=== PATIENT | male | born 1950 | race Caucasian/White ===

== ENCOUNTER 2020-07-16 15:13 | Outpatient (CLI) | payer OTHER, SELFPAY ==
--- NOTE | 2020-07-16 15:21 | XR_ITS ---
WS: [id number] SCREENING DEXA SCAN [facility] CLINICAL INFORMATION: HISTORY OF OSTEOPOROSIS F/U COMPARISON: None. FINDINGS: The L1-L4 bone mineral density measures 0.991 g/cm2. This corresponds to a T score score of -1.9 and Z score of -0.7. Left femoral neck bone mineral density measures 0.743 g/cm2. This corresponds to a T score of -2.5 an d Z score of -1.4. Right femoral neck bone mineral density measures 0.722 g/cm2. This corresponds to a T score -2.6of an d Z score of -1.5. Mean femoral neck bone mineral density measures 0.733 g/cm2. This corresponds to a T score of -2.6 an d Z score of -1.4. XR/XR DEXA axial skeleton* [id number] IMPRESSION: Osteoporosis Patient's FRAX calculated 10 year probability for major osteoporotic fracture i s 19.4 % and osteoporotic hip fracture is 10.2%.
== END 2020-07-16 15:14 | disposition home or self-care (01) ==
LOC: RADWPI 15:17
PROVIDERS: PCP Family Medicine; Visit Provider Family Medicine
DX: Z87.898 Personal history of other specified conditions (principal); M81.0 Age-related osteoporosis without current pathological fracture
CPT/HCPCS: 77080

== ENCOUNTER → 2020-08-19 16:22 | Outpatient (BNVA) | payer OTHER, SELFPAY | PROVIDERS: PCP Family Medicine; Visit Provider Surgery | DX: Z11.59 Encounter for screening for other viral diseases (principal); K63.5 Polyp of colon | CPT/HCPCS: 87635 ==

== ENCOUNTER 2021-01-04 11:39 | Emergency (ER) | payer OTHER, SELFPAY ==
[2021-01-04 11:49] VITALS: BP 129/80; PULSE 101; RESP 20; TEMP 37.1; O2SAT 92
--- NOTE | 2021-01-04 11:52 | ECG_ITS ---
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 Measurements Intervals [place]akin Rate: 93 P: 72 NC: 160 QRS: 75 QRSD: 90 T: 69 QT: 346 QTc: 431 Interpretive Statements SINUS RHYTHM WITH SINUS ARRHYTHMIA Compared to ECG 06/08/2018 10:07:10 No significant changes Electronically Signed On 01-04-2021 18:23:49 CDT by Gabe Ruff M.D. [email or web address]/[id number]
--- NOTE | 2021-01-04 11:52 | XRR_ITS ---
PROCEDURE INFORMATION: Exam: XR Chest Exam date and time: 01/04/2021 11:53 AM Age: 70 years old Clinical indication: Chest wall pain; Additional info: Dyspnea/cough TECHNIQUE: Imaging protocol: XR of the chest. Views: 1 view. COMPARISON: CR Chest 1 [place] [id number] 06/08/2018 10:50 AM FINDINGS: Lungs: Unremarkable. No consolidation. Pleural spaces: Unremarkable. No pleural effusion. No pneumothorax. Heart/Mediastinum: Unremarkable. No cardiomegaly. Bones/joints: Unremarkable. XR/XR chest 1V portable [id number] IMPRESSION: No acute findings.
--- NOTE | 2021-01-04 12:03 | ED_ITS ---
HPI - SOB/Dyspnea General: Chief Complaint: Shortness of Breath/Dyspnea Stated Complaint: SOB Time Seen by Provider: 01/04/21 11:47 History of Present Illness: HPI Narrative: 70-year-old male with a history of COPD comes in complaining of increasing cough and shortness of breath for the most part began last night he has a mild productive cough. He has had some chest discomfort no radiation of the pain low-grade fever. He uses albuterol at home is not on any oxygen at home he is also on prednisone 10 mg daily. He is continue to use all of his regular maintenance medications. History of chest pain. MD elicited complaint: shortness of breath and cough Pertinent past history: COPD Onset (ago): hour(s) Timing: constant Severity: mild Exacerbating factors: exertion and coughing Relieving factors: rest Known history of: COPD Associated symptoms: Reports cough, myalgias and nausea; Deny abdominal pain, chest congestion, chest pain, diaphoresis, dizziness, extremity pain, fever(s), hemoptysis, lightheadedness, orthopnea, palpitations, paresthesias, polydipsia, polyuria, rash, sense of impending doom, syncope or vomiting Treatment prior to arrival: none Review of Systems Const: Denies: fever(s) or diaphoresis ENMT: Denies: throat pain, ear or mastoid pain, nasal discharge or nasal congestion Card: Denies: chest pain, palpitations, lightheadedness, syncope or orthopnea Resp: Denies: hemoptysis or chest congestion GI: Reports: nausea; Denies: abdominal pain or vomiting : Denies: flank pain, dysuria, urinary frequency or urinary urgency Musc: Denies: extremity pain Skin/Breast: Denies: rash or pruritus Neuro: Denies: dizziness Endo: Denies: polyuria or polydipsia PFSH ED PFSH: Medical History COPD (chronic obstructive pulmonary disease) Dyslipidemia GERD (gastroesophageal reflux disease) HTN (hypertension), benign PAD (peripheral artery disease) Surgical History H/O circumcision H/O colonoscopy 2014 H/O esophagogastroduodenoscopy History of hip surgery S/P AAA (abdominal aortic aneurysm) repair Family History Other CAD (coronary artery disease) Cancer Diabetes Hypertension Stroke Denies family history of Anesthesia complication Bleeding disorder Social History Smoking and tobacco status: never smoked Alcohol intake: never Household members: significant other Marital status: Single Current occupational status: retired History of recent travel: No Physical Exam Const: COMMON NORMALS: no acute distress GENERAL APPEARANCE: cooperative and comfortable ORIENTATION/CONSCIOUSNESS: Yes awake, Yes oriented to person, Yes oriented to place and Yes oriented to time HENMT: COMMON NORMALS: normocephalic, atraumatic, hearing grossly normal bilaterally and external ears normal HEAD & SCALP: normocephalic and atraumatic EXTERNAL EAR: Yes external ears normal Eye: COMMON NORMALS: Equal, round and reactive pupils present, EOMs intact bilaterally, conjunctivae normal and no scleral icterus CONJUNCTIVA: Yes conjunctivae normal PUPIL: Yes Equal, round and reactive pupils present Neck/C-Spine: COMMON NORMALS: full ROM, no lymphadenopathy, supple and no JVD Lymph: LYMPHATIC: no lymphadenopathy noted and no lymphedema noted Resp: AUSCULTATION: rhonchi and wheezes Cardio: COMMON NORMALS: no JVD, regular rhythm and No murmurs present (Cardio) RATE: tachycardic RHYTHM: regular rhythm GI: COMMON NORMALS: Soft to palpation and No hepatosplenomegaly present AUSCULTATION: Yes normoactive bowel sounds PALPATION: Yes Soft to palpation, No Tenderness to palpation present (GI), No Guarding due to palpation present (GI) and Yes No hepatosplenomegaly present Extremity: COMMON NORMALS: normal to inspection, capillary refill normal, no clubbing, cyanosis or edema, no calf tenderness and no pedal edema Neuro: SENSORIUM/ORIENTATION: Yes oriented to person, Yes oriented to place and Yes oriented to time Skin: COMMON NORMALS: no rashes or lesions noted GENERAL SKIN EXAM: no rashes or lesions noted Course Vital Signs: Vital signs: Vital Signs Temperature 98.7 F 01/04/21 11:49 Pulse Rate 93 01/04/21 18:15 Respiratory Rate 18 01/04/21 18:15 Blood Pressure 99/76 01/04/21 18:15 Pulse Oximetry 93 01/04/21 18:15 MDM - SOB/Dyspnea MDM Narrative: Medical decision making narrative: Improved after nebulizers. Chest x-ray shows no acute pneumonia. He is not requiring any oxygen at this point. His Covid negative will start on doxycycline increase steroids recheck with his primary care within the next 2 to 3 days if worsens return to the emergency room. EKG troponin unremarkable Lab Data: Labs: Lab Results 01/04/21 01/04/21 01/04/21 Range/Units 11:59 12:55 12:55 WBC 16.3 H (4.0-10.0) 10^3/ uL RBC 4.62 (4.1-5.3) 10^6/u L Hgb 15.1 (11.7-16.6) g/dL Hct 42.1 (42.0-52.0) % MCV 91.1 (80-94) fL MCH 32.7 (28.0-34.0) pg MCHC 35.9 (30.0-36.0) g/dL RDW 11.7 L (12.1-15.1) % Plt Count 205 (130-400) 10^3/c mm MPV 9.4 (7.4-10.4) fL Neut % (Auto) 89.4 % Lymph % (Auto) 4.7 % Erie % (Auto) 4.5 % Eos % (Auto) 0.5 % Baso % (Auto) 0.5 % Neut # (Auto) 14.57 H (1.8-7.7) 10^3/u L Lymph # (Auto) 0.8 (0.8-4.8) 10^3/u L [place] # (Auto) 0.7 (0.2-0.9) 10^3/u L Eos # (Auto) 0.1 (0.0-0.8) 10^3/u L Baso # (Auto) 0.1 (0.0-0.1) 10^3/u L Nucleated RBC % (a uto) 0 % Nucleated RBCs # 0.0 /100WBC Specimen Type Arterial Sample Site Radial, left ABG pH 7.50 H (7.35-7.45) ABG pCO2 33.2 L (35-45) mmHg ABG pO2 56.9 L (80.0-100.0) mmH g ABG HCO3 25.7 (22-26) mmol/L ABG O2 Saturation 93.3 ABG Base Excess 3.0 H (-2.0-2.0) mmol/ L William Test Pos A-a O2 Gradient 6.8 (5-10) mmHg Hematocrit 47.9 (42-52) % Hgb O2 Saturation 91.3 L (95-100) % Carboxyhemoglobin 1.4 (0.4-20.1) %THgb Methemoglobin 0.7 (0.4-1.5) % Total Hemoglobin 15.6 (14-18) g/dL Sodium 139.0 138 (131-143) mmol/L Potassium 3.5 3.8 (3.5-5.0) mmol/L Glucose 95.0 92 (70-115) mg/dL Ionized Calcium 1.2 (1.1-1.4) mmol/L O2 Delivery Device Room air FiO2 21.0 % Business Services Specialist Sales ID Cak Chloride 103 (98-107) mmol/L Carbon Dioxide 25 (22-29) mmol/L Anion Gap 13.8 (5-19) BUN 10 (8-23) mg/dL Creatinine 0.9 (0.7-1.2) mg/dL GFR Calculation 83.7 L (90-130) mL/min Calculated Osmolal ity 285 (285-295) mOsm/k g Calcium 8.8 (8.5-10.5) mg/dL Total Bilirubin 0.7 (0.15-1.2) mg/dL AST 19 (0-40) U/L ALT 20 (0-41) U/L Alkaline Phosphata se 61 (40-130) IU/L Troponin T Baselin e (0-15) ng/L Troponin T 120 Min [place] (0-15) ng/L Delta Troponin T (0-10) ABS# Total Protein 5.8 L (6.6-8.7) g/dL Albumin 4.2 (3.5-5.2) g/dL Globulin 1.6 (1.3-4.6) g/dL SARS-CoV-2 Ag (Rap id) (Negative) 01/04/21 01/04/21 01/04/21 Range/Units 12:55 13:30 15:00 WBC (4.0-10.0) 10^3/ uL RBC (4.1-5.3) 10^6/u L Hgb (11.7-16.6) g/dL Hct (42.0-52.0) % MCV (80-94) fL MCH (28.0-34.0) pg MCHC (30.0-36.0) g/dL RDW (12.1-15.1) % Plt Count (130-400) 10^3/c mm MPV (7.4-10.4) fL Neut % (Auto) % Lymph % (Auto) % [place] % (Auto) % Eos % (Auto) % Baso % (Auto) % Neut # (Auto) (1.8-7.7) 10^3/u L Lymph # (Auto) (0.8-4.8) 10^3/u L [place] # (Auto) (0.2-0.9) 10^3/u L Eos # (Auto) (0.0-0.8) 10^3/u L Baso # (Auto) (0.0-0.1) 10^3/u L Nucleated RBC % (a uto) % Nucleated RBCs # /100WBC Specimen Type Sample Site ABG pH (7.35-7.45) ABG pCO2 (35-45) mmHg ABG pO2 (80.0-100.0) mmH g ABG HCO3 (22-26) mmol/L ABG O2 Saturation ABG Base Excess (-2.0-2.0) mmol/ L William Test A-a O2 Gradient (5-10) mmHg Hematocrit (42-52) % Hgb O2 Saturation (95-100) % Carboxyhemoglobin (0.4-20.1) %THgb Methemoglobin (0.4-1.5) % Total Hemoglobin (14-18) g/dL Sodium (131-143) mmol/L Potassium (3.5-5.0) mmol/L Glucose (70-115) mg/dL Ionized Calcium (1.1-1.4) mmol/L O2 Delivery Device FiO2 % Business Services Specialist Sales ID Chloride (98-107) mmol/L Carbon Dioxide (22-29) mmol/L Anion Gap (5-19) BUN (8-23) mg/dL Creatinine (0.7-1.2) mg/dL GFR Calculation (90-130) mL/min Calculated Osmolal ity (285-295) mOsm/k g Calcium (8.5-10.5) mg/dL Total Bilirubin (0.15-1.2) mg/dL AST (0-40) U/L ALT (0-41) U/L Alkaline Phosphata se (40-130) IU/L Troponin T Baselin e 11 (0-15) ng/L Troponin T 120 [address] [place] 9.25 (0-15) ng/L Delta Troponin T -1.75 L (0-10) ABS# Total Protein (6.6-8.7) g/dL Albumin (3.5-5.2) g/dL Globulin (1.3-4.6) g/dL SARS-CoV-2 Ag (Rap id) Negative (Negative) Discharge Plan Discharge Patient Disposition: Home Clinical Impression: Acute exacerbation of chronic obstructive airways disease Condition: Stable Prescriptions: New doxycycline hyclate 100 mg capsule 100 mg PO BID 10 Days Qty: 20 RF: 0 prednisone 50 mg tablet 50 mg PO DAILY 7 Days Qty: 7 RF: 0 Discontinued prednisone 10 mg tablet 10 mg PO DAILY RF: 0 No Action albuterol sulfate 2.5 mg /3 mL (0.083 %) solution for nebulization 2.5 mg inhalation Q6H PRN (Reason: Dyspnea) RF: 0 amlodipine 5 mg tablet 5 mg PO DAILY RF: 0 azithromycin 500 mg tablet 500 mg PO .COMPLEX RF: 0 budesonide-formoterol 160-4.5 mcg/actuation HFA aerosol inhaler 2 puff inhalation Q12H RF: 0 cholecalciferol (vitamin D3) 50 mcg (2,000 unit) capsule 50 mcg PO DAILY RF: 0 multivitamin Tablet 1 tab PO DAILY RF: 0 rosuvastatin 20 mg tablet 10 mg PO DAILY RF: 0 tiotropium bromide 2.5 mcg/actuation mist 2 inh inhalation QAM RF: 0 omeprazole 20 mg Tablet,Delayed Release (Dr/Ec) 20 mg PO DAILY RF: 0 bee pollen 1,000 mg Tablet,Chewable 1,000 mg PO BID RF: 0 Discharge Orders: Discharge ED (Routine); Ordered 01/04/21 Ordered By: Jose Costa Referrals: Rutyh Piña MD [Primary Care Provider] - Discharge Diet: Usual diet Discharge Activity: Increase activity as tolerated Patient Instructions: Opioid Safety Activity Restrictions/Additional Instructions: You were tested for COVID-19 today. Recommend that you remain in self quarantine until the results are available. Return to the emergency room if you have worsening problems. Follow-up with your doctor within the next week. Coding Level of Care Code ED Body And Fender Mechanic for Brandy Fwd Exam Comprehensive
[2021-01-04 12:10] LABS: ABG PCO2 33.2 mmHg (35-45); Alveolar-Arterial Oxygen Gradi 6.8 mmHg (5-10); Arterial Blood Gas Hematocrit 47.9 % (42-52); Blood Gas Allen Test Pos; Blood Gas Operator Identificat CAK; Blood Gas Sample Site Radial, left; Blood Gas Sample Type Arterial; Carboxyhemoglobin 1.4 %THgb (0.4-20.1); HCO3 ABG 25.7 mmol/L (22-26); HGB O2 Sat 91.3 % (95-100); Ionized Calcium Level - ABG 1.2 mmol/L (1.1-1.4); Methemoglobin 0.7 % (0.4-1.5); Oxygen Device ROOM AIR; Oxygen Saturation ABG 93.3; PO2 ABG 56.9 mmHg (80.0-100.0); Potassium Level - ABG 3.5 mmol/L (3.5-5.0); Total Hemoglobin 15.6 g/dL (14-18)
[2021-01-04 13:05] LABS: Basophils # 0.1 10^3/uL (0.0-0.1); Basophils % 0.5 %; Eosinophils # 0.1 10^3/uL (0.0-0.8); Eosinophils % 0.5 %; Hematocrit 42.1 % (42.0-52.0); Hemoglobin 15.1 g/dL (11.7-16.6); Lymphocytes # 0.8 10^3/uL (0.8-4.8); Lymphocytes % 4.7 %; Mean Corpuscular HGB Conc 35.9 g/dL (30.0-36.0); Mean Corpuscular Hemoglobin 32.7 pg (28.0-34.0); Mean Corpuscular Volume 91.1 fL (80-94); Mean Platelet Volume 9.4 fL (7.4-10.4); Monocytes # 0.7 10^3/uL (0.2-0.9); Monocytes % 4.5 %; Neutrophils # 14.57 10^3/uL (1.8-7.7); Neutrophils % 89.4 %; Nucleated Red Blood Cells % 0 %; Platelet Count 205 10^3/cmm (130-400); Red Blood Count 4.62 10^6/uL (4.1-5.3); Red Cell Distribution Width 11.7 % (12.1-15.1); White Blood Count 16.3 10^3/uL (4.0-10.0)
[2021-01-04 13:22] LABS: Alanine Aminotransferase 20 U/L (0-41); Albumin Level 4.2 g/dL (3.5-5.2); Alkaline Phosphatase 61 IU/L (40-130); Anion Gap 13.8 (5-19); Aspartate Amino Transferase 19 U/L (0-40); Blood Urea Nitrogen 10 mg/dL (8-23); Calcium 8.8 mg/dL (8.5-10.5); Carbon Dioxide 25 mmol/L (22-29); Chloride 103 mmol/L (98-107); Globulin 1.6 g/dL (1.3-4.6); Glomerular Filtration Rate 83.7 mL/min (90-130); Glucose 92 mg/dL (65-115); Osmolality Calculated 285 mOsm/kg (285-295); Potassium 3.8 mmol/L (3.5-5.1); Sodium 138 mmol/L (136-145); Total Bilirubin 0.7 mg/dL (0.15-1.2); Total Protein 5.8 g/dL (6.6-8.7)
[2021-01-04 13:26] LABS: Troponin(5th) Baseline 11 ng/L (0-15)
--- NOTE | 2021-01-04 13:52 | ECG_ITS ---
[facility] Test Date: 2021-01-04 Pat Name: Brian Russo Department: Room: Gender: Male Testing Tech: : 1950 Requested By: Jose Nguyen Order Number: [id number] Renita MD: Gabe Ruff M.D. Measurements Intervals [place]ift Rate: 89 P: 74 VA: 161 QRS: 79 QRSD: 97 T: 75 QT: 357 QTc: 435 Interpretive Statements SINUS RHYTHM Compared to ECG 01/04/2021 12:12:13 Sinus arrhythmia no longer present Electronically Signed On 01-04-2021 18:25:09 CDT by Gabe Ruff M.D. [email or web address] [email or web address] anderson hospitalIoxus/store/OM/[id number]
[2021-01-04 14:31] LABS: SARS Covid-2 Antigen Negative (Negative)
[2021-01-04 15:37] LABS: Troponin 5 2HR 9.25 ng/L (0-15)
[2021-01-04 15:45] LABS: Troponin 5 2HR Delta -1.75 ABS# (0-10)
[2021-01-04] MEDS: piperacillin-tazobactam 3.375 GM in sodium chloride 0.9% (plus) 50 ML IV (16:00)
[2021-01-04] MEDS: levofloxacin-dextrose 5 % 750 MG/150 ML PREMIX 100 MG IV (16:13)
[2021-01-04 17:35] VITALS: BP 99/76; PULSE 93; RESP 18; O2SAT 93
[2021-01-04] MEDS: acetaminophen 500 mg Tablet 1000 MG PO (18:00)
[2021-01-04 18:15] VITALS: BP 99/76; PULSE 93; RESP 18; O2SAT 93
[2021-01-05 16:00] LABS: Coronavirus Test Green County Not Detected
== END 2021-01-04 18:16 | disposition home or self-care (01) ==
PROVIDERS: Emergency Provider Family Medicine; PCP Family Medicine
DX: J44.1 Chronic obstructive pulmonary disease with (acute) exacerbation (principal); E78.5 Hyperlipidemia, unspecified; I10 Essential (primary) hypertension
CPT/HCPCS: 36415; 36600; 71045; 80051; 80053; 82330; 82805; 84484; 85025; 87040; 87426; 87635; 93005; 96365; 96367; 96375; 99284; J1956; J2543; J2930

== ENCOUNTER → 2021-12-09 09:18 | Outpatient (BNVA) | payer OTHER, SELFPAY | PROVIDERS: PCP Family Medicine; Referring Provider Family Medicine; Visit Provider Orthopaedic Surgery | DX: S22.009A Unspecified fracture of unspecified thoracic vertebra, initial encounter for closed fracture (principal); W19.XXXA Unspecified fall, initial encounter | CPT/HCPCS: 99204 ==

== ENCOUNTER 2022-01-24 02:30 | Emergency (ER) | payer OTHER, SELFPAY ==
[2022-01-24 02:36] VITALS: BP 175/91; PULSE 85; RESP 20; TEMP 36.7; O2SAT 98; BMI 17.9
[2022-01-24] MEDS: ondansetron 4 MG Tablet PO (03:39)
[2022-01-24] MEDS: HYDROmorphone 1 mg/mL INJ 1 mL IM (03:39)
--- NOTE | 2022-01-24 03:39 | PC.NURSE ---
Pt. states that he does not have a ride home , but he does not want a pill or a prescription that he can take home , because he needs the shot for the pain now.
--- NOTE | 2022-01-24 04:39 | W.ED.BACK ---
HPI - Back Pain/Injury General: Chief Complaint: Back Pain/Injury Stated Complaint: back pain Time Seen by Provider: 01/24/22 02:31 Source: patient History of Present Illness: 71-year-old male with a history of chronic back pain. He was diagnosed with a, passion fracture at T5 he says in October. He has had pain since that time. He has not been taking pain medication, although he experienced an exacerbation of his pain tonight, and took one of his 's tramadol without much relief. He has pain only with movement. He is lying resting comfortably on my exam. Pain is not radicular in nature. He has no increased weakness, and no loss of control of bowel or bladder function. MD elicited complaint: back pain Pertinent past history: prior back pain Onset (ago): week(s) Timing: intermittent Severity: similar to previous episodes Quality: sharp and aching Location: thoracic spine Radiation: none Exacerbating factors: movement and walking Relieving factors: none Associated symptoms: Deny abdominal pain, change in bowel habits, fecal incontinence, fever(s), nausea, tingling/numbness/burning, vomiting or weakness Review of Systems Const: Denies: fever(s) Card: Denies: chest pain Resp: Denies: dyspnea GI: Denies: abdominal pain, nausea, vomiting, fecal incontinence or change in bowel habits Neuro: Denies: headache(s) PFSH ED PFSH: Medical History COPD (chronic obstructive pulmonary disease) Dyslipidemia GERD (gastroesophageal reflux disease) HTN (hypertension), benign PAD (peripheral artery disease) Surgical History H/O circumcision H/O colonoscopy 2014 H/O esophagogastroduodenoscopy History of hip surgery S/P AAA (abdominal aortic aneurysm) repair Family History Other CAD (coronary artery disease) Cancer Diabetes Hypertension Stroke Denies family history of Anesthesia complication Bleeding disorder Social History Smoking and tobacco status: former smoker Alcohol intake: never Household members: significant other Marital status: Single Current occupational status: retired History of recent travel: No Physical Exam Const: COMMON NORMALS: no acute distress GENERAL APPEARANCE: cooperative NUTRITIONAL APPEARANCE: cachectic HENMT: COMMON NORMALS: normocephalic and atraumatic HEAD & SCALP: normocephalic and atraumatic Eye: COMMON NORMALS: Equal, round and reactive pupils present and EOMs intact bilaterally PUPIL: Yes Equal, round and reactive pupils present Chest: COMMONS NORMALS: normal inspection of the chest CHEST: Yes Symmetrical chest wall rise Resp: COMMON NORMALS: normal respiratory effort, No use of accessory muscles and clear to auscultation bilaterally AUSCULTATION: clear to auscultation bilaterally Cardio: COMMON NORMALS: regular rate and regular rhythm RATE: regular rate RHYTHM: regular rhythm GI: COMMON NORMALS: Normal to inspection, nondistended, normoactive bowel sounds present, Soft to palpation and non-tender PALPATION: Yes Soft to palpation Back/Pelvis: OTHER: Exam lumbar spine reveals no step-off deformity. There is no discrete midline tenderness. There are some tenderness to the paraspinal musculature bilaterally in the thoracic region. There is no radicular pain. No weakness to the lower extremities. Extremity: COMMON NORMALS: capillary refill normal Neuro: CHUCK COMA SCALE: document GCS findings [place] coma scale eye opening: Spontaneous [place] coma scale verbal response: Orientated Chuck coma scale motor response: Obey commands Chuck coma scale total score: 15 SENSORY EXAM: Yes extremities (Intact) Course Vital Signs: Vital signs: Vital Signs Temperature 98.1 F 01/24/22 02:36 Pulse Rate 85 01/24/22 02:36 Respiratory Rate 20 H 01/24/22 02:36 Blood Pressure 175/91 01/24/22 02:36 Pulse Oximetry 98 01/24/22 02:36 MDM - Back Pain/Injury Medical Decision Making Patient having exacerbation of chronic back pain this morning. He has no red flag symptoms. Pain is mainly with movement. He rests comfortably when he is lying still. He is given pain medication, and allowed discharge. Close outpatient follow-up with his doctor. He has an appointment on Monday. Discharge Plan Discharge Patient Disposition: Home Clinical Impression: Back pain Condition: Stable Prescriptions: Continued hydrocodone-acetaminophen 5-325 mg tablet 1 tab PO Q4H PRN (Reason: pain) 7 Days Qty: 10 0RF No Action albuterol sulfate 2.5 mg /3 mL (0.083 %) solution for nebulization 2.5 mg inhalation Q6H PRN (Reason: Dyspnea) 0RF amlodipine 5 mg tablet 5 mg PO DAILY 0RF budesonide-formoterol 160-4.5 mcg/actuation HFA aerosol inhaler 2 puff inhalation Q12H 0RF cholecalciferol (vitamin D3) 50 mcg (2,000 unit) capsule 50 mcg PO DAILY 0RF multivitamin Tablet 1 tab PO DAILY 0RF rosuvastatin 20 mg tablet 10 mg PO DAILY 0RF tiotropium bromide 2.5 mcg/actuation mist 2 inh inhalation QAM 0RF omeprazole 20 mg Tablet,Delayed Release (Dr/Ec) 20 mg PO DAILY 0RF bee pollen 1,000 mg Tablet,Chewable 1,000 mg PO BID 0RF Discharge Orders: Discharge ED (Routine); Ordered 01/24/22 Ordered By: Ritesh Bryan Referrals: Ruthy Piña MD [Primary Care Provider] - 1-3 days Discharge Diet: Advance as tolerated Discharge Activity: Increase activity as tolerated Patient Instructions: Back Pain (ED), Opioid Safety Activity Restrictions/Additional Instructions: Return for worsening pain despite treatment, fever, vomiting or diarrhea, shortness of breath, chest discomfort, any other concerning symptoms. Coding Level of Care Code ED Manager Recovery for Brandy Reece
[2022-01-24 05:27] VITALS: BP 168/72; PULSE 103; RESP 18; O2SAT 92
[2022-01-24 08:08] VITALS: BP 168/72; PULSE 103; RESP 18; O2SAT 92
== END 2022-01-24 08:09 | disposition home or self-care (01) ==
PROVIDERS: Emergency Provider Emergency Medicine; PCP Family Medicine
DX: M54.6 Pain in thoracic spine (principal); G89.29 Other chronic pain
CPT/HCPCS: 96372; 99283; J1170; Q0162

== ENCOUNTER 2022-01-25 14:37 | Emergency (ER) | payer OTHER, SELFPAY | END 2022-01-26 00:32 | disposition left against medical advice (07) | PROVIDERS: Emergency Provider Family Medicine; PCP Family Medicine | DX: Z53.21 Procedure and treatment not carried out due to patient leaving prior to being seen by health care provider (principal); S22.050A Wedge compression fracture of T5-T6 vertebra, initial encounter for closed fracture; X58.XXXA Exposure to other specified factors, initial encounter | CPT/HCPCS: 72070; 99214 ==

== ENCOUNTER 2022-02-08 09:27 | Outpatient (CLI) | payer OTHER, SELFPAY ==
--- NOTE | 2022-02-08 09:30 | MR_ITS ---
WS: [id number] MRI THORACIC SPINE noncontrast. HISTORY: Fell several months ago. Severe back pain. Known thoracic fracture. COMPARISON: Thoracic spine radiograph 01/26/2012 TECHNIQUE: Multiplanar sequences are performed in sagittal and axial planes. Increase in the cervical lordosis and thoracic kyphosis. T3: Loss of the normal superior endplate of T3 anteriorly. No retropulsion of the vertebral body. Mix ed low and high signal along the superior endplate. Loss of height approximately 20%. T5: 50% compression fracture with very slight posterior bulging of the mid vertebral body without con tact on the cord. Marrow edema slightly greater to the LEFT of midline. No additional fractures are identified. No additional edema. Signal within the cord is normal. Conus tapers normally and ends at T12. T1-2: Normal. T2-3: Mild facet arthritis. No stenosis. T3-4: Normal. T4-5: Normal. T5-6: Slight retropulsion of the posterior mid T5 vertebral body by 2 mm. No cord contact. T6-7: Normal. T7-8: Normal. T8-9: Mild bilateral facet joint arthritis. No stenosis. T9-10: Mild facet arthritis. T10-11: Mild bilateral facet arthritis. Mild foraminal narrowing. T11-12: Mild bilateral facet arthritis. Paravertebral soft tissues are negative. Mild atherosclerotic plaque throughout the thoracic aorta. MR/MR thoracic spin wo con* [id number] IMPRESSION: 1. Subacute T3 and T5 fractures as described above. 2. 2 mm retropulsion of the mid T5 vertebral body. No cord contact. 3. Multilevel mild facet arthritis as above.
== END 2022-02-08 09:28 | disposition home or self-care (01) ==
PROVIDERS: PCP Family Medicine; Visit Provider Orthopaedic Surgery
DX: M48.54XA Collapsed vertebra, not elsewhere classified, thoracic region, initial encounter for fracture (principal); M47.894 Other spondylosis, thoracic region; M54.6 Pain in thoracic spine
CPT/HCPCS: 72146

== ENCOUNTER → 2022-02-15 14:25 | Outpatient (BNVA) | payer OTHER, SELFPAY | PROVIDERS: PCP Family Medicine; Visit Provider Physician Assistant | DX: S22.030A Wedge compression fracture of third thoracic vertebra, initial encounter for closed fracture (principal); S22.050A Wedge compression fracture of T5-T6 vertebra, initial encounter for closed fracture; X58.XXXA Exposure to other specified factors, initial encounter | CPT/HCPCS: 99213; 99214 ==

== ENCOUNTER 2022-03-04 07:10 | Day surgery (SDC) | payer OTHER, SELFPAY ==
[2022-03-02 10:38] VITALS: BMI 19.6
--- NOTE | 2022-03-02 11:23 | ANES.PREANE2 ---
Pre-Anesthetic Assessment Height/Weight: Height 1.83 m Weight 65.771 kg Preop Diagnosis: compression fracture Operation Date: 03/04/22 08:40 Proposed Procedures p Kyphoplasty T3 T5 73373/S22.000A(Not Applicable) - DO Denice Siddiqui anesthetic complications: none Was Beta Kami taken within 24 hours: N/A Was Clonidine taken within 24 hours: N/A Social No alcohol and No tobacco Exam alert, oriented x 3, clear to auscultation bilaterally and regular rate & rhythm Airway Submandibular: within normal limits Cervical ROM: within normal limits Mallampati: Class II Dentition: false Pulmonary Cough and Exertional Dyspnea Denies home O2 use CV/HEM Peripheral Vascular Disease Unable to ambulate around grocery store due to TRAORE Hx of AAA s/p endovascular stent None reported Hepatic None reported GI Gastroesophageal Reflux Disease (Well controlled ) Metabolic None reported Musc/skel Lower Back Pain and Osteoarthritis/DJD Neuropsych None reported Anesthetic Plan ASA status: 3 (71 year old male with hx of COPD, TRAORE, HTN, AAA s/p stent, GERD ) Anesthesia: Anesthesia Evaluation and General Other: We discussed risk and benefits of general anesthesia including PONV, sore throat (sometimes severe), corneal abrasion, positioning and peripheral nerve injuries, life threatening allergic reaction, post operative ICU admission requiring prolonged intubation, aspiration, stroke, heart attack, , and rare incidences of recall. Patient consents to proceed with general anesthesia. Risk of > 500 ml blood loss (7ml/kg in children): No Other Pertinent Information Labs pending drawn 03/02/22 Medications/Allergies Home Medications Medication Instructions Recorded Confirmed Last Taken Type albuterol sulfate 2.5 mg inhalation Q6H PRN Dyspnea 07/07/20 03/02/22 Unknown History amlodipine 5 mg tablet 5 mg PO DAILY 07/07/20 03/02/22 01/03/21 History budesonide-formoterol HFA 160 2 puff inhalation Q12H 07/07/20 03/02/22 01/03/21 History mcg-4.5 mcg/actuation aerosol inhaler (Symbicort) cholecalciferol (vitamin D3) 50 50 mcg PO DAILY 07/07/20 03/02/22 01/03/21 History mcg (2,000 unit) capsule multivitamin 1 tab PO DAILY 07/07/20 03/02/2201/03/21 History rosuvastatin 20 mg tablet 10 mg PO DAILY 07/07/20 03/02/22 01/03/21 History tiotropium bromide 2.5 2 inh inhalation QAM 07/07/20 03/02/22 01/03/21 History mcg/actuation mist for inhalation (Spiriva Respimat) bee pollen 1,000 mg chewable tablet 1,000 mg PO BID 08/21/20 03/02/22 01/03/21 History omeprazole 20 mg tablet,delayed 20 mg PO DAILY 08/21/20 03/02/22 01/03/21 History release hydrocodone 5 mg-acetaminophen 325 1 tab PO Q4H PRN pain 7 days #10 02/15/22 03/02/22 Unknown Rx mg tablet tabs prednisone 50 mg tablet 50 mg PO DAILY 03/02/22 03/02/22 Unknown History Allergies Allergy/AdvReac Type Severity Reaction Status Date / Time tetracycline AdvReac ADR-Halluci Verified 03/02/22 10:[facility] Medical History COPD (chronic obstructive pulmonary disease) Dyslipidemia GERD (gastroesophageal reflux disease) HTN (hypertension), benign PAD (peripheral artery disease) Surgical History H/O circumcision H/O colonoscopy 2014 H/O esophagogastroduodenoscopy History of hip surgery S/P AAA (abdominal aortic aneurysm) repair Family History Other CAD (coronary artery disease) Cancer Diabetes Hypertension Stroke Denies family history of Anesthesia complication Bleeding disorder Social History Smoking and tobacco status: former smoker Alcohol intake: never Household members: significant other Marital status: Single Current occupational status: retired History of recent travel: No Data Anesthesia Cardiac Studies: No Data to Display
[2022-03-04] VITALS (9 sets, daily range): BP systolic 110–165; BP diastolic 68–99; PULSE 67–97; RESP 16–18; TEMP 36.4–37; O2SAT 96–99
--- NOTE | 2022-03-04 | SCC_ITS ---
Procedure done: T5 kyphoplasty 147.4 seconds of fluoroscopic guidance, for a cumulative dose of 35.6 mGy, was provided to Dr. Villavicencio by the radiology department. C-arm images of the thoracic spine were saved for the patient's permanent record. [facility]
--- NOTE | 2022-03-04 | SC_ITS ---
WS: [id number] Exam: XR thoracic spine 1V [id number] Date/Time of Exam: 03/04/2022 10:16 AM Reason For Exam: OR PICS AP and lateral intraoperative C-arm images of the mid T-spine are submitted for evaluation. The images depict vertebral plasty involving a single thoracic compression fracture presumably T5 as noted on prior imaging studies. No other operative findings are identified.
[2022-03-04 07:39] LABS: Basophils # 0.1 10^3/uL (0.0-0.1); Basophils % 0.8 %; Eosinophils # 0.1 10^3/uL (0.0-0.8); Hematocrit 45.4 % (42.0-52.0); Hemoglobin 15.8 g/dL (11.7-16.6); Mean Corpuscular HGB Conc 34.8 g/dL (30.0-36.0); Mean Corpuscular Volume 92.1 fl (80-94); Mean Platelet Volume 9.1 fL (7.4-10.4); Monocytes # 0.8 10^3/uL (0.2-0.9); Monocytes % 5.8 %; Neutrophils # 9.15 10^3/uL (1.8-7.7); Neutrophils % 69.1 %; Nucleated Red Blood Cells % 0 %; Platelet Count 293 10^3/cmm (130-400); Red Blood Count 4.93 10^6/uL (4.1-5.3); Red Cell Distribution Width 11.9 % (12.1-15.1); White Blood Count 13.2 10^3/uL (4.0-10.0)
--- NOTE | 2022-03-04 07:40 | P.ANESUD_ITS ---
Pre-Anesthetic Update Pre-Anesthetic Assessment: Date of Surgery/Procedure: 03/04/22 Preop Susie gnosis: Compression fracture thoracic 3 and 5 Proposed Procedure: Operation Date: 03/04/22 08:40 Proposed Procedures p Kyphoplasty T3 T5 87209/S22.000A(Not Applicable) - Bob Villavicencio, DO Any changes to Pre-Anesthetic Assessment?: No Last Intake: Intake Last Liquid Date 03/03/22 Last Liquid Time 23:30 Last Solid Date 03/03/22 Last Solid Time 23:30 Labs Last 48hrs: Short CBC 03/04/22 Range/Units 07:30 WBC 13.2 H (4.0-10.0) 10^3/ uL Hgb 15.8 (11.7-16.6) g/dL Hct 45.4 (42.0-52.0) % MCV 92.1 (80-94) fl Plt Count 293 (130-400) 10^3/c mm Neut % (Auto) 69.1 % Neut # (Auto) 9.15 H (1.8-7.7) 10^3/u L Vitals: Temperature 97.8 F 03/04/22 07:22 Temperature Source Temporal Artery S can 03/04/22 07:22 Pulse Rate 95 03/04/22 07:22 Pulse Rhythm 03/04/22 07:22 Pulse Strength 3+ Normal 03/04/22 07:22 Respiratory Rate 18 03/04/22 07:22 Blood Pressure 165/99 03/04/22 07:22 Blood Pressure Holly n 121 03/04/22 07:22 Pulse Oximetry 96 03/04/22 07:22 Oxygen Delivery Me thod 03/04/22 07:22 Exam: Pre-Anes Outpt Exam: alert, oriented x 3, clear to auscultation bilaterally and regular rate & rhythm Cardiac Studies: No Data to Display
[2022-03-04 07:59] LABS: Anion Gap 11.7 (5-19); Blood Urea Nitrogen 11 mg/dL (8-23); Calcium 9.9 mg/dL (8.5-10.5); Carbon Dioxide 28 mmol/L (22-29); Chloride 105 mmol/L (98-107); Glomerular Filtration Rate 95.6 mL/min (90-130); Glucose 83 mg/dL (65-115); Osmolality Calculated 291 mOsm/kg (285-295); Potassium 3.7 mmol/L (3.5-5.1); Sodium 141 mmol/L (136-145)
--- NOTE | 2022-03-04 08:28 | W.PM.OPSUD ---
Surgery/Procedure H&P Update DATE OF PROCEDURE: March 04, 2022 DATE H&P PERFORMED: 02/15/22 H&P UPDATE INFORMATION: I have reviewed H&P completed within last 30 days, I have examined patient prior to procedure and No changes to prior documentation PREOP DIAGNOSIS: Compression fracture thoracic 3 and 5 PLANNED PROCEDURE: Operation Date: 03/04/22 08:40 Proposed Procedures p Kyphoplasty T3 T5 74479/S22.000A(Not Applicable) - Bob Villavicencio DO
[2022-03-04] MEDS: sodium chloride 0.9% 1,000 ML 30 ML IV (08:33)
[2022-03-04] MEDS: ceFAZolin 2,000 MG in sodium chloride 0.9% (plus) 50 ML 100 MG IV (08:58)
--- NOTE | 2022-03-04 10:16 | XR_ITS ---
WS: [id number] Exam: XR thoracic spine 1V [id number] Date/Time of Exam: 03/04/2022 10:16 AM Reason For Exam: OR PICS AP and lateral intraoperative C-arm images of the mid T-spine are submitted for evaluation. The images depict vertebral plasty involving a single thoracic compression fracture presumably T5 as noted on prior imaging studies. No other operative findings are identified.
[2022-03-04] MEDS: meperidine 50 mg/mL INJ 12.5 MG IVP (10:25)
--- NOTE | 2022-03-04 10:52 | PM.OP ---
Operative Report Date of procedure: March 04, 2022 Pre-op diagnosis: Preop Diagnosis wedge traumatic Compression fracture thoracic 3 and 5 Post-op diagnosis: same Procedure done: T5 kyphoplasty Pathology: T5 bone Surgeon: Bob Villavicencio Estimated blood loss (mL): 5 Procedure: T5 kyphoplasty DO procedure after undergoing esthesia placement placed in the prone position all areas impingement well-padded patient's prepped and draped normal sterile fashion. Skin incision made with the lateral aspect of T5 vertebrae on the left side. Awl was used. Then the bite bone biopsy was taken bone biopsy was sent for pathology to see if there is any pathology. Drill was then passed and the balloon balloon was inflated bone cement was then injected as work observed on AP and lateral fluoroscopy some of the cement leaked into the disc base at the T5-6 disc base. But otherwise bone was in good position and cement was in good position. Extension was brought to the T3 level. Schedule was made and the awl was placed followed by the drill followed by balloon. Balloon was inflated and it branched out the lateral wall. Next tension was brought to the other side and bone was drilled and then the balloon without inflating actually bridge through the anterior wall this point I elected to not do any cement into the T3 vertebrae because of the branches of all the rider and did not feel safe placing cement in his vertebrae. Wounds were then irrigated and closed with nylon suture sterile dressings were applied AP lateral fluoroscopy ensure that cement and bone are in good position. Patient was transferred to the PACU in stable condition.
--- NOTE | 2022-03-04 13:20 | ANE.PACU2 ---
Inpatient post-anesthesia follow up: Airway intact: Yes Vital signs: Temperature 97.8 F Pulse Rate 67 Respiratory Rate 16 Blood Pressure 144/77 Pulse Oximetry 96 Oxygen Delivery Me thod Room Air Oxygen Flow Rate Fraction of Inspir ed Oxygen Hydration adequate: Yes Nausea and vomiting: No Pain level: 3 Mental status: Baseline
== END 2022-03-04 11:20 | disposition home or self-care (01) ==
PROVIDERS: Anesthesiology; PCP Family Medicine; Visit Provider Orthopaedic Surgery
PROC: (CPT 22513; principal; 2022-03-04 08:40)
DX: S22.030A Wedge compression fracture of third thoracic vertebra, initial encounter for closed fracture (principal); S22.050A Wedge compression fracture of T5-T6 vertebra, initial encounter for closed fracture; X58.XXXA Exposure to other specified factors, initial encounter; K21.9 Gastro-esophageal reflux disease without esophagitis; Z95.5 Presence of coronary angioplasty implant and graft; J44.9 Chronic obstructive pulmonary disease, unspecified; I10 Essential (primary) hypertension; E78.5 Hyperlipidemia, unspecified; Z87.891 Personal history of nicotine dependence
CPT/HCPCS: 22513; 22515; 72020; 76000; 80048; 85025; 88307; 88311; J1100; J2175; J2370; J2405; J2704; J2710; J3010; J3490; J7030

== ENCOUNTER → 2022-03-17 12:48 | Outpatient (BNVA) | payer OTHER, SELFPAY | PROVIDERS: PCP Family Medicine; Visit Provider Physician Assistant | DX: S22.000D Wedge compression fracture of unspecified thoracic vertebra, subsequent encounter for fracture with routine healing (principal); X58.XXXD Exposure to other specified factors, subsequent encounter | CPT/HCPCS: 99024; 99213 ==

== ENCOUNTER → 2022-04-28 15:08 | Outpatient (BNVA) | payer OTHER, SELFPAY | PROVIDERS: PCP Family Medicine; Visit Provider Physician Assistant | DX: S22.000D Wedge compression fracture of unspecified thoracic vertebra, subsequent encounter for fracture with routine healing (principal); X58.XXXD Exposure to other specified factors, subsequent encounter | CPT/HCPCS: 72070; 99213 ==

== ENCOUNTER 2022-07-19 15:08 | Outpatient (CLI) | payer OTHER, SELFPAY ==
--- NOTE | 2022-07-19 | MR_ITS ---
WS: [id number] MRI THORACIC SPINE noncontrast. HISTORY: KYPHOPLASTY W INCREASED PAIN COMPARISON: Prior MRI thoracic spine 02/08/2022, thoracic spine radiograph 04/28/2022 TECHNIQUE: Multiplanar sequences are performed in sagittal and axial planes. Patient is status post T5 kyphoplasty. Very slight progression in the anterior wedging of the T5 vert ebral body which has undergone a kyphoplasty. Retropulsion of the posterior mid T5 vertebral body by 3 mm which is unchanged. There is no cord contact. Stable minimal anterior compression of T3. No new fractures are identified. There is no signal abnormality within the cord. Facet joint arthritis beginning at T7-8 through T11-12. No high-grade central or foraminal stenosis. MR/MR thoracic spin wo con* [id number] IMPRESSION: 1. Very minimal progression of the T5 compression fracture which has undergone kyphoplasty. Progression is minimal new since 02/08/2022. 2. Stable 2 mm retropulsion is unchanged. 3. No cord contact or stenosis. 4. Minimal anterior wedging of T3 is stable.
== END 2022-07-19 15:09 | disposition home or self-care (01) ==
LOC: RAD 15:08
PROVIDERS: PCP Family Medicine; Visit Provider Physician Assistant
DX: S22.059A Unspecified fracture of T5-T6 vertebra, initial encounter for closed fracture (principal); X58.XXXA Exposure to other specified factors, initial encounter
CPT/HCPCS: 72146

== ENCOUNTER → 2022-08-11 14:52 | Outpatient (BNVA) | payer OTHER, SELFPAY | PROVIDERS: PCP Family Medicine; Visit Provider Physician Assistant | DX: M54.9 Dorsalgia, unspecified (principal); G89.29 Other chronic pain | CPT/HCPCS: 99213 ==

== ENCOUNTER 2022-10-04 02:06 | Emergency (ER) | payer OTHER, SELFPAY ==
[2022-10-04] VITALS (7 sets, daily range): BP systolic 132–203; BP diastolic 74–135; PULSE 98–145; RESP 18–40; TEMP 36.6; O2SAT 93–99; BMI 19.0
--- NOTE | 2022-10-04 02:11 | XRR_ITS ---
PROCEDURE INFORMATION: Exam: XR Chest Exam date and time: 10/04/2022 2:21 AM Age: 72 years old Clinical indication: Shortness of breath and tachypnea; Patient HX: SOB with tachypnea. History of copd. TECHNIQUE: Imaging protocol: Radiologic exam of the chest. Views: 1 view. COMPARISON: CR XR chest 1V portable [id number] 01/04/2021 12:10 PM FINDINGS: Lungs: No consolidation. Possible RUL nodule measures 2.3 cm. Pleural spaces: Unremarkable. No pleural effusion. No pneumothorax. Heart/Mediastinum: Unremarkable. No cardiomegaly. Vasculature: Advanced diffuse vascular calcification noted. Partially assessed abdominal aortic endograft stent. Bones/joints: Unremarkable. XR/XR chest 1V portable [id number] IMPRESSION: 1. Probable new RUL 2.[address] chest pending. 2. Advanced COPD. No focal pneumonia.
--- NOTE | 2022-10-04 02:11 | ECG_ITS ---
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 Measurements Intervals [place] Rate: 123 P: 80 KS: 171 QRS: 84 QRSD: 105 T: 74 QT: 295 QTc: 423 Interpretive Statements SINUS TACHYCARDIA WITH FREQUENT SUPRAVENTRICULAR PREMATURE COMPLEXES ABNORMAL RHYTHM ECG Compared to ECG 01/04/2021 13:58:28 Sinus rhythm no longer present Electronically Signed On 10-05-2022 14:07:17 [employer] by Antoinette Kim M.D. [email or web address]
--- NOTE | 2022-10-04 02:12 | ED_ITS ---
HPI - SOB/Dyspnea General: Chief Complaint: Shortness of Breath/Dyspnea Stated Complaint: SOB Time Seen by Provider: 10/04/22 02:07 Source: patient and EMS Mode of arrival: EMS Limitations: no limitations History of Present Illness: HPI Narrative: 72-year-old male has a history of COPD states on bed tonight he became very short of breath states he felt very anxious pain medicine they arrived he was very tachypneic they did academic coach him and his breathing had improved he is curre ntly 94% on room air he denies any cough denies any fever denies any pain anywhere. He is tachypneic and tachycardic Associated symptoms: Deny abdominal pain, chest pain, fever(s), nausea or vomiting Review of Systems 2 Const: Denies: fever(s), chills, body aches or change in appetite Eyes: Denies: blurry vision or eye discomfort ENMT: Denies: throat pain or dental pain Card: Denies: chest pain Resp: Reports: dyspnea GI: Denies: abdominal pain, nausea, vomiting or diarrhea : Denies: dysuria Musc: Denies: neck pain or back pain Skin/Breast: Denies: rash Neuro: Denies: headache(s) Psych: Denies: depression Raj/Lymph: Denies: easy bruising All/Imm: Denies: urticaria PFSH ED PFSH: Medical History COPD (chronic obstructive pulmonary disease) Dyslipidemia GERD (gastroesophageal reflux disease) HTN (hypertension), benign PAD (peripheral artery disease) Surgical History H/O circumcision H/O colonoscopy 2014 H/O esophagogastroduodenoscopy History of hip surgery S/P AAA (abdominal aortic aneurysm) repair Family History Other CAD (coronary artery disease) Cancer Diabetes Hypertension Stroke Denies family history of Anesthesia complication Bleeding disorder Social History Smoking and tobacco status: former smoker Alcohol intake: never Household members: significant other Marital status: Single Current occupational status: retired Physical Exam Const: COMMON NORMALS: patient oriented x3 GENERAL APPEARANCE: anxious HENMT: COMMON NORMALS: normocephalic and atraumatic HEAD & SCALP: normocephalic and atraumatic Eye: COMMON NORMALS: Equal, round and reactive pupils present and EOMs intact bilaterally PUPIL: Yes Equal, round and reactive pupils present Neck/C-Spine: COMMON NORMALS: full ROM and supple Chest: COMMONS NORMALS: normal inspection of the chest and normal palpation of entire chest wall Resp: COMMON NORMALS: No retractions, No use of accessory muscles and clear to auscultation bilaterally EFFORT & INSPECTION: Yes tachypneic AUSCULTATION: clear to auscultation bilaterally Cardio: COMMON NORMALS: regular rhythm and No murmurs present (Cardio) RATE: tachycardic RHYTHM: regular rhythm GI: COMMON NORMALS: Normal to inspection, nondistended, normoactive bowel sounds present, Soft to palpation, non-tender and no masses PALPATION: Yes Soft to palpation Extremity: COMMON NORMALS: normal to inspection and full ROM Neuro: COMMON NORMALS: patient oriented x3, moves all extremities and no focal motor deficits Psych: COMMON NORMALS: mental status grossly normal, Normal thought process present and cooperative THOUGHT PROCESS: Normal thought process present Skin: COMMON NORMALS: no rashes or lesions noted and no wounds GENERAL SKIN EXAM: no rashes or lesions noted Course Vital Signs: Vital signs: Vital Signs Temperature 97.8 F 10/04/22 02:07 Pulse Rate 98 10/04/22 03:25 Respiratory Rate 26 H 10/04/22 03:25 Blood Pressure 143/82 10/04/22 03:25 Pulse Oximetry 97 10/04/22 03:25 Oxygen Delivery Me thod 10/04/22 03:25 Oxygen Flow Rate 2 10/04/22 02:45 MDM - SOB/Dyspnea Medical Decision Making Patient presents with dyspnea he appears to be having anxiety attack he is much improved here after Ativan and once his pain was under control he had no chest pain he has chronic back pain x-ray appeared to have a mass CT does confirm this patient already has a laboratory chemist he is to follow-up with them in [place] as soon as possible he is currently 97% on room air his heart rate is improved as well he is stable for discharge he is to follow-up with his laboratory chemist and return if worsening. Lab Data 10/04/22 02:20 10/04/22 02:20 Labs/Radiology: Radiology Impressions Chest X-Ray 10/04/22 02:11 IMPRESSION: 1. Probable new RUL 2.[address] chest pending. 2. Advanced COPD. No focal pneumonia. Chest CTA 10/04/22 02:27 IMPRESSION: 1. Concerning RUL 2.4 cm nodule, malignancy likely. Recommend PET-CT or biopsy. 2. Severe underlying emphysema with COPD. 3. Right hilar nonspecific 1.5 cm lymph node should be appropriately followed up in conjunction with the RUL nodule. 4. Other findings above. COMMENTS: In the absence of a history or active diagnosis of lung cancer, it is recommended that this patient with emphysema be evaluated for enrollment in a low dose CT lung cancer screening program. Laboratory Results WBC 19.8 10^3/uL (4.0-10.0) H 10/04/22 02:20 RBC 5.26 10^6/uL (4.1-5.3) 10/04/22 02:20 Hgb 16.8 g/dL (11.7-16.6) H 10/04/22 02:20 Hct 48.6 % (42.0-52.0) 10/04/22 02:20 MCV 92.4 fl (80-94) 10/04/22 02:20 MCH 31.9 pg (28.0-34.0) 10/04/22 02:20 MCHC 34.6 g/dL (30.0-36.0) 10/04/22 02:20 RDW 11.4 % (12.1-15.1) L 10/04/22 02:20 Plt Count 311 10^3/cmm (130-400) 10/04/22 02:20 MPV 9.0 fL (7.4-10.4) 10/04/22 02:20 Neut % (Auto) 75.8 % 10/04/22 02:20 Lymph % (Auto) 17.2 % 10/04/22 02:20 [place] % (Auto) 5.4 % 10/04/22 02:20 Eos % (Auto) 0.6 % 10/04/22 02:20 Baso % (Auto) 0.6 % 10/04/22 02:20 Neut # (Auto) 14.99 10^3/uL (1.8-7.7) H 10/04/22 02:20 Lymph # (Auto) 3.4 10^3/uL (0.8-4.8) 10/04/22 02:20 [place] # (Auto) 1.1 10^3/uL (0.2-0.9) H 10/04/22 02:20 Eos # (Auto) 0.1 10^3/uL (0.0-0.8) 10/04/22 02:20 Baso # (Auto) 0.1 10^3/uL (0.0-0.1) 10/04/22 02:20 Nucleated RBC % (auto) 0 % 10/04/22 02:20 Nucleated RBCs # 0.0 /100WBC 10/04/22 02:20 PT 12.70 SECONDS (12.1-14.9) 10/04/22 02:20 INR 0.93 (0.8-1.2) 10/04/22 02:20 Specimen Type Arterial 10/04/22 02:34 Sample Site Radial, right 10/04/22 02:34 ABG pH 7.41 (7.35-7.45) 10/04/22 02:34 ABG pCO2 50.0 mmHg (35-45) H 10/04/22 02:34 ABG pO2 85.9 mmHg (80.0-100.0) 10/04/22 02:34 ABG HCO3 31.8 mmol/L (22-26) H 10/04/22 02:34 ABG Base Excess 5.6 mmol/L (-2.0-2.0) H 10/04/22 02:34 William Test Pos 10/04/22 02:34 Hematocrit 51.5 % (42-52) 10/04/22 02:34 Hgb O2 Saturation 95.8 % (95-100) 10/04/22 02:34 Carboxyhemoglobin 1.4 %THgb (0.4-20.1) 10/04/22 02:34 Methemoglobin 0.4 % (0.4-1.5) 10/04/22 02:34 Total Hemoglobin 16.8 g/dL (14-18) 10/04/22 02:34 O2 Delivery Device Nc 10/04/22 02:34 O2 Liters/Min 2.0 % 10/04/22 02:34 Control Panel Assembler ID Venancio 10/04/22 02:34 Sodium 144 mmol/L (136-145) 10/04/22 02:20 Potassium 4.1 mmol/L (3.5-5.1) 10/04/22 02:20 Chloride 102 mmol/L (98-107) 10/04/22 02:20 Carbon Dioxide 31 mmol/L (22-29) H 10/04/22 02:20 Anion Gap 15.1 (5-19) 10/04/22 02:20 BUN 9 mg/dL (8-23) 10/04/22 02:20 Creatinine 0.9 mg/dL (0.7-1.2) 10/04/22 02:20 GFR Calculation Not Reportable 10/04/22 02:20 Glucose 92 mg/dL (65-115) 10/04/22 02:20 Calculated Osmolality 296 mOsm/kg (285-295) H 10/04/22 02:20 Calcium 10.0 mg/dL (8.5-10.5) 10/04/22 02:20 Total Bilirubin 0.2 mg/dL (0.15-1.2) 10/04/22 02:20 AST 23 U/L (0-40) 10/04/22 02:20 ALT 25 U/L (0-41) 10/04/22 02:20 Alkaline Phosphatase 66 U/L (40-130) 10/04/22 02:20 NT-Pro-B Natriuret Pep 96 pg/mL (0-125) 10/04/22 02:20 Total Protein 6.8 g/dL (6.6-8.7) 10/04/22 02:20 Albumin 4.3 g/dL (3.5-5.2) 10/04/22 02:20 Globulin 2.5 g/dL (1.3-4.6) 10/04/22 02:20 Influenza Type A Ag negative (Negative) 10/04/22 02:20 Influenza Type B Ag negative (Negative) 10/04/22 02:20 SARS-CoV-2 Ag (Rapid) negative (Negative) 10/04/22 02:20 EKG Data EKG 1: I personally reviewed and interpreted this EKG as follows: EKG Interpretation Date: 10/04/22 EKG interpretation time: 02:16 Interpretation: sinus tach hr [address] or t wave abnormalities qrs 105 qtc 368 Discharge Plan Discharge Patient Disposition: Home Clinical Impression: Dyspnea, Anxiety, Lung mass Condition: Stable Prescriptions: New hydrocodone-acetaminophen 5-325 mg tablet 1 tab PO Q6H PRN (Reason: pain) Qty: 14 0RF No Action albuterol sulfate 2.5 mg /3 mL (0.083 %) solution for nebulization 2.5 mg inhalation Q6H PRN (Reason: Dyspnea) amlodipine 5 mg tablet 5 mg PO DAILY budesonide-formoterol [Symbicort] 160-4.5 mcg/actuation HFA aerosol inhaler 2 puff inhalation Q12H cholecalciferol (vitamin D3) 50 mcg (2,000 unit) capsule 50 mcg PO DAILY multivitamin Tablet 1 tab PO DAILY rosuvastatin 20 mg tablet 10 mg PO DAILY Spiriva Respimat 2.5 mcg/actuation mist 2 inh inhalation QAM hydrocodone-acetaminophen 5-325 mg tablet 1 tab PO Q4H PRN (Reason: pain) 7 Days Qty: 10 0RF tramadol 50 mg tablet 50 mg PO .q4-6hr PRN (Reason: pain) Qty: 40 0RF omeprazole 20 mg Tablet,Delayed Release (Dr/Ec) 20 mg PO DAILY bee pollen 1,000 mg Tablet,Chewable 1,000 mg PO BID prednisone 50 mg Tablet 50 mg PO DAILY hydrocodone-acetaminophen 5-325 mg tablet 1 - 2 tab PO .Q4-6H Qty: 40 0RF Discharge Orders: Discharge ED (Routine); Ordered 10/04/22 Ordered By: Rita Pino Referrals: Ruthy Piña MD [Primary Care Provider] - 1-3 days Discharge Diet: Advance as tolerated Discharge Activity: Resume usual activity Patient Instructions: Dyspnea (ED) Coding Level of Care Code ED Sample Distributor for Brandy Reece
[2022-10-04] MEDS: LORazepam 2 mg/mL INJ 1 mL 1 MG IVP (02:21)
[2022-10-04 02:23] LABS: Basophils # 0.1 10^3/uL (0.0-0.1); Basophils % 0.6 %; Eosinophils # 0.1 10^3/uL (0.0-0.8); Eosinophils % 0.6 %; Hematocrit 48.6 % (42.0-52.0); Hemoglobin 16.8 g/dL (11.7-16.6); Lymphocytes # 3.4 10^3/uL (0.8-4.8); Lymphocytes % 17.2 %; Mean Corpuscular HGB Conc 34.6 g/dL (30.0-36.0); Mean Corpuscular Hemoglobin 31.9 pg (28.0-34.0); Mean Corpuscular Volume 92.4 fl (80-94); Monocytes # 1.1 10^3/uL (0.2-0.9); Monocytes % 5.4 %; Neutrophils # 14.99 10^3/uL (1.8-7.7); Neutrophils % 75.8 %; Nucleated Red Blood Cells % 0 %; Platelet Count 311 10^3/cmm (130-400); Red Blood Count 5.26 10^6/uL (4.1-5.3); Red Cell Distribution Width 11.4 % (12.1-15.1); White Blood Count 19.8 10^3/uL (4.0-10.0)
[2022-10-04] MEDS: hyDRALAzine 20 mg/mL INJ 1 mL 10 MG IVP (02:24)
--- NOTE | 2022-10-04 02:27 | CTR_ITS ---
PROCEDURE INFORMATION: Exam: CTA Chest With Contrast Exam date and time: 10/04/2022 2:59 AM Age: 72 years old Clinical indication: Abnormal findings; Abnormal radiologic exam of lung or chest; Shortness of breath and tachypnea; Prior surgery; Surgery type: Aaa endograft; Patient HX: SOB with tachypnea. RT lung mass on cxr. ; Additional info: Mass/sob TECHNIQUE: Imaging protocol: Computed tomographic angiography of the chest with contrast. 3D rendering (Not supervised by radiologist): MIP and/or 3D reconstructed images were created by the technologist. Radiation optimization: All CT scans at this facility use at least one of these dose optimization techniques: automated exposure control; mA and/or kV adjustment per patient size (includes targeted exams where dose is matched to clinical indication); or iterative reconstruction. Contrast material: OMNI 350; Contrast volume: 56 ml; Contrast route: INTRAVENOUS (IV); REPORTING DATA: Count of CT and Cardiac NM exams in prior 12 months: This patient has received 0 known CTs and 0 known cardiac nuclear medicine studies in the 12 months prior to the current study. COMPARISON: CR (CHEST, ) 10/04/2022 2:21 AM RADIATION DOSE METRICS: Total DLP (mGy-cm): 206.37 FINDINGS: Pulmonary arteries: No main, lobar, or segmental PE identified. Aorta: Thoracic arch measures up to 2.9 cm. Other arteries: Partially assessed abdominal aortic endograft stent. Advanced diffuse vascular calcification noted. Lungs: Severe underlying emphysema with COPD. The lower RUL contains a concerning nodule measuring about 2.4 cm. No consolidation. Mild areas of bilateral mid to lower lung atelectasis or scarring. Pleural spaces: No pneumothorax or pleural effusion. Heart: The heart is not enlarged. No pericardial effusion is noted. Lymph nodes: No bulky hilar or mediastinal lymphadenopathy noted. A right hilar 1.5 cm node is present. Bones/joints: Diffuse osteopenia. Upper thoracic kyphoplasty. Upper thoracic old-appearing myqy-so-xskotbse compression. Advise correlation. Soft tissues: Unremarkable. CT/CT angio chest PE protcl [id number] IMPRESSION: 1. Concerning RUL 2.4 cm nodule, malignancy likely. Recommend PET-CT or biopsy. 2. Severe underlying emphysema with COPD. 3. Right hilar nonspecific 1.5 cm lymph node should be appropriately followed up in conjunction with the RUL nodule. 4. Other findings above. COMMENTS: In the absence of a history or active diagnosis of lung cancer, it is recommended that this patient with emphysema be evaluated for enrollment in a low dose CT lung cancer screening program.
[2022-10-04] MEDS: albuterol 2.5 mg/3 mL Neb INHALATION (02:32)
[2022-10-04 02:38] LABS: INR 0.93 (0.8-1.2)
[2022-10-04] MEDS: ondansetron 2 mg/ML SDV 2 mL 4 MG IVP (02:40)
[2022-10-04] MEDS: morphine 4 mg/mL SDV 1 mL IVP (02:41)
[2022-10-04 02:42] LABS: Influenza A by IFA negative (Negative); Influenza B by IFA negative (Negative)
[2022-10-04 02:47] LABS: ABG PH Result 7.41 (7.35-7.45); Arterial Blood Gas Hematocrit 51.5 % (42-52); Base Excess ABG 5.6 mmol/L (-2.0-2.0); Blood Gas Allen Test Pos; Blood Gas Sample Site Radial, right; Blood Gas Sample Type Arterial; Carboxyhemoglobin 1.4 %THgb (0.4-20.1); HCO3 ABG 31.8 mmol/L (22-26); HGB O2 Sat 95.8 % (95-100); Methemoglobin 0.4 % (0.4-1.5); Oxygen Device NC; PO2 ABG 85.9 mmHg (80.0-100.0); Total Hemoglobin 16.8 g/dL (14-18)
[2022-10-04 02:48] LABS: Alanine Aminotransferase 25 U/L (0-41); Albumin Level 4.3 g/dL (3.5-5.2); Alkaline Phosphatase 66 U/L (40-130); Anion Gap 15.1 (5-19); Aspartate Amino Transferase 23 U/L (0-40); Blood Urea Nitrogen 9 mg/dL (8-23); Carbon Dioxide 31 mmol/L (22-29); Chloride 102 mmol/L (98-107); Globulin 2.5 g/dL (1.3-4.6); Glucose 92 mg/dL (65-115); NT Pro B Type Natriuretic Pept 96 pg/mL (0-125); Osmolality Calculated 296 mOsm/kg (285-295); Potassium 4.1 mmol/L (3.5-5.1); Sodium 144 mmol/L (136-145); Total Bilirubin 0.2 mg/dL (0.15-1.2); Total Protein 6.8 g/dL (6.6-8.7)
[2022-10-04] MEDS: labetalol 5 mg/mL SDV 20mL 10 MG IVP (02:49)
[2022-10-04] MEDS: iohexol 350 mg/mL 500 mL Btl (per mL) IV (03:10)
[2022-10-04 03:21] LABS: SARS Covid-2 Antigen negative (Negative)
== END 2022-10-04 04:16 | disposition home or self-care (01) ==
PROVIDERS: Emergency Provider Emergency Medicine; PCP Family Medicine
DX: R06.00 Dyspnea, unspecified (principal); F41.9 Anxiety disorder, unspecified; R91.8 Other nonspecific abnormal finding of lung field; Z20.822 Contact with and (suspected) exposure to COVID-19; Z87.891 Personal history of nicotine dependence; J44.9 Chronic obstructive pulmonary disease, unspecified; E78.5 Hyperlipidemia, unspecified; I10 Essential (primary) hypertension
CPT/HCPCS: 36600; 71045; 71275; 80053; 82805; 83880; 85025; 85610; 87426; 87804; 93005; 94640; 96374; 96375; 99285; J0360; J2060; J2270; J2405; J2930; J3490; J7613; Q9967

== ENCOUNTER 2022-10-22 05:37 | Outpatient (CLI) | payer OTHER, SELFPAY ==
--- NOTE | 2022-10-22 | PETR_ITS ---
PROCEDURE INFORMATION: Exam: PET/CT Skull Base to Mid-thigh Exam date and time: 10/22/2022 9:03 AM Age: 72 years old Clinical indication: Abnormal findings; Right hilar nonspecific 1.5 cm lymph node should be appropriately. Followed up in conjunction with the rul nodule. Prior surgery; Surgery type: --aortic endograft. ; Additional info: Abnormal findings of lung field LABS AND CLINICAL REPORTS: Glucose: 90 mg/dl Treatment strategy for malignancy (PET staging): Initial Staging (PI) TECHNIQUE: Imaging protocol: Following at least four-hour fasting and following the injection of F-18-FDG, low dose CT images were obtained. Then, PET images were obtained. Attenuation corrected images were constructed using the CT scan. Fused images of PET and CT were reviewed. The standardized uptake values (SUV) reported below are maximum values within a region of interest, expressed in gm/ml. Exam includes orbital meatal line to mid-thigh. Radiopharmaceutical: 14.8 mCi F-18 FDG (Fluorodeoxyglucose), IV. Time of imaging post radiopharmaceutical administration: 1 hour Injection site: Right antecubital COMPARISON: CT angio chest PE protcl [id number] 10/04/2022 2:59 AM FINDINGS: Brain: Visualized brain has normal physiologic uptake. Pharynx: No abnormal uptake. Larynx: No abnormal uptake. Lungs, pleura and trachea: A right upper lobe solid soft tissue density noncalcified nodule with spiculated margins measuring approximately 2.8 x 2.0 cm on series 3, image 60 is noted, SUV max 16.2. Bilateral centrilobular emphysematous changes are moderate. Heart: Normal physiologic uptake. Mediastinal space: No abnormal uptake. Liver: No abnormal uptake. Gallbladder and bile ducts: No abnormal uptake. Pancreas: No abnormal uptake. Spleen: No abnormal uptake. Adrenal glands: No abnormal uptake. Kidneys and ureters: Normal physiologic uptake. Stomach and bowel: No abnormal uptake. Urinary bladder: There is focal uptake in the urethra slightly inferior to the prostate gland, SUV max 5.2 likely representing excreted radiotracer. Vasculature: No abnormal uptake. Diffuse atherosclerotic changes are noted including within the coronary arteries. 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 A proximal abdominal aortic stent graft is noted with additional stent limbs involving the common iliac arteries. Lymph nodes: A right hilar lymph node measuring 1 cm on series 3, image 63 is noted, SUV max 5.0. Bones/joints: No abnormal uptake in the visualized axial and appendicular skeleton. Benign-appearing lobulation of the anterior right iliac bone is noted likely related to prior trauma. Vertebroplasty cement in the T5 vertebral body is noted. Soft tissues: No abnormal uptake in the visualized head, neck, chest, abdomen, pelvis, and extremities. METRICS: Mediastinal blood pool: SUV max 2.1 PET[facility] [id number] IMPRESSION: 1. A right upper lobe nodule demonstrates elevated uptake (SUV max 16.2) concerning for malignancy. 2. A 1 cm right hilar lymph node demonstrates elevated uptake (SUV max 5.0) concerning for metastasis. 3. Additional nonurgent findings as detailed above.
== END 2022-10-22 05:38 | disposition home or self-care (01) ==
LOC: RAD 10-24 05:37
PROVIDERS: PCP Family Medicine; Visit Provider Family Medicine
DX: R91.8 Other nonspecific abnormal finding of lung field (principal)
CPT/HCPCS: 78815; A9552

== ENCOUNTER 2022-11-11 13:34 | Outpatient (CLI) | payer OTHER, SELFPAY ==
--- NOTE | 2022-11-11 16:00 | CT_ITS ---
WS: [id number] CT chest ION (PULM ONLY) [id number] HISTORY: PULMONARY Nodule TECHNIQUE: Axial imaging performed through the thorax. All CT scans at [facility] use at least one of these dose optimization techniques: automated exposure control; mA and/or kV adjustment per p atient size (includes targeted exams where dose is matched to clinical indication); or iterative jaycee nstruction. CONTRAST: None. DLP: 183.07 mGy-cm. COMPARISON: 10/04/2022 Lungs and central airway: Marked pulmonary hyperexpansion with emphysema. Recently described RIGHT up per lobe neoplasm has increased in size since 10/04/2022. Mass now measures 3.5 x 2.2 cm. Spiculated m ass with tethering extending towards the pleura. No pneumothorax or pleural effusion. Atherosclerosis aorta. No adenopathy. Endovascular graft seen within the abdominal aorta. CT/CT chest ION (PULM ONLY) [id number] IMPRESSION: 1. RIGHT upper lobe mass measures 3.5 x 2.2 cm. Pulmonary mass has increased i n size since 10/04/2022. 2. Marked chronic emphysema.
== END 2022-11-11 13:35 | disposition home or self-care (01) ==
LOC: RAD 13:35
PROVIDERS: PCP Family Medicine; Visit Provider Internal Medicine Pulmonary Disease
DX: R91.8 Other nonspecific abnormal finding of lung field (principal); J43.9 Emphysema, unspecified; Z87.891 Personal history of nicotine dependence; M54.9 Dorsalgia, unspecified
CPT/HCPCS: 71250; 99204

== ENCOUNTER 2022-11-15 05:33 | Day surgery (SDC) | payer OTHER, SELFPAY ==
[2022-11-15] VITALS (14 sets, daily range): BP systolic 127–168; BP diastolic 74–92; PULSE 71–95; RESP 16–20; TEMP 36.1–36.6; O2SAT 91–100
[2022-11-15] MEDS: sodium chloride 0.9% 1,000 ML 30 ML IV (06:01)
--- NOTE | 2022-11-15 06:53 | ANES.PREANE2 ---
Pre-Anesthetic Assessment Height/Weight: Height 1.83 m Weight 54.431 kg Temp Pulse Resp BP Pulse Ox O2 Del Method 97.9 F 75 20 H 157/92 97 11/15/22 05:55 11/15/22 05:55 11/15/22 05:55 11/15/22 05:55 11/15/22 05:55 11/15/22 05:55 Preop Diagnosis: Compression fracture thoracic 3 and 5 Operation Date: 11/15/22 07:00 Proposed Procedures p ION Bronch with EBUS, 27747, 12408, 28726, 55960, 27790, 76914, 80290, 03490, 36837, 96214, 41780, 29515, 07702,R91.8(Not Applicable) - Celso Justin MD s Ebus(Not Applicable) - Celso Justin MD Familial anesthetic complications: None Was Beta Kami taken within 24 hours: N/A Was Clonidine taken within 24 hours: N/A Last intake: Intake Last Liquid Date 11/14/22 Last Liquid Time 22:00 Last Solid Date 11/14/22 Last Solid Time 19:30 Social No alcohol and No tobacco Exam alert, oriented x 3, clear to auscultation bilaterally and regular rate & rhythm Airway Mallampati: Class II Dentition: other (none) CV/HEM Hypertension GI Gastroesophageal Reflux Disease Metabolic Hyperlipidemia Anesthetic Plan ASA status: 3 Anesthesia: General Risk of > 500 ml blood loss (7ml/kg in children): No Medications/Allergies Home Medications Medication Instructions Recorded Confirmed Last Taken Type albuterol sulfate 2.5 mg/3 mL 2.5 mg inhalation Q6H PRN Dyspnea 07/07/20 11/11/22 11/14/22 History (0.083 %) solution for nebulization amlodipine 5 mg tablet 5 mg PO DAILY 07/07/20 11/11/22 11/15/22 04:30 History cholecalciferol (vitamin D3) 50 50 mcg PO DAILY 07/07/20 11/11/22 11/14/22 History mcg (2,000 unit) capsule multivitamin 1 tab PO DAILY 07/07/20 11/11/22 11/14/22 History rosuvastatin 20 mg tablet 10 mg PO DAILY 07/07/20 11/11/22 11/14/22 History bee pollen 1,000 mg chewable tablet 1,000 mg PO BID 08/21/20 11/11/22 11/14/22 History omeprazole 20 mg tablet,delayed 20 mg PO DAILY 08/21/20 11/11/22 11/11/22 History release tramadol 50 mg tablet 50 mg PO .q4-6hr PRN pain #40 tabs 07/03/22 11/11/22 11/13/22 Rx azithromycin 250 mg tablet 250 mg PO .3 times weekly 11/11/22 11/11/22 11/14/22 History budesonide 160 mcg-glycopyr 9 2 inh inhalation BID #10.7 grams 11/11/22 11/11/22 11/14/22 Rx mcg-formot 4.8 mcg/actuation HFA inhaler (Breztri Aerosphere) lidocaine 5 % topical patch 1 patch topical DAILY PRN Pain 11/11/22 11/11/22 11/13/22 History prednisone 10 mg tablet 10 mg PO DAILY 11/11/22 11/11/22 11/14/22 History Allergies Allergy/AdvReac Type Severity Reaction Status Date / Time adhesive Allergy ALGY-Rash Verified 11/15/22 05:49 tetracycline AdvReac ADR-Halluci Verified 11/11/22 13:46 nating Current Medications Generic Name Dose Route Start Last Admin Trade Name Freq PRN Reason Stop Dose Admin Sodium Chloride 1,000 mls @ 30 mls/hr 11/15/22 05:45 11/15/22 06:01 Sodium Chloride 0.9% IV 11/16/22 05:44 30 mls/hr .Q24H DAVIS Administration PFSH Anesthesia Medical History COPD (chronic obstructive pulmonary disease) Dyslipidemia GERD (gastroesophageal reflux disease) HTN (hypertension), benign PAD (peripheral artery disease) Surgical History H/O circumcision H/O colonoscopy 2014 H/O esophagogastroduodenoscopy History of hip surgery S/P AAA (abdominal aortic aneurysm) repair Family History Other CAD (coronary artery disease) Cancer Diabetes Hypertension Stroke Denies family history of Anesthesia complication Bleeding disorder Social History Smoking and tobacco status: former smoker Quit status (tobacco): has quit using tobacco Year quit tobacco: 2020 Former quit date comment: 1.5 ppd X 54 years, Alcohol intake: never Household members: significant other Marital status: Single Current occupational status: retired Data Anesthesia Cardiac Studies: No Data to Display
--- NOTE | 2022-11-15 07:10 | W.PM.OPSUD ---
Surgery/Procedure H&P Update DATE OF PROCEDURE: November 15, 2022 DATE H&P PERFORMED: 11/11/22 CHANGES TO PREVIOUS DOCUMENTATION: None PREOP DIAGNOSIS: Right upper lobe nodule suspicious for malignancy PRIMARY INDICATION FOR PROCEDURE: PET positive right upper lobe nodule and right hilar lymph node PLANNED PROCEDURE: Operation Date: 11/15/22 07:00 Proposed Procedures p ION Bronch with EBUS, 15203, 63599, 14861, 88149, 14904, 43953, 08511, 60634, 49894, 99127, 45640, 38657, 95415,R91.8(Not Applicable) - Celso Justin MD s Ebus(Not Applicable) - Celso Justin MD
--- NOTE | 2022-11-15 07:25 | SC_ITS ---
WS: [id number] EXAMINATION: C-arm FL for Bronchoscopy REASON FOR EXAM: ion COMPARISON: None available. ORDER DATE: 11/15/2022 7:25 AM FINDINGS: Single AP projection demonstrates the pulmonary nodule in the lower aspect of the field of view in th e right upper lobe. Endotracheal tube in place. SC/C-arm FL for Bronchoscopy IMPRESSION: Study obtained during bronchoscopy. Total fluoroscopy time 284.7 seconds
[2022-11-15] MEDS: lidocaine 1% INJ 10 mL (per mL) XX (07:30)
[2022-11-15 08:22] LABS: Apprearance, Bronch Wash Bloody (CLEAR); Bronch Source Right Upper Lobe; Color, Bronc Wash Red; Cyto Order Verification Order Verified
--- NOTE | 2022-11-15 08:45 | P.OP_ITS ---
Operative Report Date of procedure: November 15, 2022 Pre-op diagnosis: Preop Diagnosis Right upper lobe nodule suspicious for malignancy Post-op diagnosis: Possible malignancy Procedure done: 12382? ? Dx Bronchoscope w/Washings or airway inspection 73613? ? Dx Bronchoscope w/BAL 94955? ? Bronch with computer image guided Navigational Bronchoscopy 81678? ? Bronchoscopy w/Transbronchial lung biopsy(s), single lobe 54740? ? Bronchoscopy w/Transbronchial needle aspiration biopsy(s), tracheal, main stem, and/or lobar bronchus 10127? ? Bronchoscopy w/ therapeutic aspiration of the tracheobronchial tree (clearance of airway secretions, removal of mucus plugs) 95311? ? EBUS Sampling 1/2 nodes 30999? ? EBUS Diag or Interven Peripheral lesion (radial EBUS) Surgeon: Celso Justin MD, [facility] Brief History: Mr. Karan Torres is a 72-year-old male with past medical history of COPD, dyslipidemia, GERD, hypertension, peripheral arterial disease, former smoker with hx of 1.5 ppd X 52 years, quit in 2019.? Was seen in ER for difficulty breathing.? Which resolved after coming to the ER.? Apparently has anxiety attack which improved after Ativan. He has chronic back pain for which an x-ray was performed which showed lung mass.? Subsequent CTA 10/04/2022 showed concerning RUL 2.4 cm nodule likely malignant.? Also there is right nonspecific 1.5 cm lymph node. Subsequent PET CT scan performed on 10/22/2022 showed RUL nodule with elevated up take SUV 16.2 concerning for malignancy.? 1 cm right hilar node demonstrates elevated uptake SUV max 5 concerning for metastasis. Today scheduled for Ion navigational bronchoscopy guided biopsies of right upper lobe lesion as well as endobronchial ultrasound-guided biopsies of hilar/mediastinal lymph nodes Procedure: 75977? ? Dx Bronchoscope w/Washings or airway inspection 76649? ? Dx Bronchoscope w/BAL 51598? ? Bronch with computer image guided Navigational Bronchoscopy 01172? ? Bronchoscopy w/Transbronchial lung biopsy(s), single lobe 12563? ? Bronchoscopy w/Transbronchial needle aspiration biopsy(s), tracheal, main stem, and/or lobar bronchus 63225? ? Bronchoscopy w/ therapeutic aspiration of the tracheobronchial tree (clearance of airway secretions, removal of mucus plugs) 58232? ? EBUS Sampling 1/ nodes 03381? ? EBUS Diag or Interven Peripheral lesion (radial EBUS) Description of the procedure: The procedure was explained to the patient and the consent was obtained.? The patient was brought to the OR.? Anesthesia: The patient underwent endotracheal intubation for general anesthesia. Local anesthesia: The distal trachea-Migue, right and left mainstem bronchi were anesthetized with 1% lidocaine, 3 mL. Following induction of general anesthesia, the flexible bronchoscope was advanced through the? ET tube.? The? lower trachea mucosa appeared normal, no endotracheal lesion was seen.? The migue was sharp. There were some mucus globs in the trachea which were suctioned right away.The migue, the right and l eft mainstem bronchi are anesthetized with 1% lidocaine.? There were some in a systematic manner bilateral bronchial tree was then examined. ? The bronchoscope was advanced into the left mainstem bronchus.? The mucosa appeared normal with no endobronchial lesions.? The left upper lobe, lingula and left lower lobe bronchi were examined up to the third subsegmental level and no abnormalities were identified.? Mucosa appeared normal with no endobronchial lesion, active bleeding or mucous plug.? There were some mucus secretions in lower lobe-which were suctioned right away.(15968) The bronchoscope was then introduced into the right mainstem bronchus.? The right upper lobe, right middle lobe and right lower lobe bronchi were examined up to the third subsegmental level and no abnormalities were identified.There were some mucus secretions in lower lobe-which were suctioned right away.(34947) After initial inspection as well as?airway clearance with flexible bronchoscope(05923),?ION robotic assisted navigational bronchoscope (25658)?was introduced-and right upper lobe lesion was accessed.? After?confirming the location with radial EBUS (72098),?under the fluoroscopy guidance? -we were able to obtain biopsies using fine-needle, forceps.? 1 pass with forceps and fine- needle were used for touch prep and sent for rapid onsite evaluation-pathology reported seeing highly suspicious cells for malignancy on forceps slides.? Targeting the same area, 3 additional passes were made with fine-needle and 3 passes were made with forceps and all the samples were placed in formalin for histopathology examination. Bronchoscope was wedged at the entrance of the anterior segment of anterior right upper lobe, 10 mL of saline was instilled and returned 6 mL of bronchoalveolar lavage (57438).? The fluid was mixed with blood and specks of tissue. There was some evidence of grade 2 bleeding-cold saline was instilled and after making sure there is no active bleeding, ION robotic assisted navigational bronchoscope was retracted and?introduced Endobronchial ultrasound EBUS(82134). ? With the help of EBUS, identified a lymph node at station 7.??Fine-needle aspiration biopsies? were performed from station 7, station 11 R (47269). Rapid onsite evaluation by pathology did not see any malignant cells. 3 passes at each station was placed in formalin for histopathology review. There was some evidence of bleeding-cold saline was instilled. ?After making sure there is no active bleeding EBUS was retracted and procedure terminated. ? Samples: Right upper lobe lesion 1.? Total of 4 passes were made?using needle aspiration(49044);?first pass used for touch prep - reported negative for malignancy; remaining 3 passes were placed in formalin for histopathology 2.? Targeting the same area 4 passes were?made using forceps (76336); first pass used for touch prep -pathology reported seeing suspicious cells for malignancy; remaining 3 passes were placed in formalin for histopathology 3. Bronchoscope was wedged at the entrance of the anterior segment of right upper lobe, 10 mL of saline was instilled and returned 6 mL of bronchoalveolar lavage (34691).? The fluid was mixed with blood and specks of tissue..samples for cell count, cytology. EBUS guided biopsies of 2 lymph nodes-station 7, station 11R (68838) 1.? Total of 3 passes were made?using needle aspiration(75081) from station 7; ?first pass used for touch prep -pathology reported seeing negative for malignancy;?remaining specimen were placed in formalin for histopathology 2.? Total of 3 passes were made?using needle aspiration(82155) from station 4R:? first pass used for touch prep -pathology reported seeing negative for malignancy;?remaining specimen were placed in formalin for histopathology Complications: None.The patient was extubated and brought to the PACU in stable condition. Postprocedure chest x-ray: No pneumothorax Disposition: Patient can be discharged home in stable condition. ? Pt, and his are aware that I am going to call them? to update final biopsy results once available.
--- NOTE | 2022-11-15 08:58 | XR_ITS ---
WS: [id number] EXAMINATION: XR chest 1V portable 00256 REASON FOR EXAM: Post right upper lobe biopsies COMPARISON: Previous studies ORDER DATE: 11/15/2022 9:00 AM TECHNIQUE: A single, portable frontal chest x-ray was obtained. X-RAY FINDINGS: There is an irregular 2 cm nodular opacity in the mid right upper lobe with some central lucency sugg estive of cavitation Pleural spaces are clear. No pleural effusions or pneumothorax. Cardiomediastinal silhouette is normal. No evidence for pulmonary edema. Soft tissue and osseous structures are unremarkable. No tubes or lines are present. XR/XR chest 1V portable 51643 IMPRESSION: Slightly irregular 2 cm opacity with possible central cavitation in the right u pper lobe No evidence of pneumothorax
[2022-11-15 10:36] LABS: PATH Referral Yes; Total Cells Counted Bronch 200
--- NOTE | 2022-11-15 12:47 | ANE.PACU2 ---
Inpatient post-anesthesia follow up: Airway intact: Yes Vital signs: Temperature 97.7 F Pulse Rate 71 Respiratory Rate 18 Blood Pressure 138/74 Pulse Oximetry 96 Oxygen Delivery Me thod Room Air Oxygen Flow Rate 2 Fraction of Inspir ed Oxygen Hydration adequate: Yes Nausea and vomiting: No Pain level: 1 Mental status: Baseline
[2022-11-21 11:38] LABS: PD-L1 (Clone 22C3) by IHC BBPL See Report
== END 2022-11-15 10:38 | disposition home or self-care (01) ==
PROVIDERS: PCP Family Medicine; Visit Provider Internal Medicine Pulmonary Disease
PROC: 0BJ08ZZ Inspection of Tracheobronchial Tree, Via Natural or Artificial Opening Endoscopic (ICD-10-PCS; CPT 31622; principal; 2022-11-15 07:00)
PROC: BB4BZZZ Ultrasonography of Pleura (ICD-10-PCS; 2022-11-15 07:00)
DX: C34.11 Malignant neoplasm of upper lobe, right bronchus or lung (principal); I10 Essential (primary) hypertension; K21.9 Gastro-esophageal reflux disease without esophagitis; E78.5 Hyperlipidemia, unspecified; Z79.52 Long term (current) use of systemic steroids; Z79.891 Long term (current) use of opiate analgesic; J44.9 Chronic obstructive pulmonary disease, unspecified; I73.9 Peripheral vascular disease, unspecified; Z87.891 Personal history of nicotine dependence; C77.1 Secondary and unspecified malignant neoplasm of intrathoracic lymph nodes
CPT/HCPCS: 31624; 31627; 31628; 31629; 31645; 31652; 31654; 71045; 76000; 80503; 88112; 88305; 88309; 88341; 88342; 89050; J0330; J1100; J2370; J2405; J2704; J2930; J3010; J3490; J7030

== ENCOUNTER 2022-11-25 09:55 | Oncology outpatient (recurring) (ONCR) | payer OTHER, SELFPAY | END 2022-12-04 23:59 | disposition home or self-care (01) | LOC: ONCMED 09:55 | PROVIDERS: PCP Family Medicine; Visit Provider Internal Medicine Medical Oncology | DX: C34.11 Malignant neoplasm of upper lobe, right bronchus or lung (principal); G89.3 Neoplasm related pain (acute) (chronic); Z79.891 Long term (current) use of opiate analgesic; Z87.891 Personal history of nicotine dependence | CPT/HCPCS: 99205 ==

== ENCOUNTER → 2022-11-30 12:49 | Outpatient (BNVA) | payer OTHER, SELFPAY | PROVIDERS: PCP Family Medicine; Visit Provider Surgery | DX: C34.11 Malignant neoplasm of upper lobe, right bronchus or lung (principal) | CPT/HCPCS: 99203 ==

== ENCOUNTER 2022-12-01 09:48 | Outpatient (CLI) | payer OTHER, SELFPAY ==
--- NOTE | 2022-12-01 10:15 | MR_ITS ---
WS: [id number] MRI BRAIN WITH AND WITHOUT CONTRAST HISTORY: Staging, history of lung cancer. Several falls. COMPARISON: None available. TECHNIQUE: Multiplanar imaging performed through the brain with MultiHance third ml's IV. Diffusion-weighted imaging is normal. There is extensive patchy and confluent white matter disease be ginning at the vertex and extending inferiorly surrounding the ventricles and through the white matte r. None of these areas enhance. Moderate bilateral small vessel disease in the eliza. No susceptibility artifacts or prior lacunar infarcts. Ventricles and extra-axial spaces are normal. Clivus and pituitary gland are normal. Motion artifact may interfere with detecting very small metastatic lesions. There are no lesions iden tified concerning for metastatic disease. There is a small venous angioma RIGHT frontal lobe. Dural venous sinuses are normal. Paranasal sinuses: Well aerated with no significant disease. Mastoid air cells: Normal. Calvarium and scalp: Normal. MR/MR head wo/w con 93036 IMPRESSION: 1. No evidence for metastatic disease to the brain. 2. Advanced, diffuse confluent and patchy small vessel ischemic disease. 3. Small vessel ischemic disease bilaterally in the eliza. 4. No significant atrophy. 5. Small RIGHT frontal lobe venous angioma.
[2022-12-01] MEDS: gadobenate dimeglumine 20 mL vial IV (11:28)
== END 2022-12-01 09:49 | disposition home or self-care (01) ==
LOC: RAD 09:53
PROVIDERS: PCP Family Medicine; Visit Provider Internal Medicine Medical Oncology
DX: C34.11 Malignant neoplasm of upper lobe, right bronchus or lung (principal)
CPT/HCPCS: 70553; A9577

== ENCOUNTER 2022-12-05 09:54 | Day surgery (SDC) | payer OTHER, SELFPAY ==
[2022-12-02 10:52] VITALS: BMI 19.2
[2022-12-05] VITALS (8 sets, daily range): BP systolic 109–136; BP diastolic 53–74; PULSE 69–80; RESP 18; TEMP 36.1–37.2; O2SAT 94–100
--- NOTE | 2022-12-05 10:00 | SC_ITS ---
WS: [id number] C-arm FL for CVA 44013 REASON FOR EXAM: Mediport placement FINDINGS: Chemotherapy infusion port over the left chest. Transvenous left internal jugular vein port catheter which extends into the SVC to just above the atrium. No pneumothorax identified. SC/C-arm FL for CVA 28547 IMPRESSION: Chemotherapy infusion port and catheter placement as above.
--- NOTE | 2022-12-05 10:00 | XRR_ITS ---
PROCEDURE INFORMATION: Exam: XR Chest Exam date and time: 12/05/2022 12:02 PM Age: 72 years old Clinical indication: Device placement; Other: Postop mediport placement; Prior surgery; Surgery date: Post-operative (0-2 days) TECHNIQUE: Imaging protocol: Radiologic exam of the chest. Views: 1 view. COMPARISON: CT chest ION (PULM ONLY) 07313 11/11/2022 2:21 PM FINDINGS: Tubes, catheters and devices: Patient has undergone placement of a MediPort via left subclavian approach whose tip projects over the cavoatrial junction in satisfactory position. Lungs: 3 cm right upper lobe mass better demonstrated on earlier CT likely malignant in nature. Diffuse emphysematous changes remaining lung cuevas. Pleural spaces: Unremarkable. No pleural effusion. No pneumothorax. Heart/Mediastinum: Unremarkable. No cardiomegaly. Bones/joints: Unremarkable for age. XR/XR chest 1V portable 50026 IMPRESSION: Interval placement of left-sided MediPort in satisfactory position.
[2022-12-05] MEDS: sodium chloride 0.9% 1,000 ML 30 ML IV (10:20)
--- NOTE | 2022-12-05 10:38 | W.PM.OPSUD ---
Surgery/Procedure H&P Update DATE OF PROCEDURE: December 05, 2022 DATE H&P PERFORMED: 11/30/22 H&P UPDATE INFORMATION: I have reviewed H&P completed within last 30 days, I have examined patient prior to procedure and No changes to prior documentation PREOP DIAGNOSIS: Lung cancer PLANNED PROCEDURE: Operation Date: 12/05/22 11:45 Proposed Procedures p 94843 Port Placement C34.11,(Not Applicable) - Lincoln Finley DO
--- NOTE | 2022-12-05 11:39 | ANES.PREANE2 ---
Pre-Anesthetic Assessment Height/Weight: Height 1.83 m Weight 64.41 kg Temp Pulse Resp BP Pulse Ox O2 Del Method 99 F 69 18 129/74 94 Room Air 12/05/22 10:10 12/05/22 10:10 12/05/22 10:10 12/05/22 10:10 12/05/22 10:10 12/05/22 10:10 Preop Diagnosis: Lung cancer Operation Date: 12/05/22 11:45 Proposed Procedures p 09795 Port Placement C34.11,(Not Applicable) - Lincoln Finley DO Familial anesthetic complications: None Was Beta Kami taken within 24 hours: N/A Was Clonidine taken within 24 hours: N/A Last intake: Intake Last Liquid Date 12/04/22 Last Liquid Time 23:00 Last Solid Date 12/04/22 Last Solid Time 20:00 Social No alcohol and No tobacco Exam alert, oriented x 3, clear to auscultation bilaterally and regular rate & rhythm Airway Mallampati: Class III Dentition: other (none) Pulmonary Chronic Obstructive Pulmonary Disease NSCC RUL CV/HEM Hypertension AAA endovascular stent GI Gastroesophageal Reflux Disease Metabolic Hyperlipidemia Anesthetic Plan ASA status: 4 Anesthesia: MAC Risk of > 500 ml blood loss (7ml/kg in children): No Medications/Allergies Home Medications Medication Instructions Recorded Confirmed Last Taken Type albuterol sulfate 2.5 mg/3 mL 2.5 mg inhalation Q6H PRN Dyspnea 07/07/20 12/05/22 12/05/22 History (0.083 %) solution for nebulization amlodipine 5 mg tablet 5 mg PO DAILY 07/07/20 12/05/22 12/05/22 History cholecalciferol (vitamin D3) 50 50 mcg PO DAILY 07/07/20 12/05/22 12/04/22 History mcg (2,000 unit) capsule multivitamin 1 tab PO DAILY 07/07/20 12/05/22 12/04/22 History rosuvastatin 20 mg tablet 10 mg PO DAILY 07/07/20 12/05/22 12/04/22 History bee pollen 1,000 mg chewable tablet 1,000 mg PO BID 08/21/20 12/05/22 12/04/22 History omeprazole 20 mg tablet,delayed 20 mg PO DAILY 08/21/20 12/05/22 12/04/22 History release tramadol 50 mg tablet 50 mg PO .q4-6hr PRN pain #40 tabs 07/03/22 12/05/22 12/04/22 Rx budesonide 160 mcg-glycopyr 9 2 inh inhalation BID #10.7 grams 11/11/22 12/05/22 12/04/22 Rx mcg-formot 4.8 mcg/actuation HFA inhaler (Breztri Aerosphere) lidocaine 5 % topical patch 1 patch topical DAILY PRN Pain 11/11/22 12/02/22 12/02/22 History prednisone 10 mg tablet 10 mg PO DAILY 11/11/22 12/05/22 12/04/22 History azithromycin 250 mg tablet 250 mg PO .3 times weekly #30 tabs 11/15/22 12/05/22 12/02/22 Rx benzonatate 100 mg capsule 100 mg PO BID PRN cough #20 caps 11/21/22 12/05/22 12/04/22 Rx hydrocodone 10 mg-acetaminophen 1 tab PO QID PRN pain 30 days #120 11/25/22 12/05/22 12/04/22 Rx 325 mg tablet tabs Allergies Allergy/AdvReac Type Severity Reaction Status Date / Time adhesive Allergy ALGY-Rash Verified 12/02/22 10:46 tetracycline AdvReac ADR-Halluci Verified 12/02/22 10:46 nating Current Medications Generic Name Dose Route Start Last Admin Trade Name Freq PRN Reason Stop Dose Admin Sodium Chloride 1,000 mls @ 30 mls/hr 12/05/22 10:00 12/05/22 10:20 Sodium Chloride 0.9% IV 12/06/22 09:59 30 mls/hr .Q24H DAVIS Administration PFSH Anesthesia Medical History Compression fracture of thoracic vertebra COPD (chronic obstructive pulmonary disease) Dyslipidemia GERD (gastroesophageal reflux disease) HTN (hypertension), benign Non-small cell lung cancer Osteoporosis PAD (peripheral artery disease) Surgical History H/O circumcision H/O colonoscopy 2014 H/O esophagogastroduodenoscopy History of bronchoscopy (11/15/22) Navigational bronchoscopy/EBUS History of cataract extraction History of hip surgery History of kyphoplasty (03/04/22) T5 kyphoplasty S/P AAA (abdominal aortic aneurysm) repair Family History Other CAD (coronary artery disease) Cancer Diabetes Hypertension Stroke Denies family history of Anesthesia complication Bleeding disorder Social History Smoking and tobacco status: former smoker Quit status (tobacco): has quit using tobacco Year quit tobacco: 2019 Former quit date comment: 1.5 ppd X 54 years, Alcohol intake: former Substance/Drug Use: never Household members: significant other Marital status: Single Current occupational status: retired Data Anesthesia Cardiac Studies: No Data to Display
[2022-12-05] MEDS: ceFAZolin 2,000 MG in sodium chloride 0.9% (plus) 50 ML 100 MG IV (11:49)
[2022-12-05] MEDS: lidocaine-epi 2% 20 mL INJ INJECTION (12:24)
[2022-12-05] MEDS: heparin, porcine 1,000 unit/mL INJ 10 mL 10000 UNIT XX (12:25)
--- NOTE | 2022-12-05 12:31 | P.OP_ITS ---
Operative Report Date of procedure: December 05, 2022 Pre-op diagnosis: Preop Diagnosis Lung cancer Post-op diagnosis: same Procedure done: Left internal jugular Mediport placement Implants: PowerPort Specimens removed/disposition: None Surgeon: Dr. Lincoln Finley, DO Anesthesia: MAC Estimated blood loss (mL): 5 Complications: None apparent Brief History: This is a very pleasant 72-year-old gentleman with lung cancer. Oncology requested Mediport placement for chemotherapy infusions. The risk and benefits were explained and documented. Procedure: They put another order I will do right now things the patient was taken to the operating room and placed supine on the operating room table. All bony prominences were padded. She was given IV sedation and monitored throughout the case by the anesthesia personnel. SCDs were placed and turned on. The arms were tucked to the side. Patient received Ancef 2 g preoperatively IV. The bilateral chest wall was prepped and draped in usual sterile fashion using chlorhexidine base prep. Sterile drapes were applied. We did procedure pause prior to beginning. An 18 gauge needle was used to attempt access of the left subclavian vein. The subclavian artery was accessed, and the needle was removed and pressure was held. I then decided to move to the left internal jugular vein. Under u ltrasound guidance the left internal jugular vein was accessed. Dark, nonpulsatile blood was aspirated. A guidewire was placed through the needle centrally toward the atrial/vena caval junction. Fluoroscopy visualized good placement. The needle was removed and the guidewire was clipped to the drape with a hemostat. Further local anesthetic was infiltrated in the soft tissues of the left chest w all and a #15 blade was used to make a horizontal skin incision. A subcutaneous Mediport pocket was created using Bovie cautery, dissecting down through the skin and subcutaneous tissues. Meticulous hemostasis was achieved. The Mediport was sutured in position using 3-0 vicryl suture x2 stitches. A #15 blade was used to make a small skin huang around the guidewire insertion area. The Mediport tubing was tunneled through the subcutaneous tissues up to the needle insertion location. A dilator with a peel-away sheath was placed over the guidewire and placed centrally. After measuring the Mediport tubing was cut to length so that the tip would end at the atrial/vena caval junction. The inner cannula and the guidewire were removed, leaving the dilator sheath in place. The Mediport was flushed. The tip of the catheter was inserted through the peel-away sheath and the peel-away sheath removed in the standard fashion. The Mediport was accessed with a straight Fields needle and dark, nonpulsatile blood was aspirated and flushed using heparinized saline to hep-lock the Mediport. Final fluoroscopy visualization showed no kink in the catheter and the tip of the Mediport tubing near the atrial/vena caval junction. Both skin incisions were thoroughly irrigated and suctioned dry. Meticulous hemostasis noted. The dermis was approximated with 3-0 Vicryl in an interrupted fashion. Skin was closed with Dermabond. Patient was awakened from anesthesia and transferred via her cart to the recovery room in stable condition. All needle, sponge, and instrument counts were correct per the operating personnel x2 counts.
--- NOTE | 2022-12-05 13:08 | ANE.PACU2 ---
Inpatient post-anesthesia follow up: Airway intact: Yes Vital signs: Temperature 97 F Pulse Rate 78 Respiratory Rate 18 Blood Pressure 132/71 Pulse Oximetry 98 Oxygen Delivery Me thod Room Air Oxygen Flow Rate Fraction of Inspir ed Oxygen Hydration adequate: Yes Nausea and vomiting: No Pain level: 1 Mental status: Baseline
== END 2022-12-05 13:35 | disposition home or self-care (01) ==
PROVIDERS: PCP Family Medicine; Visit Provider Surgery
PROC: (CPT 36561; principal; 2022-12-05 11:35)
DX: C34.90 Malignant neoplasm of unspecified part of unspecified bronchus or lung (principal); I10 Essential (primary) hypertension; E78.5 Hyperlipidemia, unspecified; J44.9 Chronic obstructive pulmonary disease, unspecified; Z79.899 Other long term (current) drug therapy; Z87.891 Personal history of nicotine dependence
CPT/HCPCS: 36561; 71045; 76000; 77001; C1788; J0690; J1100; J1644; J2250; J2405; J2704; J3010; J7030

== ENCOUNTER 2022-12-09 07:41 | Outpatient (CLI) | payer OTHER, SELFPAY ==
--- NOTE | 2022-12-09 07:54 | USCV_ITS ---
Brian Russo Age: 72 Gender: M : 1950 Exam Date: 12/09/2022 08:08 Ordering Phys: Ruthy Piña MD Technologist: Exam Location: [facility] [place]: ao stent HISTORY: Diameter (cm) AP x Transverse x Length Velocity (cm/s) Waveform Prox Aorta: x x Mid Aorta: x x 101.20 Distal Aorta: x x Right Iliac Prox: x x Left Iliac Prox: x x Stent Prox Landing 0.97 x 1.11 x 138.60 Aneurysmal Sac Max 2.11 x 2.20 x 117.80 Lt Lat Sac Dim 0.54 Rt Lat Sac Dim 0.71 Stent Dist Landing 1.38 x 1.58 x 106.40 Right Iliac Stent 0.85 x 0.74 x 117.70 Left Iliac Stent 0.76 x 0.98 x 95.20 Right Renal Art 89.90 Left Renal Art 113.90 FINDINGS: The aortoiliac stent graft appears to be patent. Normal/near normal Doppler flow velocities. The aneurysm sac measures 2.1 x 2.3 cm. The right iliac stent grafts were found to be patent. The distal landing on the right side was 1.38 x 1.58 centimeter in diameter on the right side. That on the left side, it was 0.85 x 0.74. Normal renal artery Doppler velocities CONCLUSIONS Patent aortoiliac stent graft. No evidence of endoleak Normal flow velocities in the stent grafts and in the renal arteries with no evidence of stenosis Dr Antoinette Kim MD [facility] (Electronically Signed) Final Date: 13 Dec 2022 00:18 S
== END 2022-12-09 07:42 | disposition home or self-care (01) ==
LOC: RAD 07:43
PROVIDERS: PCP Family Medicine; Visit Provider Family Medicine
DX: I71.21 Aneurysm of the ascending aorta, without rupture (principal); J43.9 Emphysema, unspecified; C34.11 Malignant neoplasm of upper lobe, right bronchus or lung; Z95.2 Presence of prosthetic heart valve; Z99.81 Dependence on supplemental oxygen; Z87.891 Personal history of nicotine dependence
CPT/HCPCS: 93978; 99214

== ENCOUNTER → 2022-12-15 08:11 | Outpatient (BNVA) | payer OTHER, SELFPAY | PROVIDERS: PCP Family Medicine; Visit Provider Nurse Practitioner Family | DX: C34.11 Malignant neoplasm of upper lobe, right bronchus or lung (principal) | CPT/HCPCS: 99215 ==

== ENCOUNTER 2022-12-23 10:44 | Oncology outpatient (recurring) (ONCR) | payer OTHER, SELFPAY ==
--- NOTE | 2022-12-08 13:29 | N.ONRAD NP_ITS ---
Radiation Oncology Consultation Patient Name: Brian Russo Date of : 1950 Date of Service: 12/08/2022 Attending Physician: Petros Hylton M.D. Brian Russo was seen in consultation this afternoon at the request of Matias Mccord M.D. for consideration of thoracic radiotherapy in the management of a recently diagnosed non-small cell lung cancer. He was evaluated at the [facility]'s Emergency Department for dyspnea in September. A chest radiograph demonstrated a 2.3 cm right upper-lobe nodule. A CT angiogram identified a right-upper lobe nodule measuring 2.4 cm, a right hilar lymph node measuring 1.5 cm, and severe emphysema. A PET scan (independently reviewed in [facility]) ordered on October 22, 2022 confirmed hypermetabolic activity within the right upper-lobe lesion (SUV 16.2) and right hilar lymph node (SUV 5). A navigational bronchoscopy with endobronchial ultrasound-guided biopsy was performed on November 15, 2022 by Celso Justin M.D. 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 PD-L1 expression demonstrated a TPS of less than 1%. An MRI of the brain did not identify metastatic disease. The patient was referred for definitive thoracic radiotherapy. I discussed with Ms. Russo the [place] [employer] Staging for lung cancer and specifically, the clinical stage IIB (T1cN1) lung cancer corresponding to his disease. I also reviewed The National Comprehensive Cancer Network Guidelines recommending surgical exploration and mediastinal lymph node dissection or concurrent chemoradiotherapy in medically inoperable patients. Combined modality treatment was established by the classic study, RTOG 9410, comparing sequential versus concurrent chemoradiotherapy that demonstrated an overall survival advantage for the concurrent chemoradiotherapy regimen. I would endorse a six week course of thoracic radiotherapy. Preceding radiotherapy, a computed tomographic radiotherapy planning scan with contrast in the treatment position will be acquired and co-registered to the patient's staging PET scan to identify the gross tumor volumes. The potential toxicities of thoracic radiotherapy were reviewed. The patient has verbalized understanding would like to proceed as recommended. The patient???s treatment plan was discussed with Matias Mccord M.D. Signed by: Petros Hylton 12/08/2022 1:28:59 PM
[2022-12-08 14:19] LABS: Basophils % 0.3 %; Eosinophils % 0.2 %; Hematocrit 43.4 % (42.0-52.0); Lymphocytes # 1.1 10^3/uL (0.8-4.8); Lymphocytes % 8.9 %; Mean Corpuscular HGB Conc 34.6 g/dL (30.0-36.0); Mean Corpuscular Hemoglobin 32.4 pg (28.0-34.0); Mean Corpuscular Volume 93.7 fl (80-94); Monocytes # 0.7 10^3/uL (0.2-0.9); Monocytes % 5.7 %; Neutrophils # 10.04 10^3/uL (1.8-7.7); Neutrophils % 84.5 %; Nucleated Red Blood Cells % 0 %; Platelet Count 271 10^3/cmm (130-400); Red Blood Count 4.63 10^6/uL (4.1-5.3); Red Cell Distribution Width 11.9 % (12.1-15.1); White Blood Count 11.9 10^3/uL (4.0-10.0)
[2022-12-08 14:33] LABS: Alanine Aminotransferase 39 U/L (0-41); Albumin Level 4.2 g/dL (3.5-5.2); Alkaline Phosphatase 68 U/L (40-130); Anion Gap 14.2 (5-19); Aspartate Amino Transferase 38 U/L (0-40); Blood Urea Nitrogen 10 mg/dL (8-23); Calcium 9.6 mg/dL (8.5-10.5); Carbon Dioxide 27 mmol/L (22-29); Chloride 100 mmol/L (98-107); Globulin 2.5 g/dL (1.3-4.6); Glucose 87 mg/dL (65-115); Osmolality Calculated 282 mOsm/kg (285-295); Potassium 4.2 mmol/L (3.5-5.1); Sodium 137 mmol/L (136-145); Total Bilirubin 0.4 mg/dL (0.15-1.2); Total Protein 6.7 g/dL (6.6-8.7)
--- NOTE | 2022-12-13 | CT_ITS ---
Radiation Therapy Planning CT images; total exam DLP: 298.18 mGy-cm MTDD
[2022-12-13] MEDS: iohexol 350 mg/mL 100 mL Btl IV (13:52)
[2022-12-15 08:59] VITALS: BP 121/66; PULSE 77; TEMP 37.6; O2SAT 77
[2022-12-15 09:03] LABS: Basophils # 0.1 10^3/uL (0.0-0.1); Basophils % 0.7 %; Eosinophils # 0.1 10^3/uL (0.0-0.8); Eosinophils % 0.6 %; Hematocrit 41.1 % (42.0-52.0); Hemoglobin 14.2 g/dL (11.7-16.6); Lymphocytes # 1.7 10^3/uL (0.8-4.8); Lymphocytes % 15.2 %; Mean Corpuscular HGB Conc 34.5 g/dL (30.0-36.0); Mean Corpuscular Hemoglobin 32.3 pg (28.0-34.0); Mean Corpuscular Volume 93.4 fl (80-94); Mean Platelet Volume 8.8 fL (7.4-10.4); Monocytes # 0.8 10^3/uL (0.2-0.9); Monocytes % 7.2 %; Neutrophils # 8.24 10^3/uL (1.8-7.7); Neutrophils % 75.7 %; Nucleated Red Blood Cells % 0 %; Platelet Count 257 10^3/cmm (130-400); Red Cell Distribution Width 11.6 % (12.1-15.1); White Blood Count 10.9 10^3/uL (4.0-10.0)
[2022-12-15 09:29] LABS: Alanine Aminotransferase 23 U/L (0-41); Alkaline Phosphatase 62 U/L (40-130); Anion Gap 12.7 (5-19); Aspartate Amino Transferase 22 U/L (0-40); Blood Urea Nitrogen 7 mg/dL (8-23); Carbon Dioxide 29 mmol/L (22-29); Chloride 100 mmol/L (98-107); Creatinine Clr Calc Pharmacy 65.2038; Globulin 2.2 g/dL (1.3-4.6); Glucose 136 mg/dL (65-115); Osmolality Calculated 286 mOsm/kg (285-295); Potassium 3.7 mmol/L (3.5-5.1); Sodium 138 mmol/L (136-145); Total Bilirubin 0.3 mg/dL (0.15-1.2); Total Protein 6.2 g/dL (6.6-8.7)
[2022-12-15] MEDS: sodium chloride 0.9% (100 ml) 100 ML 25 ML (11:15)
[2022-12-15] MEDS: famotidine 20 mg/2 mL INJ IVP (11:16)
[2022-12-15] MEDS: acetaminophen 325 mg Tablet 650 MG PO (11:16)
[2022-12-15] MEDS: diphenhydrAMINE 50 mg/mL SDV 1mL 25 MG IVP (11:16)
[2022-12-15] MEDS: palonosetron 0.25 mg/5 mL SDV IVP (11:16)
[2022-12-15] MEDS: dexamethasone 20 MG in sodium chloride 0.9% 50 ML 188 MG IV (11:17)
[2022-12-15] MEDS: PACLitaxeL 90 MG in sodium chloride 0.9%(non-DEHP) 250 ML 265 MG IV (12:25)
[2022-12-15] MEDS: CARBOplatin 180 MG in sodium chloride 0.9% 500 ML 518 MG IV (13:44)
[2022-12-15 15:54] VITALS: BP 109/62; PULSE 74; TEMP 36.6; O2SAT 95
--- NOTE | 2022-12-20 13:42 | ONCRAD TMN_ITS ---
Radiation Oncology Treatment Management Note Patient Name: Brian Russo Date of : 1950 Date of Service: 12/20/2022 Attending Physician: Petros Hylton M.D. Brian Russo is a 72 year-old white male recently diagnosed with a clinical stage IIB (T1cN1) non-small cell lung cancer. He was evaluated at the [facility]'s Emergency Department for dyspnea in September. A chest radiograph demonstrated a 2.3 cm right upper-lobe nodule. A CT angiogram identified a right-upper lobe nodule measuring 2.4 cm, a right hilar lymph node measuring 1.5 cm, and severe emphysema. A PET scan ordered on October 22, 2022 confirmed hypermetabolic activity within the right upper-lobe lesion (SUV 16.2) and right hilar lymph node (SUV 5). A navigational bronchoscopy with endobronchial ultrasound-guided biopsy was performed on November 15, 2022 by Celso Justin M.D. 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 PD-L1 expression demonstrated a TPS of less than 1%. An MRI of the brain did not identify metastatic disease. He has been prescribed carboplatin (AUC 2) and paclitaxel (50 mg/m???) weekly during therapy. The patient has received 8 Gy of a prescribed 60 Jones with an intensity modulated radiotherapy plan utilizing a step and shoot treatment technique. Upon review of systems, he reported fatigue. On physical examination, the patient weighed 120 lbs. His temperature was 98.1 ???F and the blood pressure was 123/64 mmHg. The pulse was 96 bpm and his respiratory rate was 18. Oxygen saturation while breathing room air was 96%. Decreased bilateral lung sounds were present. Continue thoracic radiotherapy as prescribed. Signed by: Petros Hylton 12/20/2022 1:45:23 PM
[2022-12-21 11:30] VITALS: BP 122/66; PULSE 68; RESP 18; TEMP 36.2; O2SAT 97
[2022-12-21 11:34] LABS: Basophils % 0.5 %; Eosinophils # 0.1 10^3/uL (0.0-0.8); Eosinophils % 1.6 %; Hematocrit 39.3 % (42.0-52.0); Hemoglobin 13.7 g/dL (11.7-16.6); Lymphocytes # 2.4 10^3/uL (0.8-4.8); Lymphocytes % 30.1 %; Mean Corpuscular HGB Conc 34.9 g/dL (30.0-36.0); Mean Corpuscular Hemoglobin 32.5 pg (28.0-34.0); Mean Corpuscular Volume 93.3 fl (80-94); Monocytes # 0.3 10^3/uL (0.2-0.9); Monocytes % 3.3 %; Neutrophils # 5.11 10^3/uL (1.8-7.7); Neutrophils % 64.1 %; Nucleated Red Blood Cells % 0 %; Platelet Count 249 10^3/cmm (130-400); Red Blood Count 4.21 10^6/uL (4.1-5.3); Red Cell Distribution Width 11.6 % (12.1-15.1)
[2022-12-21 11:58] LABS: Alanine Aminotransferase 19 U/L (0-41); Albumin Level 3.7 g/dL (3.5-5.2); Alkaline Phosphatase 57 U/L (40-130); Anion Gap 16.2 (5-19); Aspartate Amino Transferase 20 U/L (0-40); Blood Urea Nitrogen 10 mg/dL (8-23); Carbon Dioxide 26 mmol/L (22-29); Chloride 98 mmol/L (98-107); Creatinine Clr Calc Pharmacy 65.2038; Globulin 1.9 g/dL (1.3-4.6); Glucose 160 mg/dL (65-115); Osmolality Calculated 286 mOsm/kg (285-295); Potassium 3.2 mmol/L (3.5-5.1); Sodium 137 mmol/L (136-145); Total Bilirubin 0.5 mg/dL (0.15-1.2); Total Protein 5.6 g/dL (6.6-8.7)
[2022-12-22 09:00] VITALS: BP 110/55; PULSE 76; TEMP 37.2; O2SAT 97
[2022-12-22] MEDS: acetaminophen 325 mg Tablet 650 MG PO (09:54)
[2022-12-22] MEDS: sodium chloride 0.9% 250 ML 100 ML IV (09:54)
[2022-12-22] MEDS: famotidine 20 mg/2 mL INJ IVP (09:55)
[2022-12-22] MEDS: diphenhydrAMINE 50 mg/mL SDV 1mL 25 MG IVP (09:55)
[2022-12-22] MEDS: palonosetron 0.25 mg/5 mL SDV IVP (09:59)
[2022-12-22] MEDS: dexamethasone 20 MG in sodium chloride 0.9% 50 ML 188 MG IV (10:00)
[2022-12-22] MEDS: PACLitaxeL 90 MG in sodium chloride 0.9%(non-DEHP) 250 ML 265 MG IV (10:32)
[2022-12-22] MEDS: CARBOplatin 180 MG in sodium chloride 0.9% 500 ML 518 MG IV (11:56)
[2022-12-22 13:00] VITALS: BP 131/72; PULSE 80; TEMP 36.6; O2SAT 97
== END 2022-12-23 23:59 | disposition home or self-care (01) ==
PROVIDERS: Internal Medicine Medical Oncology; Nurse Practitioner Family; PCP Family Medicine; Visit Provider Radiology Radiation Oncology
DX: Z51.0 Encounter for antineoplastic radiation therapy (principal); C34.11 Malignant neoplasm of upper lobe, right bronchus or lung; C77.1 Secondary and unspecified malignant neoplasm of intrathoracic lymph nodes; J43.9 Emphysema, unspecified; Z87.891 Personal history of nicotine dependence
CPT/HCPCS: 36591; 77300; 77301; 77334; 77336; 77338; 77386; 77470; 80053; 85025; 96375; 96411; 96413; 96417; 99024; 99205; 99213; 99214; J1100; J1200; J1642; J2469; J3490; J7040; J7050; J9045; J9267; Q9967

== ENCOUNTER → 2022-12-29 08:20 | Outpatient (BNVA) | payer OTHER, SELFPAY | PROVIDERS: PCP Family Medicine; Visit Provider Internal Medicine Medical Oncology | DX: Z51.0 Encounter for antineoplastic radiation therapy (principal); C34.11 Malignant neoplasm of upper lobe, right bronchus or lung; Z87.891 Personal history of nicotine dependence | CPT/HCPCS: 77014; 77386; 99214 ==

== ENCOUNTER 2023-01-04 13:04 | Oncology outpatient (recurring) (ONCR) | payer OTHER, SELFPAY ==
[2022-12-26] MEDS: sodium chloride 0.9% 500 ML 75 ML IV (13:47)
[2022-12-26] MEDS: ondansetron 2 mg/ML SDV 2 mL 8 MG IVP (13:48)
[2022-12-26 13:52] VITALS: BP 104/65; PULSE 97; RESP 18; TEMP 37; O2SAT 96
--- NOTE | 2022-12-27 14:15 | ONCRAD TMN_ITS ---
Radiation Oncology Weekly Treatment Management Patient: Karan Torres> MR#: [id number] : 1950> Attending Physician: Nishant Sheikh Date of Service: 12/27/2022 Referring Physician(s) : Diagnosis: C34.10 - Malignant neoplasm of upper lobe, unspecified bronchus or lung, Diagnosed 11/15/2022 (Active) Stage IIB, T1c, N1, M0 Radiotherapy to date: Course: Lung 2022, Treatment Site: [facility] - Rt Lung, Ref. ID: [id number], Energy: 6X, Dose/Fx (cGy): 200, #Fx: , Dose Correction (cGy): 0, Total Dose (cGy): 1,800, Start Date: 12/15/2022, Elapsed Days: 12 Reason for visit: The patient is being seen today as part of their regularly scheduled weekly on treatment visits to assess for acute toxicities from radiotherapy. Review of Systems: He is up all night and just cant get to sleep due to night time anxiety. Not able to nap during the day. Not on any anxiolytic or insomnia meds now. Breathing ok with aid of nebulizer. Not smoking. Swallowing with minimal tenderness. [facility] for insomnia sent to [facility] in [place], [place]. Vital Signs: Performed on 12/27/2022 1:38 PM BMI - 16.329 kg/m2 (low), Height - 72 in, Weight - 120.4 lbs, Temperature - 97.7 f, Pulse - 100 /min, Respiration - 18 /min, O2 Sat - 93 % (low), Pain - 4, Fatigue - 4 and BP - 135/ 70 mm(hg). Physical Exam: Omitted. Imaging: Radiation therapy imaging related to accurate target localization (i.e. KV, MV and CBCT) was reviewed. Appropriate changes, if any, were made to ensure treatment accuracy. Plan: Fair to good tolerance of treatment. We will rx Ambien 10 mg #15 [facility]. We will continue treatment as planned. Signed by: Nishant Sheikh 12/27/2022 2:15:18 PM
[2022-12-29 08:45] VITALS: BP 105/55; PULSE 85; RESP 18; TEMP 37.7; O2SAT 98
[2022-12-29 09:14] LABS: Basophils % 0.2 %; Eosinophils % 0.7 %; Hematocrit 34.8 % (42.0-52.0); Hemoglobin 11.8 g/dL (11.7-16.6); Lymphocytes # 0.4 10^3/uL (0.8-4.8); Lymphocytes % 8.4 %; Mean Corpuscular HGB Conc 33.9 g/dL (30.0-36.0); Mean Corpuscular Hemoglobin 32.2 pg (28.0-34.0); Mean Corpuscular Volume 94.8 fl (80-94); Mean Platelet Volume 9.1 fL (7.4-10.4); Monocytes # 0.3 10^3/uL (0.2-0.9); Monocytes % 6.6 %; Neutrophils # 3.69 10^3/uL (1.8-7.7); Neutrophils % 83.4 %; Nucleated Red Blood Cells % 0 %; Platelet Count 183 10^3/cmm (130-400); Red Blood Count 3.67 10^6/uL (4.1-5.3); Red Cell Distribution Width 11.9 % (12.1-15.1); White Blood Count 4.4 10^3/uL (4.0-10.0)
[2022-12-29 09:35] LABS: Alanine Aminotransferase 36 U/L (0-41); Albumin Level 3.6 g/dL (3.5-5.2); Alkaline Phosphatase 60 U/L (40-130); Anion Gap 11.7 (5-19); Aspartate Amino Transferase 26 U/L (0-40); Blood Urea Nitrogen 10 mg/dL (8-23); Calcium 8.9 mg/dL (8.5-10.5); Carbon Dioxide 27 mmol/L (22-29); Chloride 103 mmol/L (98-107); Glucose 99 mg/dL (65-115); Osmolality Calculated 285 mOsm/kg (285-295); Potassium 3.7 mmol/L (3.5-5.1); Sodium 138 mmol/L (136-145); Total Bilirubin 0.2 mg/dL (0.15-1.2); Total Protein 5.6 g/dL (6.6-8.7)
[2022-12-29] MEDS: sodium chloride 0.9% 250 ML 75 ML IV (11:01)
[2022-12-29] MEDS: acetaminophen 325 mg Tablet 650 MG PO (11:02)
[2022-12-29] MEDS: diphenhydrAMINE 50 mg/mL SDV 1mL 25 MG IVP (11:09)
[2022-12-29] MEDS: famotidine 20 mg/2 mL INJ IVP (11:12)
[2022-12-29] MEDS: dexamethasone 20 MG in sodium chloride 0.9% 50 ML 188 MG IV (11:16)
[2022-12-29] MEDS: palonosetron 0.25 mg/5 mL SDV IVP (11:17)
[2022-12-29] MEDS: PACLitaxeL 90 MG in sodium chloride 0.9%(non-DEHP) 250 ML 265 MG IV (11:51)
[2022-12-29] MEDS: CARBOplatin 180 MG in sodium chloride 0.9% 500 ML 518 MG IV (13:12)
[2022-12-29 15:10] VITALS: BP 114/78; PULSE 74; RESP 18; TEMP 36.6; O2SAT 98
--- NOTE | 2023-01-03 13:43 | ONCRAD TMN_ITS ---
Radiation Oncology Treatment Management Note Patient Name: Brian Russo Date of : 1950 Date of Service: 01/03/2023 Attending Physician: Petros Hylton M.D. Brian Russo is a 72 year-old white male recently diagnosed with a clinical stage IIB (T1cN1) non-small cell lung cancer. He was evaluated at the [facility]'s Emergency Department for dyspnea in September. A chest radiograph demonstrated a 2.3 cm right upper-lobe nodule. A CT angiogram identified a right-upper lobe nodule measuring 2.4 cm, a right hilar lymph node measuring 1.5 cm, and severe emphysema. A PET scan ordered on October 22, 2022 confirmed hypermetabolic activity within the right upper-lobe lesion (SUV 16.2) and right hilar lymph node (SUV 5). A navigational bronchoscopy with endobronchial ultrasound-guided biopsy was performed on November 15, 2022 by Celso Justin M.D. 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 PD-L1 expression demonstrated a TPS of less than 1%. An MRI of the brain did not identify metastatic disease. He has been prescribed carboplatin (AUC 2) and paclitaxel (50 mg/m???) weekly during therapy. The patient has received 26 Gy of a prescribed 60 Jones with an intensity modulated radiotherapy plan utilizing a step and shoot treatment technique. Upon review of systems, he reported nausea. On physical examination, the patient weighed 125 lbs. His temperature was 97.1 ???F and the blood pressure was 128/68 mmHg. The pulse was 109 bpm and his respiratory rate was 18. Oxygen saturation while breathing room air was 96%. Decreased lung sounds were present. Continue thoracic radiotherapy as planned. Signed by: Dr. Petros Hylton 01/03/2023 1:42:27 PM
== END 2023-01-04 23:59 | disposition home or self-care (01) ==
PROVIDERS: Internal Medicine Medical Oncology; PCP Family Medicine; Visit Provider Radiology Radiation Oncology
DX: Z51.0 Encounter for antineoplastic radiation therapy (principal); C34.11 Malignant neoplasm of upper lobe, right bronchus or lung; C77.1 Secondary and unspecified malignant neoplasm of intrathoracic lymph nodes; J43.9 Emphysema, unspecified; R11.0 Nausea; Z79.899 Other long term (current) drug therapy; Z87.891 Personal history of nicotine dependence; Z95.828 Presence of other vascular implants and grafts
CPT/HCPCS: 77336; 77386; 80053; 85025; 96365; 96375; 96413; 96417; 99024; J1100; J1200; J1642; J2405; J2469; J3490; J7040; J7050; J9045; J9267

== ENCOUNTER → 2023-01-19 13:00 | Outpatient (BNVA) | payer OTHER, SELFPAY | PROVIDERS: PCP Family Medicine; Visit Provider Nurse Practitioner Family | DX: Z51.0 Encounter for antineoplastic radiation therapy (principal); C34.11 Malignant neoplasm of upper lobe, right bronchus or lung; C77.1 Secondary and unspecified malignant neoplasm of intrathoracic lymph nodes; J43.9 Emphysema, unspecified; Z79.899 Other long term (current) drug therapy; Z87.891 Personal history of nicotine dependence; Z95.828 Presence of other vascular implants and grafts | CPT/HCPCS: 77014; 77336; 77386; 99214 ==

== ENCOUNTER 2023-01-26 13:06 | Oncology outpatient (recurring) (ONCR) | payer OTHER, SELFPAY ==
[2023-01-05 07:21] VITALS: BP 121/65; PULSE 94; TEMP 37; O2SAT 97
[2023-01-05 07:42] LABS: Basophils % 0.6 %; Eosinophils % 0.9 %; Hematocrit 35.7 % (42.0-52.0); Hemoglobin 12.5 g/dL (11.7-16.6); Lymphocytes # 0.7 10^3/uL (0.8-4.8); Lymphocytes % 20.4 %; Mean Corpuscular Hemoglobin 32.9 pg (28.0-34.0); Mean Corpuscular Volume 93.9 fl (80-94); Mean Platelet Volume 8.9 fL (7.4-10.4); Monocytes # 0.3 10^3/uL (0.2-0.9); Monocytes % 9.5 %; Neutrophils # 2.37 10^3/uL (1.8-7.7); Nucleated Red Blood Cells % 0 %; Platelet Count 151 10^3/cmm (130-400); Red Cell Distribution Width 11.8 % (12.1-15.1); White Blood Count 3.5 10^3/uL (4.0-10.0)
[2023-01-05 08:07] LABS: Alanine Aminotransferase 51 U/L (0-41); Albumin Level 3.7 g/dL (3.5-5.2); Alkaline Phosphatase 70 U/L (40-130); Anion Gap 13.3 (5-19); Aspartate Amino Transferase 43 U/L (0-40); Blood Urea Nitrogen 8 mg/dL (8-23); Calcium 8.8 mg/dL (8.5-10.5); Carbon Dioxide 26 mmol/L (22-29); Chloride 101 mmol/L (98-107); Creatinine Clr Calc Pharmacy 63.8454; Globulin 2.4 g/dL (1.3-4.6); Glucose 115 mg/dL (65-115); Osmolality Calculated 281 mOsm/kg (285-295); Potassium 4.3 mmol/L (3.5-5.1); Sodium 136 mmol/L (136-145); Total Bilirubin 0.2 mg/dL (0.15-1.2); Total Protein 6.1 g/dL (6.6-8.7)
[2023-01-05] MEDS: sodium chloride 0.9% 250 ML 100 ML IV (09:21)
[2023-01-05] MEDS: palonosetron 0.25 mg/5 mL SDV IVP (09:22)
[2023-01-05] MEDS: famotidine 20 mg/2 mL INJ IVP (09:22)
[2023-01-05] MEDS: diphenhydrAMINE 50 mg/mL SDV 1mL 25 MG IVP (09:22)
[2023-01-05] MEDS: acetaminophen 325 mg Tablet 650 MG PO (09:22)
[2023-01-05] MEDS: dexamethasone 20 MG in sodium chloride 0.9% 50 ML 188 MG IV (09:27)
[2023-01-05] MEDS: PACLitaxeL 90 MG in sodium chloride 0.9%(non-DEHP) 250 ML 265 MG IV (10:07)
[2023-01-05] MEDS: CARBOplatin 200 MG in sodium chloride 0.9% 500 ML 520 MG IV (11:12)
[2023-01-05] MEDS: sodium chloride 0.9% 250 ML IV (13:08)
[2023-01-05 13:15] VITALS: BP 120/71; PULSE 90; TEMP 36.9; O2SAT 98
[2023-01-09 12:20] LABS: Basophils % 0.3 %; Eosinophils % 0.1 %; Hematocrit 36.4 % (42.0-52.0); Lymphocytes # 0.9 10^3/uL (0.8-4.8); Mean Corpuscular HGB Conc 35.7 g/dL (30.0-36.0); Mean Corpuscular Hemoglobin 32.9 pg (28.0-34.0); Mean Corpuscular Volume 92.2 fl (80-94); Monocytes # 0.2 10^3/uL (0.2-0.9); Monocytes % 3.1 %; Neutrophils % 83.2 %; Nucleated Red Blood Cells % 0 %; Platelet Count 170 10^3/cmm (130-400); Red Blood Count 3.95 10^6/uL (4.1-5.3); White Blood Count 6.9 10^3/uL (4.0-10.0)
[2023-01-09 12:41] LABS: Alanine Aminotransferase 40 U/L (0-41); Albumin Level 3.7 g/dL (3.5-5.2); Alkaline Phosphatase 78 U/L (40-130); Anion Gap 15.7 (5-19); Aspartate Amino Transferase 22 U/L (0-40); Blood Urea Nitrogen 13 mg/dL (8-23); Calcium 9.1 mg/dL (8.5-10.5); Carbon Dioxide 25 mmol/L (22-29); Chloride 98 mmol/L (98-107); Globulin 2.5 g/dL (1.3-4.6); Glucose 87 mg/dL (65-115); Osmolality Calculated 279 mOsm/kg (285-295); Potassium 3.7 mmol/L (3.5-5.1); Sodium 135 mmol/L (136-145); Total Bilirubin 0.3 mg/dL (0.15-1.2); Total Protein 6.2 g/dL (6.6-8.7)
[2023-01-09] MEDS: sodium chloride 0.9% 1,000 ML 999 ML IV ×2 (13:00→13:20)
[2023-01-09 15:46] VITALS: BP 129/75; PULSE 98; RESP 16; TEMP 36.6; O2SAT 97
--- NOTE | 2023-01-10 13:36 | ONCRAD TMN_ITS ---
Radiation Oncology Treatment Management Note Patient Name: Brian Russo Date of : 1950 Date of Service: 01/10/2023 Attending Physician: Petros Hylton M.D. Brian Russo is a 72 year-old white male recently diagnosed with a clinical stage IIB (T1cN1) non-small cell lung cancer. He was evaluated at the [facility]'s Emergency Department for dyspnea in September. A chest radiograph demonstrated a 2.3 cm right upper-lobe nodule. A CT angiogram identified a right-upper lobe nodule measuring 2.4 cm, a right hilar lymph node measuring 1.5 cm, and severe emphysema. A PET scan ordered on October 22, 2022 confirmed hypermetabolic activity within the right upper-lobe lesion (SUV 16.2) and right hilar lymph node (SUV 5). A navigational bronchoscopy with endobronchial ultrasound-guided biopsy was performed on November 15, 2022 by Celso Justin M.D. 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 PD-L1 expression demonstrated a TPS of less than 1%. An MRI of the brain did not identify metastatic disease. He has been prescribed carboplatin (AUC 2) and paclitaxel (50 mg/m???) weekly during therapy. The patient has received 34 Gy of a prescribed 60 Jones with an intensity modulated radiotherapy plan utilizing a step and shoot treatment technique. Upon review of systems, he did not have any complaints. On physical examination, the patient weighed 116 lbs. His temperature was 97.3 ???F and the blood pressure was 118/63 mmHg. The pulse was 60 bpm and his respiratory rate was 18. Oxygen saturation while breathing room air was 94%. Continue thoracic radiotherapy as prescribed. Signed by: Dr. Petros Hylton 01/10/2023 1:35:40 PM
--- NOTE | 2023-01-17 13:30 | ONCRAD TMN_ITS ---
Radiation Oncology Treatment Management Note Patient Name: Brian Russo Date of : 1950 Date of Service: 01/17/2023 Attending Physician: Petros Hylton M.D. Brian Russo is a 72 year-old white male recently diagnosed with a clinical stage IIB (T1cN1) non-small cell lung cancer. He was evaluated at the [facility]'s Emergency Department for dyspnea in September. A chest radiograph demonstrated a 2.3 cm right upper-lobe nodule. A CT angiogram identified a right-upper lobe nodule measuring 2.4 cm, a right hilar lymph node measuring 1.5 cm, and severe emphysema. A PET scan ordered on October 22, 2022 confirmed hypermetabolic activity within the right upper-lobe lesion (SUV 16.2) and right hilar lymph node (SUV 5). A navigational bronchoscopy with endobronchial ultrasound-guided biopsy was performed on November 15, 2022 by Celso Justin M.D. 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 PD-L1 expression demonstrated a TPS of less than 1%. An MRI of the brain did not identify metastatic disease. He has been prescribed carboplatin (AUC 2) and paclitaxel (50 mg/m???) weekly during therapy. The patient has received 44 Gy of a prescribed 60 Jones with an intensity modulated radiotherapy plan utilizing a step and shoot treatment technique. Upon review of systems, he denied any complaints. On physical examination, the patient weighed 120 lbs. His temperature was 97.5 ???F and the blood pressure was 118/66 mmHg. The pulse was 106 bpm and his respiratory rate was 18. Oxygen saturation while breathing room air was 97%. Distant breath sounds were auscultated. Continue thoracic radiotherapy as planned. Signed by: Dr. Petros Hylton 01/17/2023 1:52:37 PM
[2023-01-19 11:35] VITALS: BP 112/67; PULSE 71; RESP 18; TEMP 36.9; O2SAT 96
[2023-01-19 11:46] LABS: Basophils % 0.4 %; Eosinophils % 0.2 %; Hematocrit 35.8 % (42.0-52.0); Hemoglobin 12.1 g/dL (11.7-16.6); Lymphocytes # 0.4 10^3/uL (0.8-4.8); Lymphocytes % 7.5 %; Mean Corpuscular HGB Conc 33.8 g/dL (30.0-36.0); Mean Corpuscular Hemoglobin 32.5 pg (28.0-34.0); Mean Corpuscular Volume 96.2 fl (80-94); Mean Platelet Volume 8.2 fL (7.4-10.4); Monocytes # 0.5 10^3/uL (0.2-0.9); Monocytes % 8.4 %; Neutrophils # 4.63 10^3/uL (1.8-7.7); Neutrophils % 83.1 %; Nucleated Red Blood Cells % 0 %; Platelet Count 219 10^3/cmm (130-400); Red Blood Count 3.72 10^6/uL (4.1-5.3); Red Cell Distribution Width 13.4 % (12.1-15.1); White Blood Count 5.6 10^3/uL (4.0-10.0)
[2023-01-19 12:32] LABS: Alanine Aminotransferase 28 U/L (0-41); Albumin Level 3.7 g/dL (3.5-5.2); Alkaline Phosphatase 79 U/L (40-130); Anion Gap 13.4 (5-19); Aspartate Amino Transferase 17 U/L (0-40); Blood Urea Nitrogen 6 mg/dL (8-23); Calcium 8.9 mg/dL (8.5-10.5); Carbon Dioxide 27 mmol/L (22-29); Chloride 103 mmol/L (98-107); Globulin 2.5 g/dL (1.3-4.6); Glucose 81 mg/dL (65-115); Osmolality Calculated 285 mOsm/kg (285-295); Potassium 4.4 mmol/L (3.5-5.1); Sodium 139 mmol/L (136-145); Total Bilirubin 0.2 mg/dL (0.15-1.2); Total Protein 6.2 g/dL (6.6-8.7)
[2023-01-19] MEDS: sodium chloride 0.9% 250 ML 100 ML IV (15:14)
[2023-01-19] MEDS: palonosetron 0.25 mg/5 mL SDV IVP (15:14)
[2023-01-19] MEDS: famotidine 20 mg/2 mL INJ IVP (15:15)
[2023-01-19] MEDS: diphenhydrAMINE 50 mg/mL SDV 1mL 25 MG IVP (15:16)
[2023-01-19] MEDS: acetaminophen 325 mg Tablet 650 MG PO (15:18)
[2023-01-19] MEDS: dexamethasone 20 MG in sodium chloride 0.9% 50 ML 188 MG IV (15:19)
[2023-01-19] MEDS: PACLitaxeL 90 MG in sodium chloride 0.9%(non-DEHP) 250 ML 265 MG IV (15:37)
[2023-01-19] MEDS: CARBOplatin 260 MG in sodium chloride 0.9% 500 ML 526 MG IV (16:43)
[2023-01-19 18:08] VITALS: BP 145/80; PULSE 94; TEMP 36.6; O2SAT 98
--- NOTE | 2023-01-24 13:57 | ONCRAD TMN_ITS ---
Radiation Oncology Treatment Management Note Patient Name: Brian Russo Date of : 1950 Date of Service: 01/24/2023 Attending Physician: Petros Hylton M.D. Brian Russo is a 72 year-old white male recently diagnosed with a clinical stage IIB (T1cN1) non-small cell lung cancer. He was evaluated at the [facility]'s Emergency Department for dyspnea in September. A chest radiograph demonstrated a 2.3 cm right upper-lobe nodule. A CT angiogram identified a right-upper lobe nodule measuring 2.4 cm, a right hilar lymph node measuring 1.5 cm, and severe emphysema. A PET scan ordered on October 22, 2022 confirmed hypermetabolic activity within the right upper-lobe lesion (SUV 16.2) and right hilar lymph node (SUV 5). A navigational bronchoscopy with endobronchial ultrasound-guided biopsy was performed on November 15, 2022 by Celso Justin M.D. 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 PD-L1 expression demonstrated a TPS of less than 1%. An MRI of the brain did not identify metastatic disease. He has been prescribed carboplatin (AUC 2) and paclitaxel (50 mg/m???) weekly during therapy. The patient has received 54 Gy of a prescribed 60 Jones with an intensity modulated radiotherapy plan utilizing a step and shoot treatment technique. Upon review of systems, he denied any complaints. On physical examination, the patient weighed 120 lbs. His temperature was 97.5 ???F and the blood pressure was 118/66 mmHg. The pulse was 106 bpm and his respiratory rate was 18. Oxygen saturation while breathing room air was 97%. Distant breath sounds were present. Continue thoracic radiotherapy as prescribed. He declined IVFs. Signed by: Dr. Petros Hylton 01/24/2023 1:55:37 PM
== END 2023-01-26 23:59 | disposition home or self-care (01) ==
PROVIDERS: Internal Medicine Medical Oncology; PCP Family Medicine; Visit Provider Radiology Radiation Oncology
DX: Z51.0 Encounter for antineoplastic radiation therapy (principal); C34.11 Malignant neoplasm of upper lobe, right bronchus or lung; C77.1 Secondary and unspecified malignant neoplasm of intrathoracic lymph nodes; J43.9 Emphysema, unspecified; Z79.899 Other long term (current) drug therapy; Z87.891 Personal history of nicotine dependence; Z95.828 Presence of other vascular implants and grafts
CPT/HCPCS: 77014; 77336; 77386; 80053; 85025; 96361; 96374; 96375; 96413; 96417; 99214; J1100; J1200; J1642; J2469; J3490; J7030; J7040; J7050; J9045; J9267

== ENCOUNTER 2023-01-27 06:00 | Oncology outpatient (recurring) (ONCR) | payer OTHER, SELFPAY ==
--- NOTE | 2023-01-27 10:32 | N.ONRD TS_ITS ---
Radiation OncologyTreatment Summary Patient Name: Brian Russo Date of : 1950 Date of Service: 01/27/2023 Attending Physician: Petros Hylton M.D. Brian Russo has completed definitive thoracic radiotherapy for the management of a clinical stage IIB (T1cN1) non-small cell lung cancer. He was evaluated at the [facility]'s Emergency Department for dyspnea in September. A chest radiograph demonstrated a 2.3 cm right upper-lobe nodule. A CT angiogram identified a right-upper lobe nodule measuring 2.4 cm, a right hilar lymph node measuring 1.5 cm, and severe emphysema. A PET scan ordered on October 22, 2022 confirmed hypermetabolic activity within the right upper-lobe lesion (SUV 16.2) and right hilar lymph node (SUV 5). A navigational bronchoscopy with endobronchial ultrasound-guided biopsy was performed on November 15, 2022 by Celso Justin M.D. 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 PD-L1 expression demonstrated a TPS of less than 1%. An MRI of the brain did not identify metastatic disease. Thoracic radiation therapy was delivered between the dates of December 15, 2022 through January 27, 2023. A prescribed dose of 60 Gy was delivered in 30 fractions encompassing 44 elapsed days. The right upper-lobe mass and right hilar lymphadenopathy were treated utilizing an intensity modulated radiotherapy plan with a step and shoot treatment technique. The plan required eight gantry angles (10???, 30???, 180???, 210???, 2400???, 280???, 310???, and 340???) replicating a partial arc. The collimator rotation was 0???. The field sizes spanned between 10.1 cm x 8 cm to 14.1 cm x 8 cm. The SSD measured a minimum of 87.1 cm to a maximum of 93 cm. The ports delivered 151 MU, 152 MU, 109 MU, 106 MU, 131 MU, 104 MU, 108 MU, and 129 MU corresponding to the gantry angles described. All treatments were performed with the yoonew linear accelerator and an isocentric technique. The dose was calculated by Anisotropic Analytic Algorithm. A photon energy of 6 MV was prescribed with the plan normalized to deliver 100% of the prescription dose to 95% of the planning target volume. He was prescribed carboplatin (AUC 2) and paclitaxel (50 mg/m???) weekly during therapy under the supervision of Matias Mccord M.D (December 15, 2022 through January 05, 2023). Signed by: Dr. Petros Hylton 01/27/2023 10:30:51 AM
== END 2023-02-03 23:59 | disposition home or self-care (01) ==
LOC: ONCMED 09:22
PROVIDERS: PCP Family Medicine; Visit Provider Radiology Radiation Oncology
DX: Z51.0 Encounter for antineoplastic radiation therapy (principal); C34.11 Malignant neoplasm of upper lobe, right bronchus or lung; C77.1 Secondary and unspecified malignant neoplasm of intrathoracic lymph nodes; J43.9 Emphysema, unspecified; Z87.891 Personal history of nicotine dependence; Z79.899 Other long term (current) drug therapy; Z95.828 Presence of other vascular implants and grafts
CPT/HCPCS: 77014; 77336; 77386; 77427

== ENCOUNTER 2023-02-13 10:14 | Outpatient (CLI) | payer OTHER, SELFPAY ==
--- NOTE | 2023-02-13 10:30 | CT_ITS ---
WS: [id number] CT chest w con* [id number] HISTORY: assess treatment response TECHNIQUE: Axial imaging performed through the thorax. Coronal and sagittal reformats are submitted. All CT scans at [facility] use at least one of these dose optimization techniques: automated exposure control; mA and/or kV adjustment per patient size (includes targeted exams where dose is mat ched to clinical indication); or iterative reconstruction. CONTRAST: Omnipaque 350; 100 mL IV. DLP: 185.12 mGy.cm COMPARISON: 10/04/2022 and 11/11/2022 Lungs and central airway: Significant improvement in the RIGHT upper lobe pulmonary neoplasm since 11/11/2022. Residual linear increased soft tissue measuring 12 x 8 mm. This compares to a prior measureme nt of 35 x 22 mm. Stable 3 mm nodule in the posterior RIGHT lower lobe, image 34 of series 5. Chronic emphysema with hyperexpansion. Pleura: Normal. No pleural effusion. Heart and pericardium: Normal size heart with no pericardial effusion. Mediastinum and connie: Previously described positive RIGHT hilar lymph node has significantly decrease d in size now measuring 8 mm at its maximum diameter. No new or increasing hilar or mediastinal adeno erma. Vessels: Moderate atherosclerosis aorta. Normal size pulmonary artery. Chest wall and lower neck: LEFT subclavian Mediport. Upper abdomen: Small hiatal hernia. No adrenal mass. Visualized liver is normal. Osseous structures: T5 compression fracture with vertebroplasty. Mild anterior wedging of T3. CT/CT chest w con* [id number] IMPRESSION: 1. Significant improvement in the RIGHT upper lobe pulmonary neoplasm 11/11/2022 . Minimal residual post treatment soft tissue remains measuring 12.8 mm. 2. Decrease in size of the RIGHT hilar lymph node that was positive on PET/CT. No new or increasing size of lymph nodes.
[2023-02-13] MEDS: iohexol 350 mg/mL 500 mL Btl (per mL) IV (10:48)
== END 2023-02-13 10:15 | disposition home or self-care (01) ==
PROVIDERS: PCP Family Medicine; Visit Provider Nurse Practitioner Family
DX: C34.90 Malignant neoplasm of unspecified part of unspecified bronchus or lung (principal)
CPT/HCPCS: 71260; Q9967

== ENCOUNTER 2023-02-27 10:25 | Oncology outpatient (recurring) (ONCR) | payer OTHER, SELFPAY ==
[2023-02-27 10:40] VITALS: BMI 19.2
[2023-02-27 10:41] VITALS: BP 126/63; PULSE 98; RESP 18; TEMP 36.6; O2SAT 95
[2023-02-27 10:52] LABS: Basophils % 0.4 %; Eosinophils # 0.1 10^3/uL (0.0-0.8); Eosinophils % 1.2 %; Hematocrit 36.6 % (42.0-52.0); Hemoglobin 12.5 g/dL (11.7-16.6); Lymphocytes % 12.7 %; Mean Corpuscular HGB Conc 34.2 g/dL (30.0-36.0); Mean Corpuscular Hemoglobin 33.4 pg (28.0-34.0); Mean Corpuscular Volume 97.9 fl (80-94); Mean Platelet Volume 8.4 fL (7.4-10.4); Monocytes # 0.5 10^3/uL (0.2-0.9); Neutrophils % 78.3 %; Nucleated Red Blood Cells % 0 %; Platelet Count 172 10^3/cmm (130-400); Red Blood Count 3.74 10^6/uL (4.1-5.3); Red Cell Distribution Width 13.7 % (12.1-15.1); White Blood Count 7.7 10^3/uL (4.0-10.0)
[2023-02-27 11:34] LABS: Alanine Aminotransferase 17 U/L (0-41); Albumin Level 3.8 g/dL (3.5-5.2); Alkaline Phosphatase 62 U/L (40-130); Anion Gap 11.6 (5-19); Aspartate Amino Transferase 16 U/L (0-40); Blood Urea Nitrogen 9 mg/dL (8-23); Carbon Dioxide 27 mmol/L (22-29); Chloride 100 mmol/L (98-107); Globulin 1.8 g/dL (1.3-4.6); Glucose 140 mg/dL (65-115); Osmolality Calculated 281 mOsm/kg (285-295); Potassium 3.6 mmol/L (3.5-5.1); Sodium 135 mmol/L (136-145); Thyroid Stimulating Hormone 0.41 uIU/mL (0.27-4.20); Total Bilirubin 0.2 mg/dL (0.15-1.2); Total Protein 5.6 g/dL (6.6-8.7)
--- NOTE | 2023-02-27 13:03 | ONCRAD EPV_ITS ---
Radiation Oncology Established Patient Visit Patient: Karan Torres [id number] : 1950 Age: 72 Sex: Male Dictated by: Da Larson Date of Service: 02/27/2023 Referring Physician(s) : Diagnosis: C34.10 - Malignant neoplasm of upper lobe, unspecified bronchus or lung, Diagnosed 11/15/2022 (Active) Stage IIB, T1c, N1, M0 Radiotherapy to Date: Course: Lung 2022, Treatment Site: [facility] - Rt Lung, Ref. ID: [id number], Energy: 6X, Dose/Fx (cGy): 200, #Fx: 30 / 30, Dose Correction (cGy): 0, Total Dose (cGy): 6,000, Date: 12/15/2022 -01/27/23, Elapsed Days: 43 Current History: Mr. Russo returns for follow-up. He completed chemotherapy and radiation for non-small cell lung cancer on 01/27/2023. He had a CT scan of the chest 02/13/2023. It showed an excellent response with the primary tumor measurements going from 35 x 22 mm to 12 x 8 mm. The positive hilar node measurements went from 15 mm to 8 mm. No new disease was detected. Mr. Russo's general condition is about the same. He is debilitated by chronic back pain. He is not on O2 but frequently uses a nebulizer. His cough has worsened since completing radiation but he has not had any purulent sputum production or hemoptysis. Fatigue persists. Appetite is not good. He has no dysphagia or odontophagia. He has chronic spine pain from osteoporosis and compression fractures but he has no new bone pain. Current Medications: Allergies: Latex and Tetracycline. Current Complaints / Review of Systems: . Vital Signs: Performed on 02/27/2023 10:32 AM BMI - 16.139 kg/m2 (low), Height - 72 in, Weight - 119 lbs, Temperature - 98 f, Pulse - 98 /min, Respiration - 18 /min, O2 Sat - 95 % (low), Pain - 4, Fatigue - 0 and BP - 126/ 63 mm(hg)(/low). Physical Exam: Alert, oriented, no acute distress. He appears fatigued and chronically ill. Neck: Supple. No masses. No cervical or supraclavicular lymphadenopathy. Lungs: Clear to percussion. On auscultation no rales, rhonchi, or wheezes. Breath sounds were diminished bilaterally. Heart: Regular rhythm. No murmur or gallop. Abdomen: No distention. No organomegaly, mass, or tenderness. Musculoskeletal kyphosis due to osteoporosis. He has tenderness to percussion along the entire course of the spine. Performance Status: KPS 40 Lab: None pending. Pathology: Primary, c34.10 - malignant neoplasm of upper lobe, unspecified bronchus or lung, Diagnosed 11/15/2022 (active) stage iib, t1c, n1, m0. Imaging: See HPI Excellent response on CT. Measurements noted in history. No new disease. Impression: I discussed the good response on CT with the patient and his ex-. I suggested proceeding on with immunotherapy. The patient, at the insistence of his ex-, is getting a second opinion about immunotherapy at [facility] in [place]. The appointment has not yet made. I told the patient it may be a mistake not to proceed with the immunotherapy, explaining he may lose the benefit of the good response to chemotherapy and radiation. He will see Dr. Drew later today. Signed by: 02/27/2023 1:02:33 PM <<Signature on File>> Time spent with patient: CPT Code: CPT Code:
== END 2023-03-06 23:59 | disposition home or self-care (01) ==
PROVIDERS: Internal Medicine Medical Oncology; PCP Family Medicine; Visit Provider Radiology Radiation Oncology
DX: C34.11 Malignant neoplasm of upper lobe, right bronchus or lung; C77.1 Secondary and unspecified malignant neoplasm of intrathoracic lymph nodes; J43.9 Emphysema, unspecified; Z87.891 Personal history of nicotine dependence; Z79.899 Other long term (current) drug therapy; Z53.9 Procedure and treatment not carried out, unspecified reason
CPT/HCPCS: 36591; 80053; 84443; 85025; 99024; 99214; J1642

== ENCOUNTER → 2023-03-28 14:25 | Outpatient (BNVA) | payer OTHER, SELFPAY | PROVIDERS: PCP Family Medicine; Visit Provider Internal Medicine Pulmonary Disease | DX: C34.11 Malignant neoplasm of upper lobe, right bronchus or lung (principal); J43.9 Emphysema, unspecified; Z87.891 Personal history of nicotine dependence; Z99.81 Dependence on supplemental oxygen | CPT/HCPCS: 99214 ==

== ENCOUNTER 2023-04-13 12:00 | Oncology outpatient (recurring) (ONCR) | payer OTHER, SELFPAY ==
[2023-04-12 14:54] VITALS: BMI 17.6
[2023-04-12 14:55] VITALS: BP 144/74; PULSE 77; RESP 18; TEMP 36.8; O2SAT 96
[2023-04-12 15:09] LABS: Basophils % 0.4 %; Eosinophils % 0.1 %; Hematocrit 42.4 % (37-53); Lymphocytes # 0.7 10^3/uL (0.8-4.8); Lymphocytes % 6.7 %; Mean Corpuscular HGB Conc 34.7 g/dL (30-55); Mean Corpuscular Hemoglobin 32.6 pg (27-33); Mean Platelet Volume 8.3 fL (7.4-10.4); Monocytes # 0.3 10^3/uL (0.2-0.9); Monocytes % 2.5 %; Neutrophils % 89.9 %; Nucleated Red Blood Cells % 0 %; Platelet Count 196 10^3/cmm (157-399); Red Blood Count 4.51 10^6/uL (3.85-5.65); Red Cell Distribution Width 11.2 % (12.1-15.1); White Blood Count 10.01 10^3/uL (3.29-11.43)
[2023-04-12 15:38] LABS: Alanine Aminotransferase 24 U/L (0-41); Albumin Level 4.2 g/dL (3.5-5.2); Alkaline Phosphatase 60 U/L (40-130); Anion Gap 13.4 (5-19); Aspartate Amino Transferase 19 U/L (0-40); Blood Urea Nitrogen 11 mg/dL (8-23); Calcium 9.4 mg/dL (8.5-10.5); Carbon Dioxide 28 mmol/L (22-29); Chloride 104 mmol/L (98-107); Creatinine Clr Calc Pharmacy 58.5472; Glucose 99 mg/dL (65-115); Immunoglobulin IGG 496 mg/dL (700-1600); Osmolality Calculated 291 mOsm/kg (285-295); Potassium 4.4 mmol/L (3.5-5.1); Sodium 141 mmol/L (136-145); Thyroid Stimulating Hormone 0.27 uIU/mL (0.27-4.20); Total Bilirubin 0.2 mg/dL (0.15-1.2); Total Protein 6.2 g/dL (6.6-8.7)
[2023-04-12 15:54] LABS: Hepatitis A Antibody IgM Non-Reactive (Nonreactive); Hepatitis B Core AB, Total Reactive (Nonreactive); Hepatitis B Surface Antigen Non-Reactive (Nonreactive); Hepatitis C Virus Antibody Non-Reactive (Nonreactive)
[2023-04-12 17:02] LABS: Hepatitis B Surface AB > 1000.0 (11.5-1000)
[2023-04-13] MEDS: sodium chloride 0.9% 250 ML 75 ML IV (12:44)
[2023-04-13] MEDS: durvalumab 1,500 MG in sodium chloride 0.9% 250 ML 280 MG IV (12:45)
[2023-04-13 14:12] VITALS: BP 142/67; PULSE 73; RESP 18; TEMP 36.2; O2SAT 96
== END 2023-04-13 23:59 | disposition home or self-care (01) ==
PROVIDERS: Internal Medicine Medical Oncology; PCP Family Medicine; Visit Provider Specialist
DX: Z51.11 Encounter for antineoplastic chemotherapy; C34.11 Malignant neoplasm of upper lobe, right bronchus or lung; Z51.0 Encounter for antineoplastic radiation therapy; Z92.3 Personal history of irradiation; C77.1 Secondary and unspecified malignant neoplasm of intrathoracic lymph nodes
CPT/HCPCS: 36591; 80053; 82784; 84443; 85025; 86705; 86706; 86709; 86803; 87340; 96413; 99214; J1642; J7050; J9173

== ENCOUNTER 2023-05-07 01:05 | Emergency (ER) | payer OTHER, SELFPAY ==
[2023-05-07 01:11] VITALS: BP 157/79; PULSE 80; RESP 22; TEMP 36.7; O2SAT 97; BMI 17.2
--- NOTE | 2023-05-07 01:35 | XRR_ITS ---
PROCEDURE INFORMATION: Exam: XR Chest Exam date and time: 05/07/2023 1:42 AM Age: 73 years old Clinical indication: Shortness of breath; Prior surgery; Surgery date: 6+ months; Surgery type: Port; Patient HX: Lung cancer, copd; Additional info: SOB TECHNIQUE: Imaging protocol: Radiologic exam of the chest. Views: 1 view. COMPARISON: CT chest w con* [id number] 02/13/2023 10:36 AM FINDINGS: Tubes, catheters and devices: Left-sided port. Lungs: Lungs are hyperexpanded. No consolidation. Pleural spaces: Unremarkable. No pleural effusion. No pneumothorax. Heart/Mediastinum: Unremarkable. No cardiomegaly. Advanced diffuse vascular calcification noted. Bones/joints: Upper to midthoracic kyphoplasty. XR/XR chest 1V portable [id number] IMPRESSION: No acute findings.
--- NOTE | 2023-05-07 01:50 | ECG_ITS ---
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 Measurements Intervals [place] Rate: 75 P: 85 OR: 145 QRS: 87 QRSD: 95 T: 85 QT: 393 QTc: 439 Interpretive Statements SINUS RHYTHM WITH OCCASIONAL VENTRICULAR PREMATURE COMPLEXES WITH OCCASIONAL SUPRAVENTRICULAR PREMATURE COMPLEXES INCOMPLETE RIGHT BUNDLE BRANCH BLOCK [90+ ms QRS DURATION, TERMINAL R IN V1/V2, 40+ ms S IN I/aVL/V4/V5/V6] Compared to ECG 10/04/2022 02:16:50 Ventricular premature complex(es) now present Incomplete right bundle-branch block now present Sinus tachycardia no longer present Electronically Signed On 05-07-2023 11:09:11 CDT by Gabe Ruff M.D. [email or web address]/store/[id number]
[2023-05-07 02:06] LABS: ABG PCO2 41.2 mmHg (35-45); ABG PH Result 7.45 (7.35-7.45); Arterial Blood Gas Hematocrit 45.9 % (42-52); Base Excess ABG 4.4 mmol/L (-2.0-2.0); Blood Gas Sample Site Brachial, right; Blood Gas Sample Type Arterial; Carboxyhemoglobin 1.8 %THgb (0.4-20.1); HCO3 ABG 28.8 mmol/L (22-26); HGB O2 Sat 89.9 % (95-100); Methemoglobin 0.5 % (0.4-1.5); PO2 ABG 49.7 mmHg (80.0-100.0)
[2023-05-07 02:06] LABS: Basophils % 0.6 %; Eosinophils % 0.4 %; Lymphocytes % 13.6 %; Mean Corpuscular Hemoglobin 32.6 pg (27-33); Mean Corpuscular Volume 95.7 fl (82-101); Mean Platelet Volume 8.8 fL (7.4-10.4); Monocytes # 0.5 10^3/uL (0.2-0.9); Monocytes % 6.4 %; Neutrophils # 5.67 10^3/uL (1.8-7.7); Neutrophils % 78.9 %; Nucleated Red Blood Cells % 0 %; Platelet Count 203 10^3/cmm (157-399); Red Blood Count 4.39 10^6/uL (3.85-5.65); Red Cell Distribution Width 11.3 % (12.1-15.1); White Blood Count 7.19 10^3/uL (3.29-11.43)
--- NOTE | 2023-05-07 02:15 | ED_ITS ---
HPI - SOB/Dyspnea General: Chief Complaint: Shortness of Breath/Dyspnea Stated Complaint: SOB Time Seen by Provider: 05/07/23 01:11 History of Present Illness: HPI Narrative: 73-year-old male was a history of COPD. He is on multiple medications for this. He presents with shortness of breath worsening over about 3 days. He has been using his albuterol at home with some relief. Cough with white sputum production. He also has a history of lung cancer that has been treated with chemo therapy and radiation therapy. He denies fever. He denies leg swelling. He denies significant chest pain. MD elicited complaint: shortness of breath and cough Pertinent past history: COPD Associated symptoms: Deny abdominal pain, chest pain, fever(s), nausea, palpitations or vomiting Related Data: Home oxygen amount: none Review of Systems Const: Denies: fever(s) or chills ENMT: Denies: throat pain Card: Denies: chest pain or palpitations Resp: Reports: dyspnea and productive cough GI: Denies: abdominal pain, nausea or vomiting Skin/Breast: Denies: rash Psych: Reports: anxiety PFSH ED PFSH: Medical History Compression fracture of thoracic vertebra COPD (chronic obstructive pulmonary disease) Dyslipidemia GERD (gastroesophageal reflux disease) HTN (hypertension), benign Non-small cell lung cancer Osteoporosis PAD (peripheral artery disease) Surgical History H/O circumcision H/O colonoscopy 2014 H/O esophagogastroduodenoscopy History of bronchoscopy (11/15/22) Navigational bronchoscopy/EBUS History of cataract extraction History of hip surgery History of kyphoplasty (03/04/22) T5 kyphoplasty Port-A-Cath in place S/P AAA (abdominal aortic aneurysm) repair Family History Other CAD (coronary artery disease) Cancer Diabetes Hypertension Stroke Denies family history of Anesthesia complication Bleeding disorder Social History Smoking and tobacco status: former smoker Quit status (tobacco): has quit using tobacco Year quit tobacco: 2019 Former quit date comment: 1.5 ppd X 54 years, Alcohol intake: former Substance/Drug Use: never Household members: significant other Marital status: Single Current occupational status: retired Physical Exam Const: COMMON NORMALS: no acute distress GENERAL APPEARANCE: cooperative; not ill appearing and not frail appearing HENMT: COMMON NORMALS: normocephalic, atraumatic and Normal external nose present HEAD & SCALP: normocephalic and atraumatic FACE & SINUS: normal facial exam and face symmetric NOSE: Normal external nose present Eye: COMMON NORMALS: Equal, round and reactive pupils present and EOMs intact bilaterally PUPIL: Yes Equal, round and reactive pupils present Neck/C-Spine: GENERAL: Yes trachea midline Chest: CHEST: Yes Symmetrical chest wall rise Resp: COMMON NORMALS: clear to auscultation bilaterally EFFORT & INSPECTION: Yes tachypneic and Yes labored AUSCULTATION: clear to auscultatio n bilaterally Cardio: COMMON NORMALS: regular rate and regular rhythm RATE: regular rate RHYTHM: regular rhythm GI: COMMON NORMALS: Normal to inspection, nondistended, normoactive bowel sounds present Extremity: COMMON NORMALS: no pedal edema Neuro: BHAVANI COMA SCALE: document GCS findings [place] coma scale eye opening: Spontaneous [place] coma scale verbal response: Orientated [place] coma scale motor response: Obey commands [place] coma scale total score: 15 SENSORY EXAM: Yes extremities (intact) Psych: COMMON NORMALS: speech normal SPEECH: Yes normal speech Skin: COMMON NORMALS: no rashes or lesions noted GENERAL SKIN EXAM: no r ashes or lesions noted Course Vital Signs: Vital signs: Vital Signs Temperature 98.0 F 05/07/23 01:11 Pulse Rate 80 05/07/23 01:11 Respiratory Rate 22 H 05/07/23 01:11 Blood Pressure 157/79 05/07/23 01:11 Pulse Oximetry 97 05/07/23 01:11 Oxygen Delivery Me thod Room Air 05/07/23 01:11 MDM - SOB/Dyspnea Medical Decision Making Patient feeling improved after nebulizer treatment and the ambulance, and Solu- Medrol here. His chest x-ray is nonacute. His laboratory is not remarkable. Appears to be an exacerbation of COPD. Blood gas shows mild hypoxia, although his saturations have been above 94% on room air here. He is much more comfortable. He would like to go home. He will be allowed such, with close outpatient follow-up. Treatment for COPD exacerbation. Lab Data 05/07/23 01:49 05/07/23 01:49 Labs/Radiology: Radiology Impressions Chest X-Ray 05/07/23 01:35 IMPRESSION: No acute findings. Laboratory Results WBC 7.19 10^3/uL (3.29-11.43) 05/07/23 01:49 RBC 4.39 10^6/uL (3.85-5.65) 05/07/23 01:49 Hgb 14.30 g/dL (11.27-16.99) 05/07/23 01:49 Hct 42.0 % (37-53) 05/07/23 01:49 MCV 95.7 fl (82-101) 05/07/23 01:49 MCH 32.6 pg (27-33) 05/07/23 01:49 MCHC 34.0 g/dL (30-55) 05/07/23 01:49 RDW 11.3 % (12.1-15.1) L 05/07/23 01:49 Plt Count 203 10^3/cmm (157-399) 05/07/23 01:49 MPV 8.8 fL (7.4-10.4) 05/07/23 01:49 Neut % (Auto) 78.9 % 05/07/23 01:49 Lymph % (Auto) 13.6 % 05/07/23 01:49 [place] % (Auto) 6.4 % 05/07/23 01:49 Eos % (Auto) 0.4 % 05/07/23 01:49 Baso % (Auto) 0.6 % 05/07/23 01:49 Neut # (Auto) 5.67 10^3/uL (1.8-7.7) 05/07/23 01:49 Lymph # (Auto) 1.0 10^3/uL (0.8-4.8) 05/07/23 01:49 [place] # (Auto) 0.5 10^3/uL (0.2-0.9) 05/07/23 01:49 Eos # (Auto) 0.0 10^3/uL (0.0-0.8) 05/07/23 01:49 Baso # (Auto) 0.0 10^3/uL (0.0-0.1) 05/07/23 01:49 Nucleated RBC % (auto) 0 % 05/07/23 01:49 Nucleated RBCs # 0.0 /100WBC 05/07/23 01:49 Specimen Type Arterial 05/07/23 02:00 Sample Site Brachial, right 05/07/23 02:00 ABG pH 7.45 (7.35-7.45) 05/07/23 02:00 ABG pCO2 41.2 mmHg (35-45) 05/07/23 02:00 ABG pO2 49.7 mmHg (80.0-100.0) L 05/07/23 02:00 ABG HCO3 28.8 mmol/L (22-26) H 05/07/23 02:00 ABG Base Excess 4.4 mmol/L (-2.0-2.0) H 05/07/23 02:00 William Test N/a 05/07/23 02:00 Hematocrit 45.9 % (42-52) 05/07/23 02:00 Hgb O2 Saturation 89.9 % (95-100) L 05/07/23 02:00 Carboxyhemoglobin 1.8 %THgb (0.4-20.1) 05/07/23 02:00 Methemoglobin 0.5 % (0.4-1.5) 05/07/23 02:00 Total Hemoglobin 15.0 g/dL (14-18) 05/07/23 02:00 O2 Delivery Device None 05/07/23 02:00 FiO2 21.0 % 05/07/23 02:00 Potato Chip Processing Supervisor ID Ben 05/07/23 02:00 Sodium 139 mmol/L (136-145) 05/07/23 01:49 Potassium 3.9 mmol/L (3.5-5.1) 05/07/23 01:49 Chloride 101 mmol/L (98-107) 05/07/23 01:49 Carbon Dioxide 26 mmol/L (22-29) 05/07/23 01:49 Anion Gap 15.9 (5-19) 05/07/23 01:49 BUN 9 mg/dL (8-23) 05/07/23 01:49 Creatinine 0.8 mg/dL (0.7-1.2) 05/07/23 01:49 GFR Calculation Not Reportable 05/07/23 01:49 Glucose 118 mg/dL (65-115) H 05/07/23 01:49 Calculated Osmolality 288 mOsm/kg (285-295) 05/07/23 01:49 Lactic Acid 2.4 mmol/L (0.5-2.2) H 05/07/23 01:49 Calcium 9.2 mg/dL (8.5-10.5) 05/07/23 01:49 Total Bilirubin 0.2 mg/dL (0.15-1.2) 05/07/23 01:49 AST 19 U/L (0-40) 05/07/23 01:49 ALT 21 U/L (0-41) 05/07/23 01:49 Alkaline Phosphatase 65 U/L (40-130) 05/07/23 01:49 NT-Pro-B Natriuret Pep 160 pg/mL (0-125) H 05/07/23 01:49 Total Protein 6.4 g/dL (6.6-8.7) L 05/07/23 01:49 Albumin 4.2 g/dL (3.5-5.2) 05/07/23 01:49 Globulin 2.2 g/dL (1.3-4.6) 05/07/23 01:49 All radiology interpretation(s) finalized by discharge Discharge Plan Discharge Patient Disposition: Home Clinical Impression: Acute exacerbation of chronic obstructive airways disease Condition: Stable Prescriptions: New prednisone 50 mg tablet 50 mg PO DAILY 5 Days Qty: 5 0RF levofloxacin 750 mg tablet 750 mg PO DAILY 5 Days Qty: 5 0RF No Action albuterol sulfate 2.5 mg /3 mL (0.083 %) solution for nebulization 2.5 mg inhalation Q6H PRN (Reason: Dyspnea) cholecalciferol (vitamin D3) 50 mcg (2,000 unit) capsule 50 mcg PO DAILY multivitamin Tablet 1 tab PO DAILY rosuvastatin 20 mg tablet 10 mg PO DAILY prednisone 10 mg tablet 10 mg PO DAILY lidocaine 5 % adhesive patch,medicated 1 patch topical DAILY PRN (Reason: Pain) Rx Instructions: leave on most painful area for up to 12 hrs azithromycin 250 mg tablet 250 mg PO .3 times weekly Qty: 30 3RF Rx Instructions: Monday, Monday, and Monday Breztri Aerosphere 160-9-4.8 mcg/actuation HFA aerosol inhaler 2 inh inhalation BID Qty: 10.7 3RF lorazepam 1 mg tablet 0.5 - 1 mg PO Q6H PRN (Reason: Severe Nausea) Qty: 30 3RF prochlorperazine maleate [Compazine] 10 mg tablet 10 mg PO Q4H PRN (Reason: Mild Nausea) Qty: 30 3RF lidocaine HCl 2 % solution 5 ml PO QID PRN (Reason: pain) Qty: 80 3RF Rx Instructions: add [id number], [id number] for magic mouthwash, swish and swallow dronabinol 5 mg capsule 5 mg PO BID Qty: 60 0RF Rx Instructions: administer before lunch and evening meal/dinner benzonatate 100 mg capsule 100 mg PO BID PRN (Reason: cough) Qty: 20 3RF hydrocodone-acetaminophen 10-325 mg tablet 1 tab PO QID PRN (Reason: pain) 30 Days Qty: 120 0RF omeprazole 20 mg Tablet,Delayed Release (Dr/Ec) 20 mg PO DAILY bee pollen 1,000 mg Tablet,Chewable 1,000 mg PO BID prochlorperazine maleate [Compazine] 10 mg tablet 10 mg PO Q4H PRN (Reason: Mild Nausea) Qty: 30 3RF lorazepam 1 mg tablet 0.5 - 1 mg PO Q6H PRN (Reason: Severe Nausea) Qty: 30 3RF Discharge Orders: Discharge ED (Routine); Ordered 05/07/23 Ordered By: Ritesh Bryan Referrals: Ruthy Piña MD [Primary Care Provider] - 1-3 days Patient Instructions: COPD (Chronic Obstructive Pulmonary Disease) (ED) Activity Restrictions/Additional Instructions: Return for worsening symptoms despite treatment. Coding Level of Care Code ED Finishing Manager for Brandy Reece
[2023-05-07 02:24] LABS: Lactic Sepsis W/Reflex 2.4 mmol/L (0.5-2.2)
[2023-05-07 02:31] LABS: Alanine Aminotransferase 21 U/L (0-41); Albumin Level 4.2 g/dL (3.5-5.2); Alkaline Phosphatase 65 U/L (40-130); Anion Gap 15.9 (5-19); Aspartate Amino Transferase 19 U/L (0-40); Blood Urea Nitrogen 9 mg/dL (8-23); Calcium 9.2 mg/dL (8.5-10.5); Carbon Dioxide 26 mmol/L (22-29); Chloride 101 mmol/L (98-107); Globulin 2.2 g/dL (1.3-4.6); Glucose 118 mg/dL (65-115); NT Pro B Type Natriuretic Pept 160 pg/mL (0-125); Osmolality Calculated 288 mOsm/kg (285-295); Potassium 3.9 mmol/L (3.5-5.1); Sodium 139 mmol/L (136-145); Total Bilirubin 0.2 mg/dL (0.15-1.2); Total Protein 6.4 g/dL (6.6-8.7)
[2023-05-07] MEDS: methylPREDNISolone sod succ 125 MG in water for injection-sterile 2 ML 24 MG IVP (02:36)
[2023-05-07 03:43] LABS: Reflex Lactate Order REFLEX LACTIC ORDERD
--- NOTE | 2023-05-07 04:35 | PC.NURSE ---
Data for patient vital signs did not correctly save.
== END 2023-05-07 04:00 | disposition home or self-care (01) ==
PROVIDERS: Emergency Provider Emergency Medicine; PCP Family Medicine
DX: J44.1 Chronic obstructive pulmonary disease with (acute) exacerbation (principal); Z87.891 Personal history of nicotine dependence; J44.9 Chronic obstructive pulmonary disease, unspecified; E78.5 Hyperlipidemia, unspecified; I10 Essential (primary) hypertension; Z85.118 Personal history of other malignant neoplasm of bronchus and lung
CPT/HCPCS: 36415; 36600; 71045; 80053; 82805; 83605; 83880; 85025; 87040; 93005; 96365; 96366; 99285; J2930

== ENCOUNTER 2023-05-09 08:25 | Inpatient (IN) | payer OTHER, SELFPAY ==
[2023-05-09] VITALS (22 sets, daily range): BP systolic 121–153; BP diastolic 66–95; PULSE 67–94; RESP 16–85; TEMP 36.4–37.2; O2SAT 93–98; BMI 17.2
--- NOTE | 2023-05-09 08:30 | ECG_ITS ---
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 Measurements Intervals [place] Rate: 99 P: 70 [place]: 126 QRS: 84 QRSD: 92 T: 83 QT: 331 QTc: 425 Interpretive Statements SINUS RHYTHM WITH OCCASIONAL SUPRAVENTRICULAR PREMATURE COMPLEXES Compared to ECG 05/07/2023 01:50:16 Ventricular premature complex(es) no longer present Incomplete right bundle-branch block no longer present Electronically Signed On 05-09-2023 12:56:24 CDT by Doris Albert M.D. [email or web address]store/OM/[id number]
--- NOTE | 2023-05-09 08:30 | XRR_ITS ---
PROCEDURE INFORMATION: Exam: XR Chest Exam date and time: 05/09/2023 8:36 AM Age: 73 years old Clinical indication: Cough and dyspnea; Prior surgery; Surgery date: 6+ months; Surgery type: Port; Patient HX: HX of lung cancer; Additional info: Dyspnea/cough.No history of trauma or recent surgery is provided. TECHNIQUE: Imaging protocol: Radiologic exam of the chest. 1image(s) are provided. Views: 1 view. COMPARISON: 1. CR (CHEST, ) 05/07/2023 1:[address] chest w con* [id number] 02/13/2023 10:36 AM FINDINGS: Tubes, catheters and devices: The left port catheter appears similar overall. Lungs: No lobar consolidation is appreciated. There is chronic air trapping appearance similar. Pleural spaces: No pneumothorax or pleural effusion is appreciated. Heart/Mediastinum: The cardiomediastinal silhouette is within normal. No cardiac decompensation is appreciated. Vasculature: There is some aortic stent graft type material demonstrated at the upper abdomen level. Diaphragm: The hemidiaphragms are symmetric. Bones/joints: Osseous alignment is maintained.No interval displaced fracture or dislocation is appreciated. There is some sclerosis although could also be seen with previous intervention about the upper thoracic spine level along with adjacent atherosclerotic calcific averaging. There are some chronic appearing rib deformities present. Soft tissues: No radiopaque foreign body or subcutaneous emphysema is appreciated. Other findings: No other significant interval changes are appreciated. XR/XR chest 1V portable [id number] IMPRESSION: There is chronic air trapping appearance similar overall with no lobar consolidation or appreciated.No interval acute cardiopulmonary changes are appreciated.
--- NOTE | 2023-05-09 08:31 | ED_ITS ---
HPI - SOB/Dyspnea General: Chief Complaint: Shortness of Breath/Dyspnea Stated Complaint: SOB Time Seen by Provider: 05/09/23 08:26 Source: patient Mode of arrival: ambulatory History of Present Illness: HPI Narrative: 73-year-old male presents to the emergency room complaining of shortness of breath. He has a known history of severe COPD he has a recently diagnosed lung cancer he is not on any chronic oxygen he did use a nebulizer this morning and received a DuoNeb in route he has had increasing shortness of breath slight increased production cough but no change in character of sputum. He is on immunotherapy which was recently stopped for his cancer. MD elicited complaint: shortness of breath and cough Pertinent past history: COPD and other (Lung cancer non-small cell) Exacerbating factors: exertion and coughing Relieving factors: rest and bronchodilators Known history of: COPD and other (Lung cancer) Associated symptoms: Reports chest congestion, cough and other; Deny abdominal pain, chest pain, diaphoresis, dizziness, extremity pain, fever(s), hemoptysis, lightheadedness, myalgias, nausea, orthopnea, palpitat ions, paresthesias, polydipsia, polyuria, rash, sense of impending doom, syncope or vomiting Treatment prior to arrival: bronchodilator Review of Systems Const: Denies: fever(s), chills, fatigue, malaise or diaphoresis ENMT: Denies: throat pain, ear or mastoid pain, nasal discharge or nasal congestion Card: Denies: chest pain, palpitations, lightheadedness, syncope or orthopnea Resp: Reports: dyspnea, productive cough, wheezing and chest congestion; Denies: hemoptysis GI: Denies: abdominal pain, nausea or vomiting : Denies: flank pain, dysuria, urinary frequency or urinary urgency Musc: Denies: extremity pain Skin/Breast: Denies: rash or pruritus Neuro: Denies: dizziness Endo: Denies: polyuria or polydipsia PFSH ED PFSH: Medical History Compression fracture of thoracic vertebra COPD (chronic obstructive pulmonary disease) Dyslipidemia GERD (gastroesophageal reflux disease) HTN (hypertension), benign Hyperlipidemia Non-small cell lung cancer Osteoporosis PAD (peripheral artery disease) 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, stage II Surgical History H/O circumcision H/O colonoscopy 2014 H/O esophagogastroduodenoscopy History of bronchoscopy (11/15/22) Navigational bronchoscopy/EBUS History of cataract extraction History of hip surgery History of kyphoplasty (03/04/22) T5 kyphoplasty Port-A-Cath in place S/P AAA (abdominal aortic aneurysm) repair Family History Other CAD (coronary artery disease) Cancer Diabetes Hypertension Stroke Denies family history of Anesthesia complication Bleeding disorder Social History Smoking and tobacco status: former smoker Quit status (tobacco): has quit using tobacco Year quit tobacco: 2019 Former quit date comment: 1.5 ppd X 54 years, Alcohol intake: former Substance/Drug Use: never Household members: significant other Marital status: Single Current occupational status: retired Physical Exam Const: GENERAL APPEARANCE: cooperative and comfortable ORIENTATION/CONSCIOUSNESS: Yes awake, Yes oriented to person, Yes oriented to place and Yes oriented to time HENMT: COMMON NORMALS: normocephalic, atraumatic and hearing grossly normal bilaterally HEAD & SCALP: normocephalic and atraumatic Resp: COMMON NORMALS: normal respiratory effort, No retractions and No use of accessory muscles AUSCULTATION: rhonchi and wheezes Cardio: COMMON NORMALS: regular rate, regular rhythm and No murmurs present (Cardio) RATE: regular rate RHYTHM: regular rhythm GI: COMMON NORMALS: Soft to palpation and No hepatosplenomegaly present AUSCULTATION: Yes normoactive bowel sounds PALPATION: Yes Soft to palpation, No Tenderness to palpation present (GI), No Guarding due to palpation present (GI) and Yes No hepatosplenomegaly present Extremity: COMMON NORMALS: normal to inspection, capillary refill normal, no clubbing, cyanosis or edema, no calf tenderness and no pedal edema Neuro: SENSORIUM/ORIENTATION: Yes oriented to person, Yes oriented to place and Yes oriented to time Skin: COMMON NORMALS: no rashes or lesions noted GENERAL SKIN EXAM: no rashes or lesions noted Course Vital Signs: Vital signs: Vital Signs Temperature 97.9 F 05/10/23 13:55 Pulse Rate 81 05/10/23 13:55 Respiratory Rate 17 05/10/23 13:55 Blood Pressure 107/65 05/10/23 13:55 Pulse Oximetry 96 05/10/23 13:55 Oxygen Delivery Me thod Room Air 05/10/23 12:00 MDM - SOB/Dyspnea Medical Decision Making EKG does not show acute ST elevation troponin elevated. Patient is a mild COPD exacerbation. He has no lungs he able to declined any further treatment he does have localized mediastinal nodes. Discussed with hospitalist will admit he is improved with treatments given here in the emergency room COVID pending. Medical Records I reviewed the patient's medical records. Lab Data I reviewed the patient's lab results. 05/10/23 01:53 05/10/23 01:53 Labs/Radiology: Radiology Impressions Chest X-Ray 05/09/23 08:30 IMPRESSION: There is chronic air trapping appearance similar overall with no lobar consolidation or appreciated.No interval acute cardiopulmonary changes are appreciated. Laboratory Results WBC 13.78 10^3/uL (3.29-11.43) H 05/09/23 08:42 RBC 4.92 10^6/uL (3.85-5.65) 05/09/23 08:42 Hgb 16.00 g/dL (11.27-16.99) 05/09/23 08:42 Hct 47.0 % (37-53) 05/09/23 08:42 MCV 95.5 fl (82-101) 05/09/23 08:42 MCH 32.5 pg (27-33) 05/09/23 08:42 MCHC 34.0 g/dL (30-55) 05/09/23 08:42 RDW 11.3 % (12.1-15.1) L 05/09/23 08:42 Plt Count 221 10^3/cmm (157-399) 05/09/23 08:42 MPV 8.7 fL (7.4-10.4) 05/09/23 08:42 Neut % (Auto) 83.2 % 05/09/23 08:42 Lymph % (Auto) 9.9 % 05/09/23 08:42 [place] % (Auto) 6.4 % 05/09/23 08:42 Eos % (Auto) 0.1 % 05/09/23 08:42 Baso % (Auto) 0.1 % 05/09/23 08:42 Neut # (Auto) 11.47 10^3/uL (1.8-7.7) H 05/09/23 08:42 Lymph # (Auto) 1.4 10^3/uL (0.8-4.8) 05/09/23 08:42 [place] # (Auto) 0.9 10^3/uL (0.2-0.9) 05/09/23 08:42 Eos # (Auto) 0.0 10^3/uL (0.0-0.8) 05/09/23 08:42 Baso # (Auto) 0.0 10^3/uL (0.0-0.1) 05/09/23 08:42 Nucleated RBC % (auto) 0 % 05/09/23 08:42 Nucleated RBCs # 0.0 /100WBC 05/09/23 08:42 Sodium 138 mmol/L (136-145) 05/09/23 08:42 Potassium 3.8 mmol/L (3.5-5.1) 05/09/23 08:42 Chloride 99 mmol/L (98-107) 05/09/23 08:42 Carbon Dioxide 25 mmol/L (22-29) 05/09/23 08:42 Anion Gap 17.8 (5-19) 05/09/23 08:42 BUN 20 mg/dL (8-23) 05/09/23 08:42 Creatinine 1.1 mg/dL (0.7-1.2) 05/09/23 08:42 GFR Calculation Not Reportable 05/09/23 08:42 Glucose 85 mg/dL (65-115) 05/09/23 08:42 Calculated Osmolality 288 mOsm/kg (285-295) 05/09/23 08:42 Calcium 9.0 mg/dL (8.5-10.5) 05/09/23 08:42 Total Bilirubin 0.2 mg/dL (0.15-1.2) 05/09/23 08:42 AST 25 U/L (0-40) 05/09/23 08:42 ALT 26 U/L (0-41) 05/09/23 08:42 Alkaline Phosphatase 66 U/L (40-130) 05/09/23 08:42 Troponin T Baseline 23 ng/L (0-15) H 05/09/23 08:42 Troponin T 120 Minute 55.12 ng/L (0-15) H 05/09/23 10:43 Delta Troponin T 32.12 ABS# (0-10) H* 05/09/23 10:43 Total Protein 6.6 g/dL (6.6-8.7) 05/09/23 08:42 Albumin 4.2 g/dL (3.5-5.2) 05/09/23 08:42 Globulin 2.4 g/dL (1.3-4.6) 05/09/23 08:42 TSH 1.40 uIU/mL (0.27-4.20) 05/09/23 08:42 All radiology interpretation(s) finalized by discharge Discharge Plan Discharge Patient Disposition: Admitted As Inpatient Admit Provider: Yoni uGpta Clinical Impression: Elevated troponin I level, Acute exacerbation of chronic obstructive airways disease, Squamous cell carcinoma of lung, stage II Condition: Stable Discharge Diet: Cardiac Discharge Activity: Increase activity as tolerated Coding Level of Care Code ED 911 Emergency Dispatcher for Brandy Reece
[2023-05-09 08:51] LABS: Basophils % 0.1 %; Eosinophils % 0.1 %; Lymphocytes # 1.4 10^3/uL (0.8-4.8); Lymphocytes % 9.9 %; Mean Corpuscular Hemoglobin 32.5 pg (27-33); Mean Corpuscular Volume 95.5 fl (82-101); Mean Platelet Volume 8.7 fL (7.4-10.4); Monocytes # 0.9 10^3/uL (0.2-0.9); Monocytes % 6.4 %; Neutrophils # 11.47 10^3/uL (1.8-7.7); Neutrophils % 83.2 %; Nucleated Red Blood Cells % 0 %; Platelet Count 221 10^3/cmm (157-399); Red Blood Count 4.92 10^6/uL (3.85-5.65); Red Cell Distribution Width 11.3 % (12.1-15.1); White Blood Count 13.78 10^3/uL (3.29-11.43)
[2023-05-09] MEDS: dexamethasone 10 mg/mL INJ IM (08:59)
[2023-05-09 09:09] LABS: Alanine Aminotransferase 26 U/L (0-41); Albumin Level 4.2 g/dL (3.5-5.2); Alkaline Phosphatase 66 U/L (40-130); Anion Gap 17.8 (5-19); Aspartate Amino Transferase 25 U/L (0-40); Blood Urea Nitrogen 20 mg/dL (8-23); Carbon Dioxide 25 mmol/L (22-29); Chloride 99 mmol/L (98-107); Globulin 2.4 g/dL (1.3-4.6); Glucose 85 mg/dL (65-115); Osmolality Calculated 288 mOsm/kg (285-295); Potassium 3.8 mmol/L (3.5-5.1); Sodium 138 mmol/L (136-145); Total Bilirubin 0.2 mg/dL (0.15-1.2); Total Protein 6.6 g/dL (6.6-8.7)
[2023-05-09 09:11] LABS: Troponin(5th) Baseline 23 ng/L (0-15)
[2023-05-09] MEDS: ipratropium-albuterol 3 mL Neb INHALATION ×4 (09:14→23:52)
--- NOTE | 2023-05-09 09:18 | PC.PHAR ---
MED LIST HAS ADDITIONAL ORDER FOR DULOXETINE 20 MG DAILY. UNABLE TO VERIFY UNTIL [facility] FAXES BACK. 05/09
--- NOTE | 2023-05-09 10:32 | ECG_ITS ---
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 Measurements Intervals [place] Rate: 88 P: 99 OR: 143 QRS: 83 QRSD: 105 T: 80 QT: 359 QTc: 436 Interpretive Statements SINUS RHYTHM WITH OCCASIONAL SUPRAVENTRICULAR PREMATURE COMPLEXES Compared to ECG 05/09/2023 08:31:18 No significant changes Electronically Signed On 05-09-2023 12:57:44 CDT by Doris Albert M.D. [email or web address] [email or web address]/store/OM/[id number]
[2023-05-09 11:13] LABS: Troponin 5 2HR 55.12 ng/L (0-15)
[2023-05-09 11:16] LABS: Troponin 5 2HR Delta 32.12 ABS# (0-10)
--- NOTE | 2023-05-09 11:18 | CT_ITS ---
WS: [id number] CTA OF THE CHEST WITH PULMONARY EMBOLISM PROTOCOL TECHNIQUE: High-resolution contrast enhanced CTA of the chest with coronal and sagittal reformatted i dani with pulmonary embolism protocol. MIP images are also reviewed. CLINICAL INFORMATION: lung CA, dyspnea and chest pain COMPARISON: CT chest 02/13/2023 DLP: 213.[address] scans at [facility] use at least one of these dose optimization techniques: automated e xposure control; mA and/or kV adjustment per patient size (includes targeted exams where dose is matc hed to clinical indication); or iterative reconstruction. FINDINGS: Proximal main pulmonary arteries are normal. Normal segmental and subsegmental pulmonary ar teries. No evidence of pulmonary embolus. Previously treated RIGHT upper lobe neoplasm is similar in appearance. No evidence of progressed dise ase. Advanced chronic emphysematous changes. No acute pulmonary infiltrates. No focal pneumonia or pl eural fluid. Normal caliber thoracic aorta. Aortic calcification. Moderate atheromatous disease aortic arch. Adrenal glands are normal. Splenic granulomas. Normal GE junction. Prior vertebroplasty changes in th e upper thoracic spine. IMPRESSION: 1. No evidence of pulmonary embolus. 2. No other acute findings.
[2023-05-09] MEDS: iohexol 350 mg/mL 500 mL Btl (per mL) IV (11:33)
[2023-05-09] MEDS: aspirin 81 mg Chew Tablet 324 MG PO (11:47)
[2023-05-09] MEDS: heparin 5,000 unit/mL INJ 1 mL IV (11:48)
[2023-05-09] MEDS: heparin drip 25,000 UNIT/500 ML PREMIX 15 UNIT IV (11:56)
--- NOTE | 2023-05-09 12:03 | PM.HP ---
Providers/Chief Complaint Admitting Physician: Yoni Gupta MD Primary Care Provider: Ruthy Piña MD Chief Complaint: SOB History of Present Illness Brian Russo is a 73 year old male with COPD and non-small lung cancer presenting to the emergency department with severe shortness of breath. reports he has been more short of breath in the last week, and has been in the emergency department lately on May 07 where Levaquin dose was increased and prednisone dose increased. He is complained of intermittent chest discomfort but its been hard to qualify. Patient cannot tell me any qualifying factors other than pain. He has no history of any coronary disease. He has been coughing, and wheezing more than usual. No hemoptysis. is very concerned that his breathing issues are secondary to the immune modulating medication he is currently receiving for lung cancer. His first dose of durvalumab was on April 13. Previous to this he had completed radiation, and he completed 5/ treatments of chemo. He has not had any fevers. He is very panicked at times. reports that she and the patient have discussed in detail and he will not be receiving any more chemotherapy, radiation, or immune modulating medication. He denies any chest discomfort presently. Review of Systems General: Reports: 10 or more systems reviewed and unremarkable except in HPI and below Card: Reports: chest pain; Denies: swelling of feet/ankles Resp: Reports: dyspnea, productive cough and wheezing GI: Reports: other (Denies any dysphagia); Denies: abdominal pain, nausea, vomiting or heartburn Medications/Allergies Home Medications Medication Instructions Recorded Confirmed Last Taken Type albuterol sulfate 2.5 mg/3 mL 2.5 mg inhalation Q6H PRN Dyspnea 07/07/20 05/09/23 12/05/22 History (0.083 %) solution for nebulization cholecalciferol (vitamin D3) 50 50 mcg PO DAILY 07/07/20 05/09/23 05/08/23 History mcg (2,000 unit) capsule multivitamin 1 tab PO DAILY 07/07/20 05/09/23 05/08/23 History rosuvastatin 20 mg tablet 10 mg PO DAILY 07/07/20 05/09/23 05/08/23 History bee pollen 1,000 mg chewable tablet 1,000 mg PO BID 08/21/20 05/09/23 05/08/23 History omeprazole 20 mg tablet,delayed 20 mg PO DAILY 08/21/20 05/09/23 05/08/23 History release lidocaine 5 % topical patch 1 patch topical DAILY PRN Pain 11/11/22 05/09/23 05/08/23 History prednisone 10 mg tablet 10 mg PO DAILY 11/11/22 05/09/23 05/08/23 History prochlorperazine maleate 10 mg 10 mg PO Q4H PRN Mild Nausea #30 12/13/22 05/09/23 Unknown Rx tablet (Compazine) tabs dronabinol 5 mg capsule 5 mg PO BID #60 caps 01/06/23 05/09/23 05/08/23 Rx benzonatate 100 mg capsule 100 mg PO BID PRN cough #20 caps 02/14/23 05/09/23 05/08/23 Rx budesonide 160 mcg-glycopyr 9 2 inh inhalation BID #10.7 grams 03/28/23 05/09/23 05/08/23 Rx mcg-formot 4.8 mcg/actuation HFA inhaler (Breztri Aerosphere) lorazepam 1 mg tablet 0.5 - 1 mg PO Q6H PRN Severe 04/06/23 05/09/23 Unknown Rx Nausea #30 tabs hydrocodone 10 mg-acetaminophen 1 tab PO QID PRN pain 30 days #120 05/05/23 05/09/23 05/08/23 Rx 325 mg tablet tabs levofloxacin 750 mg tablet 750 mg PO DAILY 5 days #5 tabs 05/07/23 05/09/23 05/08/23 Rx prednisone 50 mg tablet 50 mg PO DAILY 5 days #5 tabs 05/07/23 05/09/23 05/08/23 Rx duloxetine 20 mg capsule,delayed 20 mg PO DAILY 05/09/23 05/09/23 05/09/23 History release tramadol 50 mg tablet 50 mg PO Q46H PRN Pain 05/09/23 05/09/23 Unknown History Allergies Allergy/AdvReac Type Severity Reaction Status Date / Time adhesive Allergy ALGY-Rash Verified 05/09/23 08:35 tetracycline AdvReac ADR-Halluci Verified 05/09/23 08:[facility] Acute PFSH: Medical History (Updated 05/09/23 @ 12:14 by Yoni Gupta MD) Compression fracture of thoracic vertebra COPD (chronic obstructive pulmonary disease) Dyslipidemia GERD (gastroesophageal reflux disease) HTN (hypertension), benign Hyperlipidemia Non-small cell lung cancer Osteoporosis PAD (peripheral artery disease) 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, stage II Surgical History H/O circumcision H/O colonoscopy 2014 H/O esophagogastroduodenoscopy History of bronchoscopy (11/15/22) Navigational bronchoscopy/EBUS History of cataract extraction History of hip surgery History of kyphoplasty (03/04/22) T5 kyphoplasty Port-A-Cath in place S/P AAA (abdominal aortic aneurysm) repair Family History Other CAD (coronary artery disease) Cancer Diabetes Hypertension Stroke Denies family history of Anesthesia complication Bleeding disorder Social History Smoking and tobacco status: former smoker Quit status (tobacco): has quit using tobacco Year quit tobacco: 2019 Former quit date comment: 1.5 ppd X 54 years, Alcohol intake: former Substance/Drug Use: never Household members: significant other Marital status: Single Current occupational status: retired Vitals/I&O/Wt Last Vital Signs Temp 98.3 F 05/09/23 08:26 Pulse 93 05/09/23 11:44 Resp 28 H 05/09/23 11:44 BP 146/85 05/09/23 11:44 Pulse Ox 94 05/09/23 11:44 O2 Del Method Room Air 05/09/23 11:44 Weight last 48 hrs Weight 54.431 kg Physical Exam Narrative: General exam is an anxious appearing white male, with tachypnea HEENT: Atraumatic and normocephalic. Oropharynx clear. A dentulous. Neck is supple no lymphadenopathy thyromegaly Cardiovascular regular rate and rhythm with frequent premature beats. No murmur Lungs a few bilateral expiratory wheezes. Diminished breath sounds are noted bilaterally Abdomen is soft with positive bowel sounds. No obvious organomegaly exam is deferred Extremities no cyanosis clubbing or edema, cap refill brisk Skin no rash Neuro no obvious focal deficits Data 05/09/23 08:42 05/09/23 08:42 Other Labs: Chest x-ray by my read demonstrates a port, on the left, COPD, no evidence of infiltrate. EKG by me demonstrates sinus rhythm, frequent premature beats, rate around 80, normal axis, incomplete right bundle, flipped T waves aVL which is old CTA of chest is negative for pulmonary embolism. Vertebroplasty changes are noted. Right upper lobe mass is present with no evidence of progression of disease. Initial troponin is 23 with repeat of 55 LFTs are normal Calcium and albumin are normal A&P Assessment and plan (1) Chest pain: Patient presents to the hospital mainly with shortness of breath episodes. He also has had some chest discomfort but cannot qualify it. EKG is not diagnostic. CTA has been performed which demonstrates no pulmonary embolism. Second troponin is elevated. Third troponin is pending. This could potentially be a non-ST elevation myocardial infarction. Aspirin, and heparin drip was initiated in the emergency department. Continue aspirin, and heparin on transfer to the floor. Add beta-dionicio low-dose, increase as tolerated Continue statin. Increase to 20 mg on discharge and patient are trying to define their goals regarding medical treatment. They do not wish for any treatment further of his lung cancer, and are therefore considering more comfort measures in regards to this. Echocardiogram After I had an extensive discussion with the family will determine whether further cardiac work-up such as nuclear stress testing or cardiology consultation should occur. This will be determined by the family's goals of care. (2) Acute exacerbation of chronic obstructive airways disease: At this point he still has some wheezing. Solu-Medrol 60 mg IV every 12 hours Finish course of Levaquin Check COVID PCR Budesonide twice daily, DuoNeb every 4 hours (3) Squamous cell carcinoma of lung, stage II: Most recent treatment with immunotherapy in early April. Family and patient are refusing any further treatment. Plan Multiple other medical problems as outlined in past medical history Allow natural . This determination was made after extensive discussion with patient and family and discussion of goals of care. Heparin will suffice for DVT prophylaxis Attestations Medical Necessity Statement*: Will require greater than 2 midnights stay secondary to COPD exacerbation associated with possible non-ST elevation myocardial infarction Diagnoses Chest pain R07.9 Acute exacerbation of chronic obstructive airways disease J44.1 Squamous cell carcinoma of lung, stage II C34.90 Time Spent (min) 50
--- NOTE | 2023-05-09 12:20 | USCV_ITS ---
Brian Russo Age: 73 Gender: M : 1950 Exam Date: 05/09/2023 12:52 Ordering Phys: Yoni Gupta MD Technologist: Daniel Saul [place]am [place] [facility] [place]: chest pain BP: 154 / 82 HR: 94 Rhythm: Sinus Technical Quality: MEASUREMENTS (Male / Female) Normal Values DOPPLER AV Peak Velocity 66.0 cm/s LVOT Peak Velocity 80.0 cm/s MV Area PHT 5.0 cm squared Mitral E to A Ratio 0.9 MV E' Velocity 49.0 cm/s FINDINGS Left Ventricle Right Ventricle Right Atrium Left Atrium Mitral Valve Aortic Valve Tricuspid Valve Pulmonic Valve Pericardium Aorta IVC CONCLUSIONS Technically very limited quality echocardiogram because of poor ultrasonic windows. Most images were obtained only in subcostal view. Grossly LV systolic function is mildly reduced. Regional wall motion abnormalities cannot accurately be assessed because of limited visualization. Valves are not well visualized. No comparison studies are available aGbe Ruff MD (Electronically Signed) Final Date: 09 May 2023 14:48 S
--- NOTE | 2023-05-09 14:02 | PC.NURSE ---
Patient arrived to CSU via stretcher. Patient is oriented to room and call humphrey. Nurse will continue to monitor.
[2023-05-09] MEDS: atorvastatin 40 mg Tablet PO (14:21)
--- NOTE | 2023-05-09 14:30 | ECG_ITS ---
[facility] Test Date: 2023-05-09 Pat Name: Brian Russo Department: Room: Gender: Male Branch Operations Specialist: : 1950 Requested By: Jose Nguyen Order Number: [id number] Renita MD: Doris Albert M.D. Measurements Intervals [place] Rate: 83 P: 73 SD: 141 QRS: 79 QRSD: 101 T: 76 QT: 370 QTc: 437 Interpretive Statements SINUS RHYTHM WITH FREQUENT SUPRAVENTRICULAR PREMATURE COMPLEXES INCOMPLETE RIGHT BUNDLE BRANCH BLOCK [90+ ms QRS DURATION, TERMINAL R IN V1/V2, 40+ ms S IN I/aVL/V4/V5/V6] ABNORMAL RHYTHM ECG Compared to ECG 05/09/2023 10:32:29 Incomplete right bundle-branch block now present Electronically Signed On 05-09-2023 12:57:22 CDT by Doris Albert M.D. [id number]
[2023-05-09 15:05] LABS: Adenovirus Not Detected (NOT DETECT); Chlamydia Pneumoniae Not Detected (NOT DETECT); Coronavirus 229E,HKU1,NL63,OC4 Not Detected (NOT DETECT); Human Metapneumovirus Not Detected (NOT DETECT); Human Rhinovirus/Enterovirus Not Detected (NOT DETECT); Influenza A Not Detected (NOT DETECT); Influenza A H1 Not Detected (NOT DETECT); Influenza A H1-2009 Not Detected (NOT DETECT); Influenza A H3 Not Detected (NOT DETECT); Influenza B Not Detected (NOT DETECT); Mycoplasma Pneumoniae Not Detected (NOT DETECT); Parainfluenza Virus Type 1 Not Detected (NOT DETECT); Parainfluenza Virus Type 2 Not Detected (NOT DETECT); Parainfluenza Virus Type 3 Not Detected (NOT DETECT); Parainfluenza Virus Type 4 Not Detected (NOT DETECT); Respiratory Syncytial Virus A Not Detected (NOT DETECT); Respiratory Syncytial Virus B Not Detected (NOT DETECT); SARS-COV-2 Not Detected (NOT DETECT)
[2023-05-09 15:50] LABS: Troponin 5 6HR 45.36 ng/L (0-15)
[2023-05-09 15:53] LABS: Troponin 5 6HR Delta 22.36 ng/L (0-12)
--- NOTE | 2023-05-09 15:54 | PM.CONSULT ---
Providers/Reason For Consult Consulting Physician/Specialty*: Gabe Ruff MD/ Cardiology Reason for Consult*: NSTEMI Requesting Physician: Dr Gupta Attending Physician: Yoni Gupta MD Primary Care Provider: Ruthy Piña MD History of Present Illness History of Present Illness Brian Russo is a 73 year old male with past medical history of COPD, lung cancer who presented to hospital with on and off chest pain for the last 2 days. Also has been having worsening shortness of breath. He was recently seen in emergency room for shortness of breath symptoms as well. His troponin has trended up from 23 at baseline to 55 at 2 hours. Echo is very limited quality however EF appears to be mildly reduced.He says that feels substernal chest discomfort that lasts several minutes and then improves. Review of Systems General: Reports: 10 or more systems reviewed and unremarkable except in HPI and below Card: Reports: chest pain; Denies: swelling of feet/ankles Resp: Reports: dyspnea, productive cough and wheezing GI: Reports: other (Denies any dysphagia); Denies: abdominal pain, nausea, vomiting or heartburn Medications/Allergies Home Medications Medication Instructions Recorded Confirmed Last Taken Type albuterol sulfate 2.5 mg/3 mL 2.5 mg inhalation Q6H PRN Dyspnea 07/07/20 05/09/23 12/05/22 History (0.083 %) solution for nebulization cholecalciferol (vitamin D3) 50 50 mcg PO DAILY 07/07/20 05/09/23 05/08/23 History mcg (2,000 unit) capsule multivitamin 1 tab PO DAILY 07/07/20 05/09/23 05/08/23 History rosuvastatin 20 mg tablet 10 mg PO DAILY 07/07/20 05/09/23 05/08/23 History bee pollen 1,000 mg chewable tablet 1,000 mg PO BID 08/21/20 05/09/23 05/08/23 History omeprazole 20 mg tablet,delayed 20 mg PO DAILY 08/21/20 05/09/23 05/08/23 History release lidocaine 5 % topical patch 1 patch topical DAILY PRN Pain 11/11/22 05/09/23 05/08/23 History prednisone 10 mg tablet 10 mg PO DAILY 11/11/22 05/09/23 05/08/23 History prochlorperazine maleate 10 mg 10 mg PO Q4H PRN Mild Nausea #30 12/13/22 05/09/23 Unknown Rx tablet (Compazine) tabs dronabinol 5 mg capsule 5 mg PO BID #60 caps 01/06/23 05/09/23 05/08/23 Rx benzonatate 100 mg capsule 100 mg PO BID PRN cough #20 caps 02/14/23 05/09/23 05/08/23 Rx budesonide 160 mcg-glycopyr 9 2 inh inhalation BID #10.7 grams 03/28/23 05/09/23 05/08/23 Rx mcg-formot 4.8 mcg/actuation HFA inhaler (Breztri Aerosphere) lorazepam 1 mg tablet 0.5 - 1 mg PO Q6H PRN Severe 04/06/23 05/09/23 Unknown Rx Nausea #30 tabs hydrocodone 10 mg-acetaminophen 1 tab PO QID PRN pain 30 days #120 05/05/23 05/09/23 05/08/23 Rx 325 mg tablet tabs levofloxacin 750 mg tablet 750 mg PO DAILY 5 days #5 tabs 05/07/23 05/09/23 05/08/23 Rx prednisone 50 mg tablet 50 mg PO DAILY 5 days #5 tabs 05/07/23 05/09/23 05/08/23 Rx duloxetine 20 mg capsule,delayed 20 mg PO DAILY 05/09/23 05/09/23 05/09/23 History release tramadol 50 mg tablet 50 mg PO Q46H PRN Pain 05/09/23 05/09/23 Unknown History Allergies Allergy/AdvReac Type Severity Reaction Status Date / Time adhesive Allergy ALGY-Rash Verified 05/09/23 08:35 tetracycline AdvReac ADR-Halluci Verified 05/09/23 08:35 nating Current Medications Generic Name Dose Route Start Last Admin Trade Name Freq PRN Reason Stop Dose Admin Albuterol/Ipratropium 3 ml 05/09/23 16:00 05/09/23 15:05 Ipratropium-Albuterol 3 Ml Neb INHALATION 3 ml Q4H.RESPIRATORY DAVIS Administration Heparin Sodium (Porcine) 0 unit 05/09/23 11:17 05/09/23 11:48 Heparin 5,000 Unit/Ml Inj 1 Ml IV 2,700 unit PRN PRN Administration Heparin weight-base protocol Protocol Heparin Sodium/Sodium Chloride 25,000 unit in 500 mls @ 0 mls/hr 05/09/23 11:30 05/09/23 11:56 Heparin Drip IV 13.78 unit/kg/hr .Q0M DAVIS 15 mls/hr Administration Protocol Per Protocol PFSH Acute PFSH: Medical History Compression fracture of thoracic vertebra COPD (chronic obstructive pulmonary disease) Dyslipidemia GERD (gastroesophageal reflux disease) HTN (hypertension), benign Hyperlipidemia Non-small cell lung cancer Osteoporosis PAD (peripheral artery disease) 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, stage II Surgical History H/O circumcision H/O colonoscopy 2014 H/O esophagogastroduodenoscopy History of bronchoscopy (11/15/22) Navigational bronchoscopy/EBUS History of cataract extraction History of hip surgery History of kyphoplasty (03/04/22) T5 kyphoplasty Port-A-Cath in place S/P AAA (abdominal aortic aneurysm) repair Family History Other CAD (coronary artery disease) Cancer Diabetes Hypertension Stroke Denies family history of Anesthesia complication Bleeding disorder Social History Smoking and tobacco status: former smoker Quit status (tobacco): has quit using tobacco Year quit tobacco: 2019 Former quit date comment: 1.5 ppd X 54 years, Alcohol intake: former Substance/Drug Use: never Household members: significant other Marital status: Single Current occupational status: retired Vitals/I&O/Wt Last Vital Signs Temp 98.3 F 05/09/23 08:26 Pulse 83 05/09/23 15:16 Resp 16 05/09/23 15:16 BP 150/87 05/09/23 13:51 Pulse Ox 95 05/09/23 15:16 O2 Del Method Room Air 05/09/23 15:16 Weight last 48 hrs Weight 120 lb Physical Exam Narrative: GENERAL: Patient is alert, awake and oriented x3. [] NECK: No jugular vein distension. [] HEENT: No cyanosis. No icterus. No pallor. [] HEART: Regular S1 and S2. No murmur, rub or gallop. [] LUNGS: Diminished air entry[] CENTRAL NERVOUS SYSTEM: Grossly nonfocal. [] EXTREMITIES: Lower extremities with 1+ edema bilaterally. 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 Presentation consistent with non-ST elevation CT. All options were discussed including medical therapy versus cardiac catheterization versus stress test. Patient and family have opted to proceed with coronary angiogram with possible percutaneous coronary intervention. N.p.o. past midnight. Continue aspirin. Continue heparin. Echocardiogram was performed however was a very limited quality. Thank you for involving us with care of this patient. We will continue to follow. Please call with questions. 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
[2023-05-09] MEDS: dronabinol 2.5 mg Capsule 5 MG PO (18:21)
[2023-05-09 18:47] LABS: Bilirubin Urine Neg (Negative); Blood Urine Neg (Negative); Glucose Urine UA Norm (Normal); Ketones Urine Negative (Negative); Leukocyte Esterase Urine Negative (Negative); Nitrate Urine Negative (Negative); Protein Urine Neg (Negative); Specific Gravity, Urine 1.015 (1.005-1.030); Urine Appearance Clear (CLEAR); Urine Color Yellow (Yellow); Urobilinogen Urine Norm (Negative); pH Urine 8 (5-7)
[2023-05-09 19:01] LABS: Partial Thromboplastin Time 61.2 SECONDS (23.9-36.7)
[2023-05-09 19:19] LABS: RBC Urine RARE /hpf (0-2); Squamous Epithelial Cell Urine 0-4 /hpf (0-5); WBC Urine RARE /hpf (0-5)
[2023-05-09 19:20] LABS: Add Urine Culture? No; Amorphous Sediment Urine TRACE /hpf
[2023-05-09] MEDS: budesonide 0.5 mg/2 mL Neb INHALATION (19:49)
[2023-05-09] MEDS: metoprolol tartrate 25 mg Tablet 12.5 MG PO (20:28)
[2023-05-09] MEDS: oxyCODONE 5 mg IR Tab/Cap PO (20:29)
[2023-05-09] MEDS: methylPREDNISolone sod succ 60 MG in water for injection-sterile 0.96 ML IVP (20:30)
[2023-05-09] MEDS: morphine 4 mg/mL SDV 1 mL 2 MG IVP (21:28)
[2023-05-10] VITALS (14 sets, daily range): BP systolic 107–143; BP diastolic 65–82; PULSE 65–84; RESP 12–22; TEMP 36.5–36.6; O2SAT 94–98
[2023-05-10 02:09] LABS: Basophils % 0.1 %; Hematocrit 44.4 % (37-53); Lymphocytes # 0.4 10^3/uL (0.8-4.8); Lymphocytes % 4.8 %; Mean Corpuscular HGB Conc 34.9 g/dL (30-55); Mean Corpuscular Hemoglobin 31.9 pg (27-33); Mean Corpuscular Volume 91.4 fl (82-101); Mean Platelet Volume 8.7 fL (7.4-10.4); Monocytes # 0.1 10^3/uL (0.2-0.9); Monocytes % 0.7 %; Neutrophils # 8.64 10^3/uL (1.8-7.7); Nucleated Red Blood Cells % 0 %; Platelet Count 219 10^3/cmm (157-399); Red Blood Count 4.86 10^6/uL (3.85-5.65); Red Cell Distribution Width 11.3 % (12.1-15.1); White Blood Count 9.19 10^3/uL (3.29-11.43)
[2023-05-10 02:21] LABS: Partial Thromboplastin Time 59.7 SECONDS (23.9-36.7)
[2023-05-10 02:28] LABS: Alanine Aminotransferase 24 U/L (0-41); Albumin Level 4.1 g/dL (3.5-5.2); Alkaline Phosphatase 64 U/L (40-130); Anion Gap 15.4 (5-19); Aspartate Amino Transferase 20 U/L (0-40); Blood Urea Nitrogen 21 mg/dL (8-23); Calcium 9.2 mg/dL (8.5-10.5); Carbon Dioxide 26 mmol/L (22-29); Chloride 103 mmol/L (98-107); Globulin 2.3 g/dL (1.3-4.6); Glucose 128 mg/dL (65-115); Magnesium 2.5 mg/dL (1.7-2.3); Osmolality Calculated 295 mOsm/kg (285-295); Potassium 4.4 mmol/L (3.5-5.1); Sodium 140 mmol/L (136-145); Total Bilirubin 0.3 mg/dL (0.15-1.2); Total Protein 6.4 g/dL (6.6-8.7)
--- NOTE | 2023-05-10 02:54 | PC.NURSE ---
No change to heparin gtt per heparin protocol. heparin running at 15mL/hr.
[2023-05-10] MEDS: ipratropium-albuterol 3 mL Neb INHALATION ×2 (03:16→11:37)
--- NOTE | 2023-05-10 06:05 | XACV_ITS ---
Exam Room: [facility] Ht: 168 cm Wt: 54 kg BSA: 1.59 m2 Gender: Male : 1950 Any Known Allergies: Other Exam Priority: Routine Indication(s): - Non-ST elevation NC Procedure(s): Procedure Description: Diagnostic procedure Procedure Description: PCI procedure Procedure Description: Left Heart Catheterization Procedure Description: Left ventriculography Procedure Description: Coronary IVUS Procedure Description: Coronary Angiography Diagnostic Cath Status: Urgent Diagnostic Findings * Left Main: moderate 40% ostial to proximal stenosis, GALEN: 3 flow. * Circumflex has no significant disease. * Right Coronary Artery has mild luminal irregularities. * Left Anterior Descending has no disease. * Coronary angiography shows right dominance. Interventional Findings * Procedure detail: We engaged left main artery with XB 3.0 guide catheter. IV heparin was administered to maintain anticoagulation. Runthrough guidewire was used to cross the left main stenosis and was put in distal LAD. We then used IVUS catheter to assess left main artery stenosis. MLA of 6.8mm2 was obtained that was not significant. At this time final angiogram was performed that showed excellent flow and no complications. Patient left the Neck Pinner in a stable condition. Conclusions 1. Moderate left main artery stenosis. Confirmed with 2. IVUS 3. with MLA 4. of 6.8 mm2. Medical therapy. 5. Normal left ventricular systolic function. Ejection fraction of 55%. Recommendations * Aggressive risk factor modification. * Outpatient cardiology follow up in 7-10 days. Interventional RX Recommendation: medical therapy and/or counseling Diagnostic RX Recommendation: medical therapy and/or counseling Anticoagulation: Heparin Ventriculography Ejection Fraction: 55.0 % Pressures Phase:Rest AO : / ( 0 ) @ 8:21:00 AM / ( 0 ) @ 8:23:00 AM 102 / 86 ( 95 ) @ 8:28:00 AM 95 / 83 ( 90 ) @ 8:33:00 AM 144 / 80 ( 107 ) @ 8:39:00 AM 140 / 79 ( 103 ) @ 8:39:00 AM 168 / 138 ( 122 ) @ 8:50:00 AM LV : 121 / -7 / 3 @ 8:37:00 AM 139 / -10 / 10 @ 8:38:00 AM 132 / -8 / 2 @ 8:39:00 AM 131 / -8 / 6 @ 8:39:00 AM Valves Phase:DefaultPhase AV : 0.0 @ 8:00:06 AM AV Mean Gradient: 0.0 @ 8:00:06 AM Clinical Evaluation EBL: 5mL-10mL Procedural Details Procedure Consent Obtained. Admit Source: In Patient. Current Diagnosis : NSTEMI. Pre-Procedure Time Out. Identified patient by full name and date of as verbalized by the patient/guarantor. Does the consent match the physician's order: Yes. Accurate & Complete Informed Consent: Yes. Inpatient/Outpatient History & Physical on Chart: Yes. If H&P is completed, is and addenduem needed: No; If yes, is the addendum complete: N/A. Visualize and Verify Site with Patient/Guarantor: N/A. Relevant Radiology Images available: N/A. The risks, benefits, and alternatives of sedation and/or procedure were discussed by physician. The patient agrees to continue. Procedure started. [facility] Clinical Fraility Score: 4: Vulnerable. Neck Pinner Indications: Other- NONSTEMI. Chest Pain Symptom Assessment: Typical Angina Symptoms. Cardiovascular Instability: No, stable. Correct patient, site and procedure confirmed by cath team. Current diagnosis: NSTEMI. PERRLA. 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 Lungs clear x 5 lobes. IV Site on Arrival: 20 gauge in the right anticubital. IV Fluids: 0.9% NaCl at KVO. 0 mL infused prior to cardiac cath lab technologist. Pre Procedural Pulses: bilateral radial was 3+. Pre Procedural Pulses: bilateral posterior tibial was Doppled. Pre Procedural Pulses: bilateral dorsalis pedis was Doppled. Oxygen started at 3liters/min via nasal canula. right groin was prepped with chloroprep then draped in the usual sterile fashion. right radial was prepped with chloroprep then draped in the usual sterile fashion. Physician notified. Baseline sample Acquired. HR: 74 BPM. Physician arrived. Baseline sample Acquired. HR: 66 BPM. Physician scrubbed in. Patient's family unavailable. Equipment: 5F - Radial. Equipment: 6F - Radial. Immediate Pre-Procedure Time Out. Correct Patient: Yes; Correct Procedure: Yes; Correct Site: Yes; Correct Patient Position: Yes; Correct Supplies: Yes; Dried Flammable Prep: Yes; Blood Products Available: N/A;. Lidocaine 1% infiltrated to the right radial. Arterial access obtained. A 5 uzbek TIG catheter in over the exchange wire. Multiple views taken of left coronary artery. Catheter redirected to the RCA. Multiple views taken of right coronary artery. Catheter removed over the exchange wire. A 5 uzbek Angled Pig catheter in over the exchange wire. EDP Sample taken: LV 121/-8,3; HR: 84 BPM; SpO2: 96%. LV gram performed in GAVIRIA @ 10 mL/second for a total of 30 mL. Patient EF: Normal. EDP Sample taken: LV 139/-11,10; HR: 83 BPM; SpO2: 96%. EDP Sample taken: LV 132/-9,2; HR: 87 BPM; SpO2: 96%. Pullback taken: LV 131/-9,6; AO 144/80(107); Mean: 0mmHg, Peak to Peak: 0mmHg, SEP: 1sec/min; HR: 88 BPM; SpO2: 96%. Catheter removed over the exchange wire. 6 uzbek XB 3 guide catheter was inserted over the wire. INVENTORY: COPILOT, RUNTHROUGH, ENDOFLATOR. Guide seated. Runthrough guidewire was advanced through the guide catheter to lesion in the left main. Guidewire advanced across lesion. IVUS catheter inserted. IVUS of left main performed. IVUS catheter out. Angiography perfomed of LCS. Runthrough wire out. Angiography perfomed of LCS. Guide catheter out over the wire. Physician review of films. Physician scrubbed out. [id number]. A TR Band was successful obtaining hemostatsis at the Right Radial artery insertion site. TR band placed. Hemostasis obtained. Post Procedure: Pulses reassessed and unchanged. PERRLA. 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 No VTE prophylaxis required. Medicatkon waste Lido-3 ml. Nitro- 49.8 mg. Heparin- 3000 units. Versed- 1 mg. Fentanyl- 75 mcg. Total IV fluids: 43 mL. Fluoro: 5:07. Contrast type used: Omnipaque 300 mg/mL, 150 mL bottle. Post-op diagnosis: Moderate left main stenosis; S/P IVUS evaluation. Complications: None. Estimated blood loss: 5mL-10mL. Responsiveness - Normal response to verbal stimuli; alert and oriented, PERRLA. Airway - Unaffected, no intervention required; spontaneous ventilation. Circulation: W/N/L, pulses unchanged. Nausea/Vomiting: No. Procedure completed. Patient transferred by bed to CPRU. Vital chart was stopped. Access Site Site: Right Radial artery Sheath Size: 6 Fr Hemostasis Method: TR Band Hemostasis Success: Successful Procedure Medications Start: 7:21 AM Stop: 7:21 AM Medication: Versed 1 mg and Fentanyl 25 mcg Amount: 1 Route: I.V. Start: 7:26 AM Stop: 7:26 AM Medication: Nitrogylcerin Amount: 200 mcg Route: I.A. Start: 7:27 AM Stop: 7:27 AM Medication: Heparin Amount: 1500 units Route: I.V. Start: 7:43 AM Stop: 7:43 AM Medication: Heparin Amount: 1500 units Route: ILenny Hartman, the attending physician, have reviewed and verified all procedure medications. Yes, all medications given per verbal order History/Risk Factors Hypertension: Yes Dyslipidemia: Yes Peripheral Arterial Disease (PAD): No Myocardial Infarction (NC): No Obesity: No Renal Disease: No Tobacco Use: Former Prior Interventions PCI: No CABG: No Valve Surgery: No Report Signatures Finalized by Gabe Ruff MD on 05/24/2023 12:05 PM
[2023-05-10] MEDS: diphenhydrAMINE 50 mg Capsule PO (06:34)
[2023-05-10] MEDS: aspirin 325 mg EC Tablet PO (06:34)
[2023-05-10] MEDS: sodium chloride 0.9% 1,000 ML 50 ML IV (06:35)
--- NOTE | 2023-05-10 07:20 | W.PM.OPSUD ---
Surgery/Procedure H&P Update DATE OF PROCEDURE: May 10, 2023 DATE H&P PERFORMED: 05/09/23 H&P UPDATE INFORMATION: I have reviewed H&P completed within last 30 days, I have examined patient prior to procedure and No changes to prior documentation CHANGES TO PREVIOUS DOCUMENTATION: Patient's CODE STATUS is DO NOT RESUSCITATE. For the duration of the procedure, patient and family have agreed to change CODE STATUS to full code. PREOP DIAGNOSIS: NSTEMI PRIMARY INDICATION FOR PROCEDURE: NSTEMI PLANNED PROCEDURE: Left heart cath with possible percutaneous coronary intervention PATIENT REASSESSED PRIOR TO SEDATION, WITH NO CHANGE NOTED: Yes PHYSICAL EXAM: alert, oriented x 3, clear to auscultation bilaterally and regular rate & rhythm AIRWAY EVAL/ANESTHESIA PLAN: normal airway, ASA III, Local Anesthesia, Risks, benefits & alternatives of sedation and/or procedure discussed and Patient agrees to continue as planned ADDITIONAL INFORMATION: Moderate sedation
--- NOTE | 2023-05-10 08:04 | PM.PN ---
Subjective Subjective: Patient is not having chest pain today. Underwent coronary angiogram that showed moderate left main artery stenosis. IVUS was performed that confirmed moderate stenosis. Vitals/I&O/Wt Last Vital Signs Temp 97.7 F 05/10/23 03:39 Pulse 65 05/10/23 05:09 Resp 22 H 05/10/23 03:39 BP 143/78 05/10/23 03:39 Pulse Ox 98 05/10/23 03:39 O2 Del Method Room Air 05/10/23 03:39 05/09/23 05/10/23 05/10/23 22:59 06:59 14:59 Intake Total 0.96 / 0.96 287.25 / 287.25 Balance 0.96 / 0.96 287.25 / 287.25 Weight last 48 hrs Weight 120 lb Physical Exam Narrative: GENERAL: Patient is alert, awake and oriented x3. [] NECK: No jugular vein distension. [] HEENT: No cyanosis. No icterus. No pallor. [] HEART: Regular S1 and S2. No murmur, rub or gallop. [] LUNGS: Diminished air entry[] CENTRAL NERVOUS SYSTEM: Grossly nonfocal. [] EXTREMITIES: Lower extremities with 1+ edema bilaterally. 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 IVUS was used to rule out severe disease. Medical therapy. Low-dose beta-dionicio and low dose Imdur can be added. Echocardiogram was performed however was a very limited quality. LV gram shows normal LV systolic function Thank you for involving us with care of this patient.Patient is stable to be discharged from cardiology standpoint. Please call with questions. Attestations Medical Necessity Statement*: Care expected to cross 2 midnights. 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
[2023-05-10] MEDS: levoFLOXacin 750 mg Tablet PO (09:55)
[2023-05-10] MEDS: pantoprazole DR 40 mg Tablet PO (09:55)
[2023-05-10] MEDS: predniSONE 20 mg Tablet 40 MG PO (09:56)
[2023-05-10] MEDS: isosorbide mononitrate ER 30 mg Tablet PO (09:56)
[2023-05-10] MEDS: docusate sodium 100 mg Capsule PO (09:56)
[2023-05-10] MEDS: metoprolol tartrate 25 mg Tablet 12.5 MG PO (09:56)
[2023-05-10] MEDS: duloxetine 20 mg Capsule PO (09:56)
[2023-05-10 10:49] LABS: Glucose Point of Care 99 mg/dL (70-110)
--- NOTE | 2023-05-10 12:23 | PM.DCS ---
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 Initial troponin 23 with repeat of 55 and 6-hour 45. EKG did not show any specific changes. Echocardiogram was limited but showed grossly normal function. He was placed in the hospital with concern of non-ST elevation myocardial infarction. Heparin drip was initiated. Low-dose beta-dionicio was initiated. Cardiology consultation obtained. They believed angiogram was needed. He was also treated while in the hospital for possible COPD exacerbation. He had already been diagnosed with this recently so his Levaquin was continued and he was placed on IV Solu-Medrol. On May 10 he underwent angiogram, showing moderate stenosis left main, on IVUS did not show flow obstruction. Following this he did well, had no chest pain it was thought he could be discharged home. When I evaluated him he had no active wheezing, and was amenable to discharge home. Right radial artery site without significant hematoma. It also triggered positive for a suicide questionnaire regarding passive thoughts of not being around. He denied any homicidal or suicidal ideation to me, reported he was depressed, and would follow-up with his primary care provider. He reports he just started taking medication for depression that had already been identified. He was encouraged to continue to take this medicine and follow-up with his primary. On discharge Imdur was added as well as metoprolol and aspirin for his coronary disease. Him and his were given opportunity to ask questions, and agreed with the plan. Physical Exam Narrative: General exam no distress Neck is supple Cardiovascular regular rate and rhythm Lungs clear Abdomen is soft Extremities no sinus clubbing or edema, right radial artery angiogram site without significant hematoma. Discharge Data Studies Completed and Pending Completed Studies During Hospitalization Category Date Time Status CT angio chest PE protcl [id number] Stat Cat Scan 05/09/23 11:18 Completed XR chest 1V portable [id number] Stat Exams 05/09/23 08:30 Completed CV. echo complete* [id number] Routine Ultrasound 05/09/23 12:20 Completed Pending at discharge Category Date Time Status INSURANCE VERIFY REP request for service Routine Exams 05/10/23 06:05 Taken Platelet Count Q2D Lab 05/11/23 04:00 Ordered Platelet Count Q2D Lab 05/13/23 04:00 Ordered Radiology Impressions Chest X-Ray 05/09/23 08:30 IMPRESSION: There is chronic air trapping appearance similar overall with no lobar consolidation or appreciated.No interval acute cardiopulmonary changes are appreciated. Laboratory Results WBC 9.19 10^3/uL (3.29-11.43) 05/10/23 01:53 RBC 4.86 10^6/uL (3.85-5.65) 05/10/23 01:53 Hgb 15.50 g/dL (11.27-16.99) 05/10/23 01:53 Hct 44.4 % (37-53) 05/10/23 01:53 MCV 91.4 fl (82-101) 05/10/23 01:53 MCH 31.9 pg (27-33) 05/10/23 01:53 MCHC 34.9 g/dL (30-55) 05/10/23 01:53 RDW 11.3 % (12.1-15.1) L 05/10/23 01:53 Plt Count 219 10^3/cmm (157-399) 05/10/23 01:53 MPV 8.7 fL (7.4-10.4) 05/10/23 01:53 Neut % (Auto) 94.0 % 05/10/23 01:53 Lymph % (Auto) 4.8 % 05/10/23 01:53 Archuleta % (Auto) 0.7 % 05/10/23 01:53 Eos % (Auto) 0.0 % 05/10/23 01:53 Baso % (Auto) 0.1 % 05/10/23 01:53 Neut # (Auto) 8.64 10^3/uL (1.8-7.7) H 05/10/23 01:53 Lymph # (Auto) 0.4 10^3/uL (0.8-4.8) L 05/10/23 01:53 Archuleta # (Auto) 0.1 10^3/uL (0.2-0.9) L 05/10/23 01:53 Eos # (Auto) 0.0 10^3/uL (0.0-0.8) 05/10/23 01:53 Baso # (Auto) 0.0 10^3/uL (0.0-0.1) 05/10/23 01:53 Nucleated RBC % (auto) 0 % 05/10/23 01:53 Nucleated RBCs # 0.0 /100WBC 05/10/23 01:53 APTT 59.7 SECONDS (23.9-36.7) H 05/10/23 01:53 Sodium 140 mmol/L (136-145) 05/10/23 01:53 Potassium 4.4 mmol/L (3.5-5.1) 05/10/23 01:53 Chloride 103 mmol/L (98-107) 05/10/23 01:53 Carbon Dioxide 26 mmol/L (22-29) 05/10/23 01:53 Anion Gap 15.4 (5-19) 05/10/23 01:53 BUN 21 mg/dL (8-23) 05/10/23 01:53 Creatinine 1.0 mg/dL (0.7-1.2) 05/10/23 01:53 GFR Calculation Not Reportable 05/10/23 01:53 Glucose 128 mg/dL (65-115) H 05/10/23 01:53 POC Glucose 99 mg/dL (70-110) 05/10/23 10:47 Calculated Osmolality 295 mOsm/kg (285-295) 05/10/23 01:53 Calcium 9.2 mg/dL (8.5-10.5) 05/10/23 01:53 Magnesium 2.5 mg/dL (1.7-2.3) H 05/10/23 01:53 Total Bilirubin 0.3 mg/dL (0.15-1.2) 05/10/23 01:53 AST 20 U/L (0-40) 05/10/23 01:53 ALT 24 U/L (0-41) 05/10/23 01:53 Alkaline Phosphatase 64 U/L (40-130) 05/10/23 01:53 Troponin T Baseline 23 ng/L (0-15) H 05/09/23 08:42 Troponin T 120 Minute 55.12 ng/L (0-15) H 05/09/23 10:43 Delta Troponin T 32.12 ABS# (0-10) H* 05/09/23 10:43 Troponin T Hi Sens 6Hr 45.36 ng/L (0-15) H 05/09/23 14:56 Troponin T Hi Sens 6Hr Delta 22.36 ng/L (0-12) H* 05/09/23 14:56 Total Protein 6.4 g/dL (6.6-8.7) L 05/10/23 01:53 Albumin 4.1 g/dL (3.5-5.2) 05/10/23 01:53 Globulin 2.3 g/dL (1.3-4.6) 05/10/23 01:53 TSH 1.40 uIU/mL (0.27-4.20) 05/09/23 08:42 Urine Color Yellow (Yellow) 05/09/23 18:00 Urine Appearance Clear (CLEAR) 05/09/23 18:00 Urine pH 8 (5-7) H 05/09/23 18:00 Ur Specific [place] 1.015 (1.005-1.030) 05/09/23 18:00 Urine Protein Neg (Negative) 05/09/23 18:00 Urine Glucose (UA) Norm (Normal) 05/09/23 18:00 Urine Ketones Negative (Negative) 05/09/23 18:00 Urine Blood Neg (Negative) 05/09/23 18:00 Urine Nitrate Negative (Negative) 05/09/23 18:00 Urine Bilirubin Neg (Negative) 05/09/23 18:00 Urine Urobilinogen Norm mg/dL (Negative) 05/09/23 18:00 Ur Leukocyte Esterase Negative (Negative) 05/09/23 18:00 Urine RBC Rare /hpf (0-2) 05/09/23 18:00 Urine WBC Rare /hpf (0-5) 05/09/23 18:00 Ur Squamous Epith Cells 0-4 /hpf (0-5) H 05/09/23 18:00 Amorphous Sediment Trace /hpf 05/09/23 18:00 Urine Bacteria None /hpf (NONE) 05/09/23 18:00 Urine Mucus None /hpf 05/09/23 18:00 Coronavirus 229E (PCR) Not detected (NOT DETECT) 05/09/23 13:05 SARS-CoV-2 (PCR) Not detected (NOT DETECT) 05/09/23 13:05 Vitals Last Vital Signs Temp 97.7 F 05/10/23 03:39 Pulse 68 05/10/23 11:42 Resp 16 05/10/23 11:37 BP 131/69 05/10/23 08:45 Pulse Ox 94 05/10/23 11:37 O2 Del Method Room Air 05/10/23 11:37 Discharge Plan Discharge Patient Disposition: Home Condition: Stable Prescriptions: New metoprolol tartrate 25 mg Tablet 12.5 mg PO BID@0900,2100 Qty: 30 0RF prednisone 20 mg Tablet 40 mg PO DAILY Qty: 6 0RF aspirin 325 mg Tablet,Delayed Release (Dr/Ec) 325 mg PO DAILY Qty: 30 0RF isosorbide mononitrate 30 mg Tablet Extended Release 24 Hr 30 mg PO DAILY Qty: 30 0RF Continued albuterol sulfate 2.5 mg /3 mL (0.083 %) solution for nebulization 2.5 mg inhalation Q6H PRN (Reason: Dyspnea) cholecalciferol (vitamin D3) 50 mcg (2,000 unit) capsule 50 mcg PO DAILY multivitamin Tablet 1 tab PO DAILY prednisone 10 mg tablet 10 mg PO DAILY lidocaine 5 % adhesive patch,medicated 1 patch topical DAILY PRN (Reason: Pain) Rx Instructions: leave on most painful area for up to 12 hrs [email or web address] Aerosphere 160-9-4.8 mcg/actuation HFA aerosol inhaler 2 inh inhalation BID Qty: 10.7 3RF prochlorperazine maleate [Compazine] 10 mg tablet 10 mg PO Q4H PRN (Reason: Mild Nausea) Qty: 30 3RF dronabinol 5 mg capsule 5 mg PO BID Qty: 60 0RF Rx Instructions: administer before lunch and evening meal/dinner benzonatate 100 mg capsule 100 mg PO BID PRN (Reason: cough) Qty: 20 3RF hydrocodone-acetaminophen 10-325 mg tablet 1 tab PO QID PRN (Reason: pain) 30 Days Qty: 120 0RF omeprazole 20 mg Tablet,Delayed Release (Dr/Ec) 20 mg PO DAILY bee pollen 1,000 mg Tablet,Chewable 1,000 mg PO BID lorazepam 1 mg tablet 0.5 - 1 mg PO Q6H PRN (Reason: Severe Nausea) Qty: 30 3RF levofloxacin 750 mg tablet 750 mg PO DAILY 5 Days Qty: 5 0RF tramadol 50 mg tablet 50 mg PO Q46H PRN (Reason: Pain) duloxetine 20 mg Capsule,Delayed Release(Dr/Ec) 20 mg PO DAILY Changed rosuvastatin 20 mg tablet 20 mg PO DAILY Qty: 30 0RF Discontinued prednisone 50 mg tablet 50 mg PO DAILY 5 Days Qty: 5 0RF Discharge Orders: Discharge Order (Routine); Ordered 05/10/23 Ordered By: Yoni Gupta Referrals: Ruthy Piña MD [Primary Care Provider] - 4-7 days (Visit with your primary care provider about your depression. Take 40 mg of prednisone a day for 3 days, then resume your 10 mg a day Finish up your course of Levaquin. This was already prescribed.) Discharge Diet: Cardiac Discharge Activity: Increase activity as tolerated Patient Instructions: Opioid Safety Activity Restrictions/Additional Instructions: Take all medicine as prescribed. Follow-up with your primary care provider 3 to 5 days. Discussed her depression at this visit. 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
== END 2023-05-10 15:45 | disposition home or self-care (01) | DRG 281 ==
LOC: ER 08:47 → CSU 14:56
PROVIDERS: Internal Medicine; Admitting Provider Internal Medicine; Emergency Provider Family Medicine; PCP Family Medicine; Visit Provider Internal Medicine
PROC: B2111ZZ Fluoroscopy of Multiple Coronary Arteries using Low Osmolar Contrast (ICD-10-PCS; principal; 2023-05-10 08:05)
DX: I21.4 Non-ST elevation (NSTEMI) myocardial infarction (principal); C34.11 Malignant neoplasm of upper lobe, right bronchus or lung; R45.851 Suicidal ideations; J43.9 Emphysema, unspecified; F32.A Depression, unspecified; I25.119 Atherosclerotic heart disease of native coronary artery with unspecified angina pectoris; Z79.51 Long term (current) use of inhaled steroids; Z79.52 Long term (current) use of systemic steroids; Z79.891 Long term (current) use of opiate analgesic; Z79.899 Other long term (current) drug therapy; E78.5 Hyperlipidemia, unspecified; M81.0 Age-related osteoporosis without current pathological fracture; Z66 Do not resuscitate; Z87.891 Personal history of nicotine dependence; Z95.828 Presence of other vascular implants and grafts; I73.9 Peripheral vascular disease, unspecified
CPT/HCPCS: 36415; 36416; 71045; 71275; 80053; 81001; 82962; 83735; 84443; 84484; 85025; 85730; 87635; 92978; 93005; 93306; 93458; 94640; 96365; 96367; 96375; 99152; 99153; 99285; C1753; C1769; C1887; C1894; J1100; J1644; J2250; J2270; J2930; J3010; J3490; J7030; J7512; J7626; Q0163; Q0167; Q9967

== ENCOUNTER → 2023-06-12 15:21 | Outpatient (BNVA) | payer OTHER, SELFPAY | PROVIDERS: PCP Family Medicine; Visit Provider Surgery | DX: Z95.828 Presence of other vascular implants and grafts (principal) | CPT/HCPCS: 99203; 99213 ==

== ENCOUNTER 2023-06-13 15:03 | Outpatient (CLI) | payer OTHER, SELFPAY ==
--- NOTE | 2023-06-13 12:30 | PETR_ITS ---
PROCEDURE INFORMATION: Exam: PET/CT Skull Base to Mid-thigh Exam date and time: 06/13/2023 1:59 PM Age: 73 years old Clinical indication: Condition or disease; Primary cancer: Lung cancer, malignant neoplasm of intrathoracic lymph nodes LABS AND CLINICAL REPORTS: Glucose: 88 mg/dl Treatment strategy for malignancy (PET staging): Restaging (PS) TECHNIQUE: Imaging protocol: Following at least four-hour fasting and following the injection of radiopharmaceutical, low dose CT images were obtained. Then, PET images were obtained. Attenuation corrected images were constructed using the CT scan. Fused images of PET and CT were reviewed. The standardized uptake values (SUV) reported below are maximum values within a region of interest, expressed in gm/ml. Exam includes orbital meatal line to mid-thigh. Radiopharmaceutical: 9.67 mCi F-18 FDG (Fluorodeoxyglucose), IV. Time of imaging post radiopharmaceutical administration: 1 hour Injection site: Not specified COMPARISON: CTA chest 05/09/2023, CT chest 02/13/2023, MRI head 12/01/2022, [id number] 10/22/2022 9:03 AM FINDINGS: Tubes, catheters and devices: A left internal jugular central venous port catheter terminates in the SVC. Brain: Visualized brain has normal physiologic uptake. Salivary glands: Along the superior aspect of the right parotid gland a rounded focus of elevated uptake is noted, SUV max 5.4 (previously 5.5). Artifact somewhat limits assessment of this region on the current and prior PET-CT however there is a probable similar corresponding approximately 8 mm soft tissue density nodule in this location on series 3, image 22. This appears to correspond to a likely mildly enhancing T1 and T2 hypointense nodule on the comparison MRI head. Pharynx: No abnormal uptake. Larynx: No abnormal uptake. Lungs, pleura and trachea: Mild biapical pleural scarring is noted. There are moderate bilateral centrilobular emphysematous changes. Non radiotracer avid ovoid irregularly marginated soft tissue density in the right upper lobe measuring 2.0 x 0.8 cm on series 3, image 92 is not significantly radiotracer avid, SUV max 1.1. This is in the region of the previously noted radiotracer avid mass on the prior PET-CT which is significantly decreased in size since the prior PET-CT (previously measuring 2.8 x 2.0 cm) and is similar in size compared with 05/09/2023. Heart: Normal physiologic uptake. Mediastinal space: No abnormal uptake. Liver: No abnormal uptake. Gallbladder and bile ducts: No abnormal uptake. Pancreas: No abnormal uptake. Spleen: No abnormal uptake. Adrenal glands: No abnormal uptake. Kidneys and ureters: Normal physiologic uptake. Stomach and bowel: No abnormal uptake. Vasculature: No abnormal uptake. There are diffuse atherosclerotic changes. An infrarenal abdominal aortic stent graft with limbs extending into the bilateral common iliac arteries is present. Lymph nodes: No abnormal uptake. No lymphadenopathy in the head, neck, chest, abdomen, pelvis, and extremities. A 5 mm right hilar lymph node on series 3, image 98 is not radiotracer avid (previously measuring 1 cm with a previous SUV max 5.0 on the prior PET-CT). Bones/joints: No abnormal uptake in the visualized axial and appendicular skeleton. There are old appearing postoperative changes of the right iliac bone. Non radiotracer avid mixed lucent and sclerotic lesion in the left femoral head is noted measuring 1 cm in diameter on series 3, image 227 compatible with a benign finding. There is mild diffuse vertebral body spondylosis. Soft tissues: See Salivary glands finding. METRICS: Mediastinal blood pool: SUV max 1.9 PET/PET skulltothigh SUBSEQ [id number] IMPRESSION: 1. Interval decrease in size of a known treated malignancy in the right upper lobe. With the prior PET-CT which is no longer radiotracer avid compatible with a response to therapy. 2. A focus of similar to minimally decreased abnormal elevated uptake within a probable approximately 8 mm nodule in the right parotid gland region is noted concerning for possible malignancy, either metastatic or representing an additional primary parotid malignancy. 3. Interval decrease in size of a previously noted radiotracer avid right hilar lymph node with interval complete resolution of uptake consistent with a response to therapy. 4. Additional nonurgent findings as detailed above.
== END 2023-06-13 15:04 | disposition home or self-care (01) ==
LOC: RAD 15:03
PROVIDERS: PCP Family Medicine; Visit Provider Internal Medicine Medical Oncology
DX: C34.11 Malignant neoplasm of upper lobe, right bronchus or lung (principal); C77.1 Secondary and unspecified malignant neoplasm of intrathoracic lymph nodes
CPT/HCPCS: 78815; A9552

== ENCOUNTER 2023-06-17 01:41 | Emergency (ER) | payer OTHER, SELFPAY ==
[2023-06-17 01:41] VITALS: BP 145/93; PULSE 85; RESP 20; TEMP 36.4; O2SAT 95
[2023-06-17 01:48] VITALS: BP 145/93; PULSE 100; RESP 32; O2SAT 96
--- NOTE | 2023-06-17 02:05 | XRR_ITS ---
PROCEDURE INFORMATION: Exam: XR Chest Exam date and time: 06/17/2023 2:07 AM Age: 73 years old Clinical indication: Shortness of breath; Prior surgery; Surgery date: 6+ months; Surgery type: Chest port. Aortic graft. Kyphoplasty. Patient HX: C/O SOB. History of copd and non small cell lung cancer to RT lung. TECHNIQUE: Imaging protocol: Radiologic exam of the chest. Views: 1 view. COMPARISON: CR XR chest 1V portable [id number] 05/09/2023 8:36 AM FINDINGS: Tubes, catheters and devices: Left Port-A-Cath is unchanged. Lungs: Stable chronic emphysematous changes. Faint right upper lobe density correlating to previously treated right upper lobe neoplasm. No acute infiltrate or pulmonary edema. Pleural spaces: Unremarkable. No pleural effusion. No pneumothorax. Heart/Mediastinum: Cardiomediastinal silhouette is stable and unremarkable. Bones/joints: No acute osseous abnormality. XR/XR chest 1V portable [id number] IMPRESSION: 1. No acute findings. 2. Stable chronic emphysematous changes. 3. Stable faint right upper lobe density, correlating to previously treated right upper lobe neoplasm.
[2023-06-17] MEDS: ipratropium-albuterol 3 mL Neb INHALATION (02:40)
[2023-06-17 02:41] VITALS: PULSE 84; RESP 17; O2SAT 95
[2023-06-17] MEDS: methylPREDNISolone sod succ 125 MG in water for injection-sterile 2 ML 24 MG IVP (02:45)
[2023-06-17 02:46] LABS: Basophils # 0.1 10^3/uL (0.0-0.1); Basophils % 0.9 %; Eosinophils # 0.3 10^3/uL (0.0-0.8); Eosinophils % 1.9 %; Hematocrit 44.9 % (37-53); Lymphocytes # 2.3 10^3/uL (0.8-4.8); Lymphocytes % 17.9 %; Mean Corpuscular HGB Conc 34.7 g/dL (30-55); Mean Corpuscular Hemoglobin 32.3 pg (27-33); Mean Platelet Volume 9.1 fL (7.4-10.4); Monocytes % 7.3 %; Neutrophils # 9.26 10^3/uL (1.8-7.7); Neutrophils % 71.6 %; Nucleated Red Blood Cells % 0 %; Platelet Count 263 10^3/cmm (157-399); Red Blood Count 4.83 10^6/uL (3.85-5.65); White Blood Count 12.94 10^3/uL (3.29-11.43)
--- NOTE | 2023-06-17 02:47 | ED_ITS ---
HPI - SOB/Dyspnea General: Chief Complaint: Shortness of Breath/Dyspnea Stated Complaint: SOB Time Seen by Provider: 06/17/23 01:56 History of Present Illness: HPI Narrative: 73-year-old male gentleman with a history of non-small cell carcinoma of the lung, and COPD. He does not use oxygen at home. He presents with shortness of breath increasing over the last 2 days or so. He has had a cough with clear sputum production. No fever. No significant chest discomfort. MD elicited complaint: shortness of breath Pertinent past history: COPD and other Associated symptoms: Reports nausea; Deny abdominal pain, fever(s), palpitations or vomiting Review of Systems Const: Denies: fever(s) or chills Eyes: Denies: change in vision ENMT: Reports: throat pain Card: Denies: palpitations Resp: Reports: dyspnea and productive cough GI: Reports: nausea; Denies: abdominal pain or vomiting Psych: Reports: anxiety PFSH ED PFSH: Medical History Compression fracture of thoracic vertebra COPD (chronic obstructive pulmonary disease) Dyslipidemia GERD (gastroesophageal reflux disease) HTN (hypertension), benign Hyperlipidemia Non-small cell lung cancer Osteoporosis PAD (peripheral artery disease) 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, stage II Surgical History H/O circumcision H/O colonoscopy 2014 H/O esophagogastroduodenoscopy History of bronchoscopy (11/15/22) Navigational bronchoscopy/EBUS History of cataract extraction History of hip surgery History of kyphoplasty (03/04/22) T5 kyphoplasty Port-A-Cath in place S/P AAA (abdominal aortic aneurysm) repair Family History Other CAD (coronary artery disease) Cancer Diabetes Hypertension Stroke Denies family history of Anesthesia complication Bleeding disorder Social History Smoking and tobacco/nicotine status: former use of tobacco/nicotine Quit status (tobacco/nicotine): has quit using Year quit tobacco: 2019 Former quit date comment: 1.5 ppd X 54 years, Alcohol intake: former Substance/Drug Use: never Household members: significant other Marital status: Single Current occupational status: retired Physical Exam Const: COMMON NORMALS: no acute distress GENERAL APPEARANCE: cooperative; not ill appearing and not frail appearing HENMT: COMMON NORMALS: normocephalic, atraumatic and Normal external nose present HEAD & SCALP: normocephalic and atraumatic FACE & SINUS: normal facial exam and face symmetric NOSE: Normal external nose present Eye: COMMON NORMALS: Equal, round and reactive pupils present and EOMs intact bilaterally PUPIL: Yes Equal, round and reactive pupils present Neck/C-Spine: GENERAL: Yes trachea midline Chest: CHEST: Yes Symmetrical chest wall rise Resp: COMMON NORMALS: normal respiratory effort, No retractions, No use of accessory muscles and clear to auscultation bilaterally AUSCULTATION: clear to auscultation bilaterally Cardio: COMMON NORMALS: regular rate and regular rhythm RATE: regular rate RHYTHM: regular rhythm GI: COMMON NORMALS: Normal to inspection, nondistended, normoactive bowel sounds present Extremity: COMMON NORMALS: no pedal edema Neuro: CHUCK COMA SCALE: document GCS findings Chuck coma scale eye opening: Spontaneous [place] coma scale verbal response: Orientated Chuck coma scale motor response: Obey commands [place] coma scale total score: 15 SENSORY EXAM: Yes extremities (intact) Psych: COMMON NORMALS: speech normal SPEECH: Yes normal speech Skin: COMMON NORMALS: no rashes or lesions noted GENERAL SKIN EXAM: no rashes or lesions noted Course Vital Signs: Vital signs: Vital Signs Temperature 97.6 F 06/17/23 01:41 Pulse Rate 89 06/17/23 04:57 Respiratory Rate 18 06/17/23 04:57 Blood Pressure 145/93 06/17/23 01:48 Pulse Oximetry 96 06/17/23 04:57 Oxygen Delivery Me thod Room Air 06/17/23 02:41 MDM - SOB/Dyspnea Medical Decision Making 73-year-old male with shortness of breath, feeling much improved now. He is on room air satting 96%. Vital signs are stable. White blood cell count is 13. Chest x-ray shows no acute findings but chronic emphysematous findings and a stable neoplasm. Blood gas shows a normal pH with PCO2 of 45. BNP is only 136. The patient does not have chest pain. On reinterview, he is feeling much improved. We will keep him on his daily prednisone, and give him Medrol on top of that for exacerbation. He will be covered with antibiotics, although he is on a 3 day/week prophylactic regimen. He knows to return for any worsening symptoms. Close outpatient follow-up. Lab Data 06/17/23 01:40 06/17/23 01:40 Labs/Radiology: Radiology Impressions Chest X-Ray 06/17/23 02:05 IMPRESSION: 1. No acute findings. 2. Stable chronic emphysematous changes. 3. Stable faint right upper lobe density, correlating to previously treated right upper lobe neoplasm. Laboratory Results WBC 12.94 10^3/uL (3.29-11.43) H 06/17/23 01:40 RBC 4.83 10^6/uL (3.85-5.65) 06/17/23 01:40 Hgb 15.60 g/dL (11.27-16.99) 06/17/23 01:40 Hct 44.9 % (37-53) 06/17/23 01:40 MCV 93.0 fl (82-101) 06/17/23 01:40 MCH 32.3 pg (27-33) 06/17/23 01:40 MCHC 34.7 g/dL (30-55) 06/17/23 01:40 RDW 12.0 % (12.1-15.1) L 06/17/23 01:40 Plt Count 263 10^3/cmm (157-399) 06/17/23 01:40 MPV 9.1 fL (7.4-10.4) 06/17/23 01:40 Neut % (Auto) 71.6 % 06/17/23 01:40 Lymph % (Auto) 17.9 % 06/17/23 01:40 [place] % (Auto) 7.3 % 06/17/23 01:40 Eos % (Auto) 1.9 % 06/17/23 01:40 Baso % (Auto) 0.9 % 06/17/23 01:40 Neut # (Auto) 9.26 10^3/uL (1.8-7.7) H 06/17/23 01:40 Lymph # (Auto) 2.3 10^3/uL (0.8-4.8) 06/17/23 01:40 [place] # (Auto) 1.0 10^3/uL (0.2-0.9) H 06/17/23 01:40 Eos # (Auto) 0.3 10^3/uL (0.0-0.8) 06/17/23 01:40 Baso # (Auto) 0.1 10^3/uL (0.0-0.1) 06/17/23 01:40 Nucleated RBC % (auto) 0 % 06/17/23 01:40 Nucleated RBCs # 0.0 /100WBC 06/17/23 01:40 Specimen Type Arterial 06/17/23 02:41 Sample Site Brachial, right 06/17/23 02:41 ABG pH 7.43 (7.35-7.45) 06/17/23 02:41 ABG pCO2 45.1 mmHg (35-45) H 06/17/23 02:41 ABG pO2 66.0 mmHg (80.0-100.0) L 06/17/23 02:41 ABG PO2/FiO2 Ratio 0 06/17/23 02:41 ABG HCO3 29.9 mmol/L (22-26) H 06/17/23 02:41 ABG Base Excess 4.7 mmol/L (-2.0-2.0) H 06/17/23 02:41 William Test N/a 06/17/23 02:41 Hematocrit 44.1 % (42-52) 06/17/23 02:41 Hgb O2 Saturation 92.9 % (95-100) L 06/17/23 02:41 Carboxyhemoglobin 1.9 %THgb (0.4-20.1) 06/17/23 02:41 Methemoglobin 0.4 % (0.4-1.5) 06/17/23 02:41 Total Hemoglobin 14.4 g/dL (14-18) 06/17/23 02:41 O2 Delivery Device Room air 06/17/23 02:41 FiO2 21.0 % 06/17/23 02:41 Process Manufacturing Engineer ID Ed 06/17/23 02:41 Sodium 142 mmol/L (136-145) 06/17/23 01:40 Potassium 4.0 mmol/L (3.5-5.1) 06/17/23 01:40 Chloride 103 mmol/L (98-107) 06/17/23 01:40 Carbon Dioxide 30 mmol/L (22-29) H 06/17/23 01:40 Anion Gap 13.0 (5-19) 06/17/23 01:40 BUN 12 mg/dL (8-23) 06/17/23 01:40 Creatinine 1.0 mg/dL (0.7-1.2) 06/17/23 01:40 GFR Calculation Not Reportable 06/17/23 01:40 Glucose 86 mg/dL (65-115) 06/17/23 01:40 Calculated Osmolality 293 mOsm/kg (285-295) 06/17/23 01:40 Calcium 9.8 mg/dL (8.5-10.5) 06/17/23 01:40 Total Bilirubin 0.2 mg/dL (0.15-1.2) 06/17/23 01:40 AST 23 U/L (0-40) 06/17/23 01:40 ALT 29 U/L (0-41) 06/17/23 01:40 Alkaline Phosphatase 68 U/L (40-130) 06/17/23 01:40 NT-Pro-B Natriuret Pep 136 pg/mL (0-125) H 06/17/23 01:40 Total Protein 6.9 g/dL (6.6-8.7) 06/17/23 01:40 Albumin 4.3 g/dL (3.5-5.2) 06/17/23 01:40 Globulin 2.6 g/dL (1.3-4.6) 06/17/23 01:40 All radiology interpretation(s) finalized by discharge Discharge Plan Discharge Patient Disposition: Home Clinical Impression: Acute exacerbation of chronic obstructive airways disease Condition: Stable Prescriptions: New Medrol (Taj) 4 mg tablets,dose pack See Rx Instructions .ROUTE .COMPLEX Qty: 21 0RF Rx Instructions: orally per package directions azithromycin 250 mg tablet See Rx Instructions .ROUTE .COMPLEX Qty: 6 0RF Rx Instructions: For 250 mg dose pack: take 500 mg today (day 1), then 250 mg for 4 days (days 2-5) Discontinued prednisone 20 mg Tablet 40 mg PO DAILY Qty: 6 0RF No Action albuterol sulfate 2.5 mg /3 mL (0.083 %) solution for nebulization 2.5 mg inhalation Q6H PRN (Reason: Dyspnea) cholecalciferol (vitamin D3) 50 mcg (2,000 unit) capsule 50 mcg PO DAILY multivitamin Tablet 1 tab PO DAILY prednisone 10 mg tablet 10 mg PO DAILY lidocaine 5 % adhesive patch,medicated 1 patch topical DAILY PRN (Reason: Pain) Rx Instructions: leave on most painful area for up to 12 hrs Breztri Aerosphere 160-9-4.8 mcg/actuation HFA aerosol inhaler 2 inh inhalation BID Qty: 10.7 3RF prochlorperazine maleate [Compazine] 10 mg tablet 10 mg PO Q4H PRN (Reason: Mild Nausea) Qty: 30 3RF dronabinol 5 mg capsule 5 mg PO BID Qty: 60 0RF Rx Instructions: administer before lunch and evening meal/dinner benzonatate 100 mg capsule 100 mg PO BID PRN (Reason: cough) Qty: 20 3RF hydrocodone-acetaminophen 10-325 mg tablet 1 tab PO QID PRN (Reason: pain) 30 Days Qty: 120 0RF lorazepam 0.5 mg tablet 0.5 - 1 mg PO Q6H PRN (Reason: severe nausea) Qty: 60 3RF omeprazole 20 mg Tablet,Delayed Release (Dr/Ec) 20 mg PO DAILY bee pollen 1,000 mg Tablet,Chewable 1,000 mg PO BID tramadol 50 mg tablet 50 mg PO Q46H PRN (Reason: Pain) duloxetine 20 mg Capsule,Delayed Release(Dr/Ec) 20 mg PO DAILY isosorbide mononitrate 30 mg Tablet Extended Release 24 Hr 30 mg PO DAILY Qty: 30 0RF aspirin 325 mg Tablet,Delayed Release (Dr/Ec) 325 mg PO DAILY Qty: 30 0RF metoprolol tartrate 25 mg Tablet 12.5 mg PO BID@0900,2100 Qty: 30 0RF rosuvastatin 20 mg tablet 20 mg PO DAILY Qty: 30 0RF Discharge Orders: Discharge ED (Routine); Ordered 06/17/23 Ordered By: Ritesh Bryan Referrals: Ruthy Piña MD [Primary Care Provider] - 4-7 days Patient Instructions: COPD (Chronic Obstructive Pulmonary Disease) (ED), Opioid Safety, Pain Management Activity Restrictions/Additional Instructions: Continue your regular medication. New medications as directed. Return for worsening shortness of breath despite treatment, fever despite 2-3 doses of antibiotics, chest pain, other concerning symptoms. Coding Level of Care Code ED Director Of Sales And Marketing for Brandy Reece
[2023-06-17 02:48] VITALS: PULSE 83
[2023-06-17 02:51] LABS: ABG PCO2 45.1 mmHg (35-45); ABG PH Result 7.43 (7.35-7.45); Arterial Blood Gas Hematocrit 44.1 % (42-52); Base Excess ABG 4.7 mmol/L (-2.0-2.0); Blood Gas Sample Type Arterial; Carboxyhemoglobin 1.9 %THgb (0.4-20.1); HCO3 ABG 29.9 mmol/L (22-26); HGB O2 Sat 92.9 % (95-100); Methemoglobin 0.4 % (0.4-1.5); Total Hemoglobin 14.4 g/dL (14-18)
[2023-06-17 02:52] LABS: Blood Gas Operator Identificat ED; Blood Gas Sample Site Brachial, right; Oxygen Device ROOM AIR; PO2 FiO2 Ratio Arterial Blood 0
[2023-06-17 03:06] LABS: Alanine Aminotransferase 29 U/L (0-41); Albumin Level 4.3 g/dL (3.5-5.2); Alkaline Phosphatase 68 U/L (40-130); Aspartate Amino Transferase 23 U/L (0-40); Blood Urea Nitrogen 12 mg/dL (8-23); Calcium 9.8 mg/dL (8.5-10.5); Carbon Dioxide 30 mmol/L (22-29); Chloride 103 mmol/L (98-107); Creatinine Clr Calc Pharmacy 47.5518; Globulin 2.6 g/dL (1.3-4.6); Glucose 86 mg/dL (65-115); NT Pro B Type Natriuretic Pept 136 pg/mL (0-125); Osmolality Calculated 293 mOsm/kg (285-295); Sodium 142 mmol/L (136-145); Total Bilirubin 0.2 mg/dL (0.15-1.2); Total Protein 6.9 g/dL (6.6-8.7)
[2023-06-17 04:57] VITALS: PULSE 89; RESP 18; O2SAT 96
== END 2023-06-17 04:55 | disposition home or self-care (01) ==
PROVIDERS: Emergency Provider Emergency Medicine; PCP Family Medicine
DX: J44.1 Chronic obstructive pulmonary disease with (acute) exacerbation (principal); Z79.82 Long term (current) use of aspirin; Z87.891 Personal history of nicotine dependence; E78.5 Hyperlipidemia, unspecified; I10 Essential (primary) hypertension; E78.49 Other hyperlipidemia; Z85.118 Personal history of other malignant neoplasm of bronchus and lung
CPT/HCPCS: 36600; 71045; 80053; 82805; 83880; 85025; 94640; 96374; 99284; J2930

== ENCOUNTER 2023-06-21 10:17 | Day surgery (SDC) | payer OTHER, SELFPAY ==
[2023-06-21] VITALS (7 sets, daily range): BP systolic 108–140; BP diastolic 68–87; PULSE 77–85; RESP 16–18; TEMP 36.1–36.9; O2SAT 95–97; BMI 15.9
--- NOTE | 2023-06-21 10:36 | W.PM.OPSUD ---
Surgery/Procedure H&P Update DATE OF PROCEDURE: June 21, 2023 DATE H&P PERFORMED: 06/12/23 H&P UPDATE INFORMATION: I have reviewed H&P completed within last 30 days, I have examined patient prior to procedure, No changes to prior documentation and H&P is in [facility] EMR on date indicated PLANNED PROCEDURE: Operation Date: 06/21/23 11:55 Proposed Procedures p Portacath Removal [id number](Not Applicable) - Petros Ordoñez MD
[2023-06-21] MEDS: sodium chloride 0.9% 1,000 ML 30 ML IV (10:52)
--- NOTE | 2023-06-21 12:42 | ANES.PREANE2 ---
Pre-Anesthetic Assessment Height/Weight: Height 1.78 m Weight 50.349 kg Temp Pulse Resp BP Pulse Ox O2 Del Method 98.1 F 77 18 127/87 95 Room Air 06/21/23 10:46 06/21/23 10:46 06/21/23 10:46 06/21/23 10:46 06/21/23 10:46 06/21/23 10:46 Operation Date: 06/21/23 11:55 Proposed Procedures p Portacath Removal [id number](Not Applicable) - Petros Ordoñez MD Familial anesthetic complications: none Was Beta Kami taken within 24 hours: N/A Was Clonidine taken within 24 hours: N/A Last intake: Intake Last Liquid Date 06/20/23 Last Liquid Time 23:00 Last Solid Date 06/20/23 Last Solid Time 18:00 Social No alcohol and No tobacco Exam alert, oriented x 3, clear to auscultation bilaterally and regular rate & rhythm Airway Mallampati: Class II Dentition: full Comments: Comments: [place] Pulmonary Chronic Obstructive Pulmonary Disease NSCC CV/HEM Coronary Artery Disease (Mod LAD stenosis found on cath, medical management) and Myocardial Infarction (NSTEMI) Metabolic Hyperlipidemia Neuropsych s/p CEA Anesthetic Plan ASA status: 4 Anesthesia: MAC Risk of > 500 ml blood loss (7ml/kg in children): No Medications/Allergies Home Medications Medication Instructions Recorded Confirmed Last Taken Type albuterol sulfate 2.5 mg/3 mL 2.5 mg inhalation Q6H PRN Dyspnea 07/07/20 06/21/23 06/21/23 History (0.083 %) solution for nebulization cholecalciferol (vitamin D3) 50 50 mcg PO DAILY 07/07/20 06/21/23 06/20/23 History mcg (2,000 unit) capsule multivitamin 1 tab PO DAILY 07/07/20 06/21/23 06/20/23 History bee pollen 1,000 mg chewable tablet 1,000 mg PO BID 08/21/20 06/21/23 06/20/23 History omeprazole 20 mg tablet,delayed 20 mg PO DAILY 08/21/20 06/21/23 06/20/23 History release lidocaine 5 % topical patch 1 patch topical DAILY PRN Pain 11/11/22 06/21/23 06/19/23 History prednisone 10 mg tablet 10 mg PO DAILY 11/11/22 06/21/23 06/20/23 History prochlorperazine maleate 10 mg 10 mg PO Q4H PRN Mild Nausea #30 12/13/22 06/21/23 Unknown Rx tablet (Compazine) tabs dronabinol 5 mg capsule 5 mg PO BID #60 caps 01/06/23 06/21/23 06/20/23 Rx benzonatate 100 mg capsule 100 mg PO BID PRN cough #20 caps 02/14/23 06/21/23 06/20/23 Rx budesonide 160 mcg-glycopyr 9 2 inh inhalation BID #10.7 grams 03/28/23 06/21/23 06/20/23 Rx mcg-formot 4.8 mcg/actuation HFA inhaler (Breztri Aerosphere) hydrocodone 10 mg-acetaminophen 1 tab PO QID PRN pain 30 days #120 05/05/23 06/21/23 06/19/23 Rx 325 mg tablet tabs duloxetine 20 mg capsule,delayed 20 mg PO DAILY 05/09/23 06/21/23 06/20/23 History release tramadol 50 mg tablet 50 mg PO Q46H PRN Pain 05/09/23 06/21/23 06/20/23 History aspirin 325 mg tablet,delayed 325 mg PO DAILY #30 tabs 05/10/23 06/21/23 06/20/23 Rx release isosorbide mononitrate 30 mg 30 mg PO DAILY #30 tabs 05/10/23 06/21/23 06/20/23 Rx tablet,extended release 24 hr metoprolol tartrate 25 mg tablet 12.5 mg PO BID@0900,2100 #30 tabs 05/10/23 06/21/23 06/20/23 Rx rosuvastatin 20 mg tablet 20 mg PO DAILY #30 tabs 05/10/23 06/21/23 06/20/23 Rx lorazepam 0.5 mg tablet 0.5 - 1 mg PO Q6H PRN severe 06/08/23 06/21/23 Unknown Rx nausea #60 tabs azithromycin 250 mg tablet See Rx Instructions PO .COMPLEX #6 06/17/23 06/21/23 06/20/23 Rx tabs methylprednisolone 4 mg tablets in See Rx Instructions PO .COMPLEX 06/17/23 06/21/2323 Rx a dose pack (Medrol (Taj)) #21 ea Allergies Allergy/AdvReac Type Severity Reaction Status Date / Time adhesive Allergy ALGY-Rash Verified 06/21/23 10:35 latex Allergy ALGY-Bliste Verified 06/21/23 10:35 r tetracycline AdvReac ADR-Halluci Verified 06/21/23 10:35 nating Current Medications Generic Name Dose Route Start Last Admin Trade Name Freq PRN Reason Stop Dose Admin Sodium Chloride 1,000 mls @ 30 mls/hr 06/21/23 10:30 06/21/23 10:52 Sodium Chloride 0.9% IV 06/22/23 10:29 30 mls/hr .Q24H DAVIS Administration PFSH Anesthesia Medical History Compression fracture of thoracic vertebra COPD (chronic obstructive pulmonary disease) Dyslipidemia GERD (gastroesophageal reflux disease) HTN (hypertension), benign Hyperlipidemia Non-small cell lung cancer Osteoporosis PAD (peripheral artery disease) 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, stage II Surgical History H/O circumcision H/O colonoscopy 2014 H/O esophagogastroduodenoscopy History of bronchoscopy (11/15/22) Navigational bronchoscopy/EBUS History of cataract extraction History of hip surgery History of kyphoplasty (03/04/22) T5 kyphoplasty Port-A-Cath in place S/P AAA (abdominal aortic aneurysm) repair Family History Other CAD (coronary artery disease) Cancer Diabetes Hypertension Stroke Denies family history of Anesthesia complication Bleeding disorder Social History Smoking and tobacco/nicotine status: former use of tobacco/nicotine Quit status (tobacco/nicotine): has quit using Year quit tobacco: 2019 Former quit date comment: 1.5 ppd X 54 years, Alcohol intake: former Substance/Drug Use: never Household members: significant other Marital status: Single Current occupational status: retired Data Anesthesia Cardiac Studies: Echocardiogram 05/09/23
[2023-06-21] MEDS: ceFAZolin 2,000 MG in sodium chloride 0.9% (plus) 50 ML 100 MG IV (14:40)
[2023-06-21] MEDS: lidocaine-epi 1% PF 1:200,000 30 mL SDV INJECTION (14:53)
[2023-06-21] MEDS: BUPivacaine 0.25% INJ 10 mL INJECTION (14:53)
--- NOTE | 2023-06-21 15:10 | P.OP_ITS ---
Operative Report Date of procedure: June 21, 2023 Pre-op diagnosis: Presence of port cath Post-op diagnosis: Same Procedure done: excision of Port-A-Cath Specimens removed/disposition: Bard Port-A-Cath Surgeon: Petros Ordoñez MD Emergency Room Registered Nurse: CORETTA OR Staff Estimated blood loss: 5cc Brief History: patient history of Port-A-Cath placement for chemotherapy, patient has completed therapy no longer receives infusions, in addition to that has noted to be eroding through the skin. Therefore she presented for removal. The discussion risk benefits as noted on my preop note we decided to proceed. Procedure: Patient was brought into the OR, placed in the supine position. Moderate saira tion was given. The left upper chest was prepped and draped in the usual sterile fashion. Timeout was conducted. Local anesthesia was infiltrated in the area around the Port-A-Cath. Elliptical incision was made in close in the previous area of incision, this was deepened to the level of the subcutaneous tissue and excised. It was then circumferentially dissected with electrocautery. While holding pressure in the left IJ the Port-A-Cath was removed. The capsule was then excised with electrocautery. The tract was obliterated with a 3-0 Vicryl [id number]-macyi suture. Hemostasis was verified. The wound was then closed in layers using #3-0 Vicryl for the subcutaneous tissue and #4 Monocryl for the skin. Dermabond was applied. At the end of the procedure all counts were correct, the patient tolerated well the procedure and was transferred to the PACU in a stable condition
--- NOTE | 2023-06-21 16:05 | ANE.PACU2 ---
Inpatient post-anesthesia follow up: Airway intact: Yes Vital signs: Temperature 98.4 F Pulse Rate 82 Respiratory Rate 16 Blood Pressure 140/81 Pulse Oximetry 96 Oxygen Delivery Me thod Room Air Oxygen Flow Rate Fraction of Inspir ed Oxygen Hydration adequate: Yes Nausea and vomiting: No Pain level: 1 Mental status: Baseline
== END 2023-06-21 16:05 | disposition home or self-care (01) ==
PROVIDERS: PCP Family Medicine; Visit Provider Surgery
PROC: (CPT 36589; principal; 2023-06-21 11:45)
DX: Z45.2 Encounter for adjustment and management of vascular access device (principal); J44.9 Chronic obstructive pulmonary disease, unspecified; I25.10 Atherosclerotic heart disease of native coronary artery without angina pectoris; E78.5 Hyperlipidemia, unspecified; Z85.118 Personal history of other malignant neoplasm of bronchus and lung; Z87.891 Personal history of nicotine dependence
CPT/HCPCS: 36590; J0690; J2250; J2704; J3010; J3490; J7030

== ENCOUNTER 2023-07-03 13:15 | Emergency (ER) | payer OTHER, SELFPAY ==
[2023-07-03 13:20] VITALS: BP 157/96; PULSE 83; RESP 16; TEMP 36.5; O2SAT 98; BMI 15.9
--- NOTE | 2023-07-03 13:26 | ECG_ITS ---
[facility] Test Date: 2023-07-03 Pat Name: Brian Russo Department: Room: Gender: Male Recruitment Assistant: : 1950 Requested By: John Martinez Order Number: [id number] Renita MD: Sajan Kaufman M.D. Measurements Intervals [place] Rate: 75 P: 0 CO: 0 QRS: 77 QRSD: 89 T: 74 QT: 368 QTc: 413 Interpretive Statements Sinus rhythm with frequent PACs Nonspecific ST changes Compared to ECG 05/09/2023 11:18:44 No significant change Electronically Signed On 07-04-2023 17:02:13 WATER SERVICE DISPATCHER by Sajan Kaufman M.D. [email or web address]
--- NOTE | 2023-07-03 13:26 | XRR_ITS ---
PROCEDURE INFORMATION: Exam: XR Chest Exam date and time: 07/03/2023 1:36 PM Age: 73 years old Clinical indication: Dyspnea and shortness of breath; Prior surgery; Surgery date: 6+ months; Surgery type: Port kypho; Patient HX: HX of lung cancer TECHNIQUE: Imaging protocol: Radiologic exam of the chest. Views: 1 view. COMPARISON: CR (CHEST, ) 06/17/2023 2:07 AM FINDINGS: Lungs: Unremarkable. No consolidation. Pleural spaces: Unremarkable. No pleural effusion. No pneumothorax. Heart/Mediastinum: Unremarkable. No cardiomegaly. Bones/joints: Unremarkable. XR/XR chest 1V portable [id number] IMPRESSION: No acute findings.
--- NOTE | 2023-07-03 13:28 | ED_ITS ---
HPI - SOB/Dyspnea General: Chief Complaint: Shortness of Breath/Dyspnea Stated Complaint: sob Time Seen by Provider: 07/03/23 13:25 History of Present Illness: HPI Narrative: 73-year-old male presents emergency department via EMS personnel with his . Patient states he was recently seen [facility] and told to come to the emergency department because they thought he was having some pneumonia. The states that he was recently started on duloxetine and she feels that maybe he is having a reaction to that. She states that he will intermittently wake up in the middle of the night sweating and she thought that that he might be having a reaction to this medication that he has taken for 4 weeks now. Patient states that he has a longstanding history of nonoperable lung cancer as well as progressive COPD. The patient's states that he does take albuterol treatments at home and his oxygen level is normally around 97 to 100%. 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, stage II Surgical History H/O circumcision H/O colonoscopy 2014 H/O esophagogastroduodenoscopy History of bronchoscopy (11/15/22) Navigational bronchoscopy/EBUS History of cataract extraction History of hip surgery History of kyphoplasty (03/04/22) T5 kyphoplasty Port-A-Cath in place S/P AAA (abdominal aortic aneurysm) repair Family History Other CAD (coronary artery disease) Cancer Diabetes Hypertension Stroke Denies family history of Anesthesia complication Bleeding disorder Social History (Reviewed 05/10/23 @ 08:01 by Roxanne Freed Smoking and tobacco/nicotine status: former use of tobacco/nicotine Quit status (tobacco/nicotine): has quit using Year quit tobacco: 2020 Former q uit date comment: 1.5 ppd X 54 years, Alcohol intake: former Substance/Drug Use: never Household members: significant other Marital status: Single Current occupational status: retired Physical Exam Narrative: EXAM NARRATIVE: Constitutional: the patient appears well nourished and of normal development. Vital signs as documented. No acute distress at present. Alert and oriented-to person, place, time and situation. Head, eyes, ears, nose, mouth, throat: Normocephalic, atraumatic. Pupils-equal, round, reactive to light. No scleral icterus. Normal-appearing external ears. Normal appearing nasal turbinates, no drainage. No obvious oral lesions, posterior oropharynx without erythema or exudates. Neck: Supple, trachea is midline, no lymphadenopathy, no jugular venous distension, thyromegaly, or carotid bruits. Carotid upstrokes are brisk bilaterally. Lungs: clear to auscultation to all lung cuevas. Symmetrical rise and fall of chest, no obvious signs of increased work of breathing at present. Cardiac: Regular rate and rhythm, positive S1, S2. No murmurs, rubs or gallops that I can appreciate Abdomen: Soft, non-tender to palpation, normal active bowel sounds to all quadrants. No palpable masses, no organomegaly and abdominal bruits. Extremities: 2+ pulses in the upper extremities that are equal bilaterally, 2+ pulses in the lower extremities that are equal bilaterally. Non-edematous. Moves all extremities well, sensation to all extremities are noted. Skin: Warm, dry, intact. Course ED course: Patient has remained without respiratory difficulty here in the emergency depar tment he has maintained his oxygen saturation level at 95% without any difficulty he does not and has not appeared to have any difficulty breathing. I suspect most likely that at present his difficulties stem from anxiety and panic attacks as he does have a significant behavioral health component to his illness given his cancer and knowledge of the end result. I have encouraged both the patient and his to follow-up with her primary care provider and behavioral health specialist. I discussed the radiographic examination as well as the EKGs and the laboratory values obtained during this ER visit Vital Signs: Vital signs: Vital Signs Temperature 97.7 F 07/03/23 13:20 Pulse Rate 81 07/03/23 15:56 Respiratory Rate 21 H 07/03/23 15:56 Blood Pressure 136/81 07/03/23 15:56 Pulse Oximetry 95 07/03/23 15:56 Oxygen Delivery Me thod Room Air 07/03/23 14:00 MDM - SOB/Dyspnea Medical Decision Making Physical exam completed and documented I will obtain a chest x-ray as well as cardiac enzymes I did offer to provide the patient with influenza and COVID sc sera and he has refused at present. I advised him that I would obtain laboratory evaluation to include a CBC and CMP as well as a procalcitonin and lactic acid level. Medical Records I reviewed the patient's medical records. Lab Data I reviewed the patient's lab results. 07/03/23 13:00 07/03/23 13:00 Labs/Radiology: Radiology Impressions Chest X-Ray 07/03/23 13:26 IMPRESSION: No acute findings. Laboratory Results WBC 11.49 10^3/uL (3.29-11.43) H 07/03/23 13:00 RBC 4.94 10^6/uL (3.85-5.65) 07/03/23 13:00 Hgb 15.80 g/dL (11.27-16.99) 07/03/23 13:00 Hct 46.6 % (37-53) 07/03/23 13:00 MCV 94.3 fl (82-101) 07/03/23 13:00 MCH 32.0 pg (27-33) 07/03/23 13:00 MCHC 33.9 g/dL (30-55) 07/03/23 13:00 RDW 12.0 % (12.1-15.1) L 07/03/23 13:00 Plt Count 256 10^3/cmm (157-399) 07/03/23 13:00 MPV 8.9 fL (7.4-10.4) 07/03/23 13:00 Neut % (Auto) 86.8 % 07/03/23 13:00 Lymph % (Auto) 7.0 % 07/03/23 13:00 Douglas % (Auto) 5.2 % 07/03/23 13:00 Eos % (Auto) 0.3 % 07/03/23 13:00 Baso % (Auto) 0.3 % 07/03/23 13:00 Neut # (Auto) 9.95 10^3/uL (1.8-7.7) H 07/03/23 13:00 Lymph # (Auto) 0.8 10^3/uL (0.8-4.8) 07/03/23 13:00 Douglas # (Auto) 0.6 10^3/uL (0.2-0.9) 07/03/23 13:00 Eos # (Auto) 0.0 10^3/uL (0.0-0.8) 07/03/23 13:00 Baso # (Auto) 0.0 10^3/uL (0.0-0.1) 07/03/23 13:00 Nucleated RBC % (auto) 0 % 07/03/23 13:00 Nucleated RBCs # 0.0 /100WBC 07/03/23 13:00 PT 12.90 SECONDS (12.1-14.9) 07/03/23 13:00 INR 0.94 (0.8-1.2) 07/03/23 13:00 Sodium 141 mmol/L (136-145) 07/03/23 13:00 Potassium 4.1 mmol/L (3.5-5.1) 07/03/23 13:00 Chloride 100 mmol/L (98-107) 07/03/23 13:00 Carbon Dioxide 29 mmol/L (22-29) 07/03/23 13:00 Anion Gap 16.1 (5-19) 07/03/23 13:00 BUN 9 mg/dL (8-23) 07/03/23 13:00 Creatinine 1.0 mg/dL (0.7-1.2) 07/03/23 13:00 GFR Calculation Not Reportable 07/03/23 13:00 Glucose 108 mg/dL (65-115) 07/03/23 13:00 Calculated Osmolality 291 mOsm/kg (285-295) 07/03/23 13:00 Lactic Acid 1.9 mmol/L (0.5-2.2) 07/03/23 14:14 Calcium 10.1 mg/dL (8.5-10.5) 07/03/23 13:00 Total Bilirubin 0.4 mg/dL (0.15-1.2) 07/03/23 13:00 AST 21 U/L (0-40) 07/03/23 13:00 ALT 32 U/L (0-41) 07/03/23 13:00 Alkaline Phosphatase 65 U/L (40-130) 07/03/23 13:00 Troponin T Baseline 16 ng/L (0-15) H 07/03/23 13:00 Troponin T 120 Minute 13.26 ng/L (0-15) 07/03/23 15:12 Delta Troponin T -2.74 ABS# (0-10) L 07/03/23 15:12 NT-Pro-B Natriuret Pep 214 pg/mL (0-125) H 07/03/23 13:00 Total Protein 7.0 g/dL (6.6-8.7) 07/03/23 13:00 Albumin 4.4 g/dL (3.5-5.2) 07/03/23 13:00 Globulin 2.6 g/dL (1.3-4.6) 07/03/23 13:00 Procalcitonin 0.04 ng/mL (0-0.5) 07/03/23 14:14 All radiology interpretation(s) finalized by discharge Discharge Plan Discharge Patient Disposition: Home Clinical Impression: Anxiety, Panic attack Condition: Stable Prescriptions: No Action albuterol sulfate 2.5 mg /3 mL (0.083 %) solution for nebulization 2.5 mg inhalation Q6H PRN (Reason: Dyspnea) cholecalciferol (vitamin D3) 50 mcg (2,000 unit) capsule 50 mcg PO DAILY multivitamin Tablet 1 tab PO DAILY prednisone 10 mg tablet 10 mg PO DAILY lidocaine 5 % adhesive patch,medicated 1 patch topical DAILY PRN (Reason: Pain) Rx Instructions: leave on most painful area for up to 12 hrs Breztri Aerosphere 160-9-4.8 mcg/actuation HFA aerosol inhaler 2 inh inhalation BID Qty: 10.7 3RF prochlorperazine maleate [Compazine] 10 mg tablet 10 mg PO Q4H PRN (Reason: Mild Nausea) Qty: 30 3RF benzonatate 100 mg capsule 100 mg PO BID PRN (Reason: cough) Qty: 20 3RF lorazepam 0.5 mg tablet 0.5 - 1 mg PO Q6H PRN (Reason: severe nausea) Qty: 60 3RF hydrocodone-acetaminophen 10-325 mg tablet 1 tab PO QID PRN (Reason: pain) 30 Days Qty: 120 0RF omeprazole 20 mg Tablet,Delayed Release (Dr/Ec) 20 mg PO DAILY bee pollen 1,000 mg Tablet,Chewable 1,000 mg PO BID alendronate 70 mg Tablet 70 mg PO Q7D Aspir-81 81 mg Tablet,Delayed Release (Dr/Ec) 81 mg PO DAILY rosuvastatin 20 mg tablet 10 mg PO QPM tramadol 50 mg tablet 50 mg PO Q46H PRN (Reason: Pain) duloxetine 20 mg Capsule,Delayed Release(Dr/Ec) 20 mg PO DAILY isosorbide mononitrate 30 mg Tablet Extended Release 24 Hr 30 mg PO DAILY Qty: 30 0RF metoprolol tartrate 25 mg Tablet 12.5 mg PO BID@0900,2100 Qty: 30 0RF azithromycin 250 mg tablet See Rx Instructions .ROUTE .COMPLEX Qty: 6 0RF Rx Instructions: For 250 mg dose pack: take 500 mg today (day 1), then 250 MG DAILY Discharge Orders: Discharge ED (Routine); Ordered 07/03/23 Ordered By: John Martinez Referrals: Ruthy Piña MD [Primary Care Provider] - Discharge Diet: Advance as tolerated Discharge Activity: Resume usual activity Patient Instructions: Opioid Safety, Pain Management Activity Restrictions/Additional Instructions: Activity Restrictions/Additional Instructions: Thank you for choosing [facility] for your healthcare needs today. Please realize that you were seen in the Emergency Department and that we are providing you with an emergency medical screening exam and this may not be complete and all inclusive of all the testing and or medical work-up that you may need to determine your ailment or severity of your illness. It is very important that you follow-up as instructed with your Primary care provider or Specialist for additional evaluation and to discuss your medical treatment plan. You may return to the Emergency Department should you have concerns or if your condition changes or worsens in any way. Coding Level of Care Code ED Instrument Shop Supervisor for Brandy Reece
--- NOTE | 2023-07-03 13:36 | PC.PHAR ---
[facility] AT 1:35 PM
[2023-07-03 13:46] LABS: INR 0.94 (0.8-1.2)
[2023-07-03 13:48] LABS: Basophils % 0.3 %; Eosinophils % 0.3 %; Hematocrit 46.6 % (37-53); Lymphocytes # 0.8 10^3/uL (0.8-4.8); Mean Corpuscular HGB Conc 33.9 g/dL (30-55); Mean Corpuscular Volume 94.3 fl (82-101); Mean Platelet Volume 8.9 fL (7.4-10.4); Monocytes # 0.6 10^3/uL (0.2-0.9); Monocytes % 5.2 %; Neutrophils # 9.95 10^3/uL (1.8-7.7); Neutrophils % 86.8 %; Nucleated Red Blood Cells % 0 %; Platelet Count 256 10^3/cmm (157-399); Red Blood Count 4.94 10^6/uL (3.85-5.65); White Blood Count 11.49 10^3/uL (3.29-11.43)
[2023-07-03 13:55] LABS: Troponin(5th) Baseline 16 ng/L (0-15)
[2023-07-03 14:00] VITALS: BP 157/96; PULSE 79; RESP 15; O2SAT 95
[2023-07-03 14:05] LABS: Alanine Aminotransferase 32 U/L (0-41); Albumin Level 4.4 g/dL (3.5-5.2); Alkaline Phosphatase 65 U/L (40-130); Anion Gap 16.1 (5-19); Aspartate Amino Transferase 21 U/L (0-40); Blood Urea Nitrogen 9 mg/dL (8-23); Calcium 10.1 mg/dL (8.5-10.5); Carbon Dioxide 29 mmol/L (22-29); Chloride 100 mmol/L (98-107); Creatinine Clr Calc Pharmacy 47.5518; Globulin 2.6 g/dL (1.3-4.6); Glucose 108 mg/dL (65-115); NT Pro B Type Natriuretic Pept 214 pg/mL (0-125); Osmolality Calculated 291 mOsm/kg (285-295); Potassium 4.1 mmol/L (3.5-5.1); Sodium 141 mmol/L (136-145); Total Bilirubin 0.4 mg/dL (0.15-1.2)
--- NOTE | 2023-07-03 14:05 | PC.NURSE ---
pt at bedside states she is poa and will be answering all the pts questions for him even though he can answer.
[2023-07-03 14:43] LABS: Lactic Sepsis W/Reflex 1.9 mmol/L (0.5-2.2)
[2023-07-03 14:51] LABS: Procalcitonin 0.04 ng/mL (0-0.5)
--- NOTE | 2023-07-03 15:28 | ECG_ITS ---
[facility] Test Date: 2023-07-03 Pat Name: Brian Russo Department: Room: Gender: Male Fish Packer: : 1950 Requested By: John Martinez Order Number: [id number] Renita MD: Sajan Kaufman M.D. Measurements Intervals [place] Rate: 67 P: 90 WI: 153 QRS: 80 QRSD: 96 T: 74 QT: 395 QTc: 420 Interpretive Statements SINUS RHYTHM Incomplete right bundle branch block Borderline EKG Electronically Signed On 07-04-2023 17:22:04 GRAIN OILSEED OR PASTURE FARM MANAGER by Sajan Kaufman M.D. [id number]
[2023-07-03 15:56] VITALS: BP 136/81; PULSE 81; RESP 21; O2SAT 95
[2023-07-03 15:59] LABS: Troponin 5 2HR 13.26 ng/L (0-15); Troponin 5 2HR Delta -2.74 ABS# (0-10)
== END 2023-07-03 15:57 | disposition home or self-care (01) ==
PROVIDERS: Emergency Provider Internal Medicine; PCP Family Medicine
DX: F41.9 Anxiety disorder, unspecified (principal); F41.0 Panic disorder [episodic paroxysmal anxiety]; Z79.82 Long term (current) use of aspirin; Z87.891 Personal history of nicotine dependence; J44.9 Chronic obstructive pulmonary disease, unspecified; E78.5 Hyperlipidemia, unspecified; I10 Essential (primary) hypertension; Z85.118 Personal history of other malignant neoplasm of bronchus and lung
CPT/HCPCS: 36415; 71045; 80053; 83605; 83880; 84145; 84484; 85025; 85610; 93005; 99285

== ENCOUNTER → 2023-07-04 10:36 | Outpatient (BNVA) | payer OTHER, SELFPAY | PROVIDERS: PCP Family Medicine; Visit Provider Surgery | DX: Z95.828 Presence of other vascular implants and grafts (principal) | CPT/HCPCS: 99213 ==

== ENCOUNTER 2023-07-11 09:13 | Inpatient (IN) | payer OTHER, SELFPAY ==
[2023-07-11] VITALS (101 sets, daily range): BP systolic 110–203; BP diastolic 59–135; PULSE 78–126; RESP 13–42; TEMP 36.4–37.1; O2SAT 88–100; BMI 15.9; BMI 16.0
--- NOTE | 2023-07-11 09:17 | XRR_ITS ---
PROCEDURE INFORMATION: Exam: XR Chest Exam date and time: 07/11/2023 9:24 AM Age: 73 years old Clinical indication: Cough and dyspnea and shortness of breath; Prior surgery; Surgery date: 6+ months; Surgery type: Port kypho; Patient HX: HX of lung cancer; Additional info: Dyspnea/cough TECHNIQUE: Imaging protocol: Radiologic exam of the chest. Views: 1 view. COMPARISON: CR XR chest 1V portable [id number] 07/03/2023 1:36 PM FINDINGS: Lungs: The lungs are hyperinflated as before consistent with COPD. There is linear scarring in the right midlung zone but there are no definite infiltrates detected. There are tiny calcified granulomata in the medial lung bases Pleural spaces: Unremarkable. No pleural effusion. No pneumothorax. Heart/Mediastinum: Unremarkable. No cardiomegaly. Bones/joints: Unremarkable. XR/XR chest 1V portable [id number] IMPRESSION: 1. Hyperinflation consistent with COPD 2. Scarring right midlung zone without definite infiltrate. 3. Evidence for previous granulomatous disease.
--- NOTE | 2023-07-11 09:18 | ECG_ITS ---
[facility] Test Date: 2023-07-11 Pat Name: Brian Russo Department: Room: Gender: Male Net Wpf Developer: : 1950 Requested By: Jose Nguyen Order Number: [id number] Renita MD: Doris Albert M.D. Measurements Intervals [place] Rate: 108 P: 75 MO: 135 QRS: 80 QRSD: 113 T: 71 QT: 325 QTc: 436 Interpretive Statements SINUS TACHYCARDIA WITH OCCASIONAL SUPRAVENTRICULAR PREMATURE COMPLEXES MODERATE INTRAVENTRICULAR CONDUCTION DELAY [110+ ms QRS DURATION] ABNORMAL RHYTHM ECG Compared to ECG 07/03/2023 15:28:20 Intraventricular conduction delay now present Sinus rhythm no longer present Incomplete right bundle-branch block no longer present Electronically Signed On 07-11-2023 14:55:05 KEYBOARD OPERATOR by Doris Albert M.D. [id number]
--- NOTE | 2023-07-11 09:19 | ED_ITS ---
HPI - SOB/Dyspnea 2 General: Chief Complaint: Shortness of Breath/Dyspnea Stated Complaint: SOB Time Seen by Provider: 07/11/23 09:17 Source: patient Mode of arrival: EMS History of Present Illness: HPI Narrative: 73-year-old male presents to the emergen cy room with complaints of difficulty breathing. He is not normally on oxygen he is now requiring 4 L she had significant difficulty with breathing overnight and did multiple nebulizers with moderate response to treatment. He has known lung CA stage III-IV according to the notes that was biopsy-proven non-small cell lung CA he has had good response to chemo and radiation he was recently on immunotherapy but this was stopped because of adverse reaction. PET scan June 13 showed a good response from the initial primary lesion as well as a hilar lymph node. There was a question of a metastatic lesion to the parathyroid. He is not currently receiving any treatment he denies any fever sweats or chills still has a moderately productive cough denies any hemoptysis no chest pain at this time. Oncology notes reviewed MD elicited complaint: shortness of breath and cough Pertinent past history: other (Non-small cell lung CA) Timing: constant Severity: moderate Associated symptoms: Deny abdominal pain, chest pain or fever(s) Review of Systems 2 Const: Denies: fever(s) or chills Card: Denies: chest pain Resp: Denies: dyspnea GI: Denies: abdominal pain : Denies: dysuria, urinary frequency or urinary urgency Musc: Denies: neck pain or back pain Skin/Breast: Denies: rash PFSH ED 2 PFSH: Medical History Hyperlipidemia Squamous cell carcinoma of lung, stage II Compression fracture of thoracic vertebra Osteoporosis Non-small cell lung cancer 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 PAD (peripheral artery disease) GERD (gastroesophageal reflux disease) Dyslipidemia HTN (hypertension), benign COPD (chronic obstructive pulmonary disease) Surgical History Port-A-Cath in place History of kyphoplasty (03/04/22) T5 kyphoplasty History of cataract extraction History of bronchoscopy (11/15/22) Navigational bronchoscopy/EBUS S/P AAA (abdominal aortic aneurysm) repair History of hip surgery H/O circumcision H/O esophagogastroduodenoscopy H/O colonoscopy 2014 Family History Other CAD (coronary artery disease) Cancer Diabetes Hypertension Stroke Denies family history of Anesthesia complication Bleeding disorder Social History Smoking and tobacco/nicotine status: former use of tobacco/nicotine Quit status (tobacco/nicotine): has quit using Year quit tobacco: 2019 Former quit date comment: 1.5 ppd X 54 years, Alcohol intake: former Substance/Drug Use: never Household members: significant other Marital status: Single Current occupational status: retired Physical Exam 2 Const: GENERAL APPEARANCE: anxious NUTRITIONAL APPEARANCE: cachectic O RIENTATION/CONSCIOUSNESS: Yes awake HENMT: COMMON NORMALS: normocephalic, atraumatic and hearing grossly normal bilaterally HEAD & SCALP: normocephalic and atraumatic Resp: EFFORT & INSPECTION: Yes labored and Yes uses accessory muscles A USCULTATION: rhonchi and wheezes Cardio: COMMON NORMALS: regular rhythm and No murmurs present (Cardio) R ATE: tachycardic RHYTHM: regular rhythm GI: COMMON NORMALS: Soft to palpation and No hepatosplenomegaly present A USCULTATION: Yes normoactive bowel sounds PALPATION: Yes Soft to palpation, No Tenderness to palpation present (GI), No Guarding due to palpation present (GI) and Yes No hepatosplenomegaly present Extremity: COMMON NORMALS: normal to inspection, capillary refill normal, no clubbing, cyanosis or edema, no calf tenderness and no pedal edema Skin: COMMON NORMALS: no rashes or lesions noted GENERAL SKIN EXAM: no rashes or lesions noted Course 2 Vital Signs: Vital signs: Vital Signs Temperature 98.0 F 07/13/23 10:43 Pulse Rate 67 07/13/23 15:19 Respiratory Rate 18 07/13/23 11:20 Blood Pressure 161/85 07/13/23 10:43 Pulse Oximetry 97 07/13/23 11:20 Oxygen Delivery Me thod Nasal Cannula 07/13/23 11:20 Oxygen Flow Rate 2 07/13/23 11:20 MDM - SOB/Dyspnea Medical Decision Making Acute exacerbation COPD patient is also extremely anxious he was given Ativan which did cause quite a bit of sedation. Flu and COVID swabs are pending. Will admit discussed with hospitalist, patient is not currently receiving any treatment for his lung cancer Medical Records I reviewed the patient's medical records. Lab Data I reviewed the patient's lab results. 07/12/23 04:25 07/12/23 04:25 Labs/Radiology: Radiology Impressions Chest X-Ray 07/11/23 09:17 IMPRESSION: 1. Hyperinflation consistent with COPD 2. Scarring right midlung zone without definite infiltrate. 3. Evidence for previous granulomatous disease. Laboratory Results WBC 15.83 10^3/uL (3.29-11.43) H 07/11/23 09:29 RBC 4.68 10^6/uL (3.85-5.65) 07/11/23 09: Hgb 15.20 g/dL (11.27-16.99) 07/11/23 09: Hct 45.7 % (37-53) 07/11/23 09: MCV 97.6 fl (82-101) 07/11/23 09: MCH 32.5 pg (27-33) 07/11/23 09: MCHC 33.3 g/dL (30-55) 07/11/23 09: RDW 12.1 % (12.1-15.1) 07/11/23 09: Plt Count 264 10^3/cmm (157-399) 07/11/23 09:29 MPV 9.0 fL (7.4-10.4) 07/11/23 09: Neut % (Auto) 62.9 % 07/11/23 09: Lymph % (Auto) 27.4 % 07/11/23 09:29 Lane % (Auto) 5.5 % 07/11/23 09:29 Eos % (Auto) 3.2 % 07/11/23 09: Baso % (Auto) 0.6 % 07/11/23 09:29 Neut # (Auto) 9.96 10^3/uL (1.8-7.7) H 07/11/23 09:29 Lymph # (Auto) 4.3 10^3/uL (0.8-4.8) 07/11/23 09:29 Lane # (Auto) 0.9 10^3/uL (0.2-0.9) 07/11/23 09:29 Eos # (Auto) 0.5 10^3/uL (0.0-0.8) 07/11/23 09:29 Baso # (Auto) 0.1 10^3/uL (0.0-0.1) 07/11/23 09:29 Nucleated RBC % (auto) 0 % 07/11/23 09:29 Nucleated RBCs # 0.0 /100WBC 07/11/23 09:29 Specimen Type Arterial 07/11/23 11:10 Sample Site Radial, right 07/11/23 11:10 ABG pH 7.38 (7.35-7.45) 07/11/23 11:10 ABG pCO2 56.0 mmHg (35-45) H 07/11/23 11:10 ABG pO2 63.5 mmHg (80.0-100.0) L 07/11/23 11:10 ABG PO2/FiO2 Ratio 0 07/11/23 11:10 ABG HCO3 33.1 mmol/L (22-26) H 07/11/23 11:10 ABG O2 Saturation 93.5 07/11/23 11:10 ABG Base Excess 6.1 mmol/L (-2.0-2.0) H 07/11/23 11:10 William Test Pos 07/11/23 11:10 A-a O2 Gradient 9.0 mmHg (5-10) 07/11/23 11:10 Hematocrit 46.2 % (42-52) 07/11/23 11:10 Hgb O2 Saturation 92.2 % (95-100) L 07/11/23 11:10 Carboxyhemoglobin 1.2 %THgb (0.4-20.1) 07/11/23 11:10 Methemoglobin 0.1 % (0.4-1.5) L 07/11/23 11:10 Total Hemoglobin 15.1 g/dL (14-18) 07/11/23 11:10 Sodium 144.0 mmol/L (131-143) H 07/11/23 11:10 Potassium 3.5 mmol/L (3.5-5.0) 07/11/23 11:10 Glucose 85.0 mg/dL (70-115) 07/11/23 11:10 Ionized Calcium 1.2 mmol/L (1.1-1.4) 07/11/23 11:10 O2 Delivery Device Nc 07/11/23 11:10 O2 Liters/Min 2.0 % 07/11/23 11:10 FiO2 28.0 % 07/11/23 11:10 Microbiology Lab Technician ID Sang 07/11/23 11:10 Sodium 145 mmol/L (136-145) 07/11/23 09:29 Potassium 3.8 mmol/L (3.5-5.1) 07/11/23 09:29 Chloride 100 mmol/L (98-107) 07/11/23 09:29 Carbon Dioxide 31 mmol/L (22-29) H 07/11/23 09:29 Anion Gap 17.8 (5-19) 07/11/23 09:29 BUN 10 mg/dL (8-23) 07/11/23 09:29 Creatinine 1.1 mg/dL (0.7-1.2) 07/11/23 09:29 GFR Calculation Not Reportable 07/11/23 09:29 Glucose 152 mg/dL (65-115) H 07/11/23 09:29 Calculated Osmolality 302 mOsm/kg (285-295) H 07/11/23 09:29 Lactic Acid 2.2 mmol/L (0.5-2.2) 07/11/23 09:39 Lactic Acid (Sepsis) 0.7 mmol/L (0.5-2.2) 07/11/23 12:39 Calcium 9.5 mg/dL (8.5-10.5) 07/11/23 09:29 Total Bilirubin 0.4 mg/dL (0.15-1.2) 07/11/23 09:29 AST 20 U/L (0-40) 07/11/23 09:29 ALT 22 U/L (0-41) 07/11/23 09:29 Alkaline Phosphatase 60 U/L (40-130) 07/11/23 09:29 Troponin T Baseline 20 ng/L (0-15) H 07/11/23 09:29 Troponin T 120 Minute 78.25 ng/L (0-15) H 07/11/23 11:26 Delta Troponin T 58.25 ABS# (0-10) H* 07/11/23 11:26 Troponin T Hi Sens 6Hr 66.15 ng/L (0-15) H 07/11/23 15:35 Troponin T Hi Sens 6Hr Delta 46.15 ng/L (0-12) H* 07/11/23 15:35 Total Protein 6.5 g/dL (6.6-8.7) L 07/11/23 09:29 Albumin 4.2 g/dL (3.5-5.2) 07/11/23 09:29 Globulin 2.3 g/dL (1.3-4.6) 07/11/23 09:29 Coronavirus 229E (PCR) Not detected (NOT DETECT) 07/11/23 12:06 Influenza Type A Ag negative (Negative) 07/11/23 12:08 Influenza Type B Ag negative (Negative) 07/11/23 12:08 SARS-CoV-2 (PCR) Not detected (NOT DETECT) 07/11/23 12:06 All radiology interpretation(s) finalized by discharge Discharge Plan Discharge Patient Disposition: Admitted As Inpatient Admit Provider: Yoni Gupta Clinical Impression: Acute exacerbation of chronic obstructive airways disease, Squamous cell carcinoma of lung, stage II Condition: Stable Discharge Diet: Usual diet Discharge Activity: Resume usual activity Coding Level of Care Code ED Fitter Welder for Brandy Reece
[2023-07-11 09:30] LABS: ABG PCO2 57.2 mmHg (35-45); ABG PH Result 7.34 (7.35-7.45); Alveolar-Arterial Oxygen Gradi 2.7 mmHg (5-10); Arterial Blood Gas Hematocrit 48.3 % (42-52); Base Excess ABG 3.2 mmol/L (-2.0-2.0); Blood Gas Allen Test Pos; Blood Gas Sample Type Arterial; Carboxyhemoglobin 1.9 %THgb (0.4-20.1); HCO3 ABG 30.8 mmol/L (22-26); HGB O2 Sat 89.5 % (95-100); Ionized Calcium Level - ABG 1.3 mmol/L (1.1-1.4); Methemoglobin 0.3 % (0.4-1.5); Oxygen Saturation ABG 91.5; PO2 ABG 60.1 mmHg (80.0-100.0); Potassium Level - ABG 4.1 mmol/L (3.5-5.0); Total Hemoglobin 15.8 g/dL (14-18)
[2023-07-11 09:31] LABS: Blood Gas Operator Identificat MONRO; Blood Gas Sample Site Radial, right; Oxygen Device ROOM AIR; PO2 FiO2 Ratio Arterial Blood 0
[2023-07-11] MEDS: ipratropium-albuterol 3 mL Neb 6 ML INHALATION (09:37)
[2023-07-11 09:39] LABS: Basophils # 0.1 10^3/uL (0.0-0.1); Basophils % 0.6 %; Eosinophils # 0.5 10^3/uL (0.0-0.8); Eosinophils % 3.2 %; Hematocrit 45.7 % (37-53); Lymphocytes # 4.3 10^3/uL (0.8-4.8); Lymphocytes % 27.4 %; Mean Corpuscular HGB Conc 33.3 g/dL (30-55); Mean Corpuscular Hemoglobin 32.5 pg (27-33); Mean Corpuscular Volume 97.6 fl (82-101); Monocytes # 0.9 10^3/uL (0.2-0.9); Monocytes % 5.5 %; Neutrophils # 9.96 10^3/uL (1.8-7.7); Neutrophils % 62.9 %; Nucleated Red Blood Cells % 0 %; Platelet Count 264 10^3/cmm (157-399); Red Blood Count 4.68 10^6/uL (3.85-5.65); Red Cell Distribution Width 12.1 % (12.1-15.1); White Blood Count 15.83 10^3/uL (3.29-11.43)
[2023-07-11] MEDS: dexamethasone 10 mg/mL INJ IM (09:58)
[2023-07-11] MEDS: LORazepam 2 mg/mL INJ 1 mL IVP (09:58)
[2023-07-11 10:09] LABS: Lactic Sepsis W/Reflex 2.2 mmol/L (0.5-2.2)
[2023-07-11 10:12] LABS: Alanine Aminotransferase 22 U/L (0-41); Albumin Level 4.2 g/dL (3.5-5.2); Alkaline Phosphatase 60 U/L (40-130); Anion Gap 17.8 (5-19); Aspartate Amino Transferase 20 U/L (0-40); Blood Urea Nitrogen 10 mg/dL (8-23); Calcium 9.5 mg/dL (8.5-10.5); Carbon Dioxide 31 mmol/L (22-29); Chloride 100 mmol/L (98-107); Creatinine Clr Calc Pharmacy 43.2289; Globulin 2.3 g/dL (1.3-4.6); Glucose 152 mg/dL (65-115); Osmolality Calculated 302 mOsm/kg (285-295); Potassium 3.8 mmol/L (3.5-5.1); Sodium 145 mmol/L (136-145); Total Bilirubin 0.4 mg/dL (0.15-1.2); Total Protein 6.5 g/dL (6.6-8.7)
--- NOTE | 2023-07-11 10:21 | PC.PHAR ---
[facility] 07/11/23 10:15AM
[2023-07-11 10:34] LABS: Troponin(5th) Baseline 20 ng/L (0-15)
--- NOTE | 2023-07-11 11:09 | PC.PHAR ---
TRAMADOL 50 MG [facility] LONG[facility]. ZITHROMAX 250 MG DOSE PACK FINISHED ON 06/17/23
--- NOTE | 2023-07-11 11:11 | ECG_ITS ---
[facility] Test Date: 2023-07-11 Pat Name: Brian Russo Department: Room: Gender: Male Frame Assembler: : 1950 Requested By: Jose Nguyen Order Number: [id number] Renita MD: Doris Albert M.D. Measurements Intervals [place] Rate: 126 P: 79 NV: 141 QRS: 83 QRSD: 98 T: 32 QT: 335 QTc: 487 Interpretive Statements SINUS TACHYCARDIA NONSPECIFIC ST & T-WAVE ABNORMALITY ABNORMAL RHYTHM ECG Compared to ECG 07/11/2023 09:20:15 T-wave abnormality now present Intraventricular conduction delay no longer present Electronically Signed On 07-11-2023 14:55:13 MEAT PROCESSOR by Doris Albert M.D. [id number]
[2023-07-11 11:24] LABS: ABG PH Result 7.38 (7.35-7.45); Arterial Blood Gas Hematocrit 46.2 % (42-52); Base Excess ABG 6.1 mmol/L (-2.0-2.0); Blood Gas Allen Test Pos; Blood Gas Operator Identificat MONRO; Blood Gas Sample Site Radial, right; Blood Gas Sample Type Arterial; Carboxyhemoglobin 1.2 %THgb (0.4-20.1); HCO3 ABG 33.1 mmol/L (22-26); HGB O2 Sat 92.2 % (95-100); Ionized Calcium Level - ABG 1.2 mmol/L (1.1-1.4); Methemoglobin 0.1 % (0.4-1.5); Oxygen Device NC; Oxygen Saturation ABG 93.5; PO2 ABG 63.5 mmHg (80.0-100.0); PO2 FiO2 Ratio Arterial Blood 0; Potassium Level - ABG 3.5 mmol/L (3.5-5.0); Total Hemoglobin 15.1 g/dL (14-18)
[2023-07-11 11:30] LABS: Reflex Lactate Order REFLEX LACTIC ORDERD
--- NOTE | 2023-07-11 11:36 | P.HP_ITS ---
Providers/Chief Complaint 2 Admitting Physician: Yoni Gupta MD Primary Care Provider: Ruthy Piña MD Chief Complaint: SOB History of Present Illness Brian Russo is a 73 year old male presenting to the emergency department with hypoxia, shortness of breath, wheezing over the last 3 to 4 days. He typically is not on any oxygen. He gets short of breath breath very easily. He has history of known lung cancer, stage IV, currently on no treatment as he was unable to tolerate anything further. He has not had any fever. He has had a cough productive of sputum but no hemoptysis. There is been no obvious chest pain. He has had no vomiting or diarrhea. Last good oral intake was yesterday. Patient received some Ativan before I saw him, so he was unable to add to this history. was interviewed, providing most of the history. reports he is very immobile currently, typically in a wheelchair/scooter Review of Systems 2 General: Reports: 10 or more systems reviewed and unremarkable except in HPI and below Card: Denies: chest pain Resp: Reports: dyspnea and productive cough GI: Denies: abdominal pain, hematochezia or melena Medications/Allergies Home Medications Medication Instructions Recorded Confirmed Last Taken Type albuterol sulfate 2.5 mg/3 mL 2.5 mg inhalation Q6H PRN Dyspnea 07/07/20 07/11/23 06/21/23 History (0.083 %) solution for nebulization omeprazole 20 mg tablet,delayed 20 mg PO QAM 08/21/20 07/11/23 07/03/23 History release lidocaine 5 % topical patch 1 patch topical DAILY PRN Pain 11/11/22 07/11/23 06/19/23 History prednisone 10 mg tablet 10 mg PO DAILY 11/11/22 07/11/23 07/03/23 History prochlorperazine maleate 10 mg 10 mg PO Q4H PRN Mild Nausea #30 12/13/22 07/11/23 Unknown Rx tablet (Compazine) tabs budesonide 160 mcg-glycopyr 9 2 inh inhalation BID #10.7 grams 03/28/23 07/11/23 07/03/23 Rx mcg-formot 4.8 mcg/actuation HFA inhaler (Breztri Aerosphere) duloxetine 20 mg capsule,delayed 20 mg PO DAILY 1007/11/23 07/03/23 History release isosorbide mononitrate 30 mg 30 mg PO DAILY #30 tabs 05/10/23 07/11/23 07/03/23 Rx tablet,extended release 24 hr metoprolol tartrate 25 mg tablet 12.5 mg (1/2 x 25 mg) PO 05/10/23 07/11/23 07/03/23 Rx BID@0900,2100 #30 tabs hydrocodone 10 mg-acetaminophen 1 tab PO QID PRN pain 30 days #120 06/30/23 07/11/23 Unknown Rx 325 mg tablet tabs alendronate 70 mg tablet 70 mg PO Q7D 07/03/23 07/11/23 Unknown History aspirin 81 mg tablet,delayed 81 mg PO DAILY 07/03/23 07/11/23 07/03/23 History release rosuvastatin 20 mg tablet 10 mg PO QPM 07/03/23 07/11/23 07/02/23 History albuterol sulfate 90 mcg/actuation 2 puff inhalation QID 07/11/23 07/11/23 Unknown History aerosol inhaler calcium carbonate 260 mg calcium 520 mg PO DAILY 07/11/23 07/11/23 Unknown History (648 mg) tablet carboxymethylcellulose sodium 1 % 1 drp ophthalmic (eye) QID PRN Dry 07/11/23 07/11/23 Unknown History eye gel in a dropperette Eyes food supplemt, lactose-reduced 1 ea PO TID 07/11/23 07/11/23 Unknown History guaifenesin 400 mg tablet 400 mg PO QID 07/11/23 07/11/23 Unknown History lorazepam 0.5 mg tablet 0.5 - 1 mg PO Q6H PRN severe nausea 07/11/23 07/11/23 Unknown History Allergies Allergy/AdvReac Type Severity Reaction Status Date / Time adhesive Allergy ALGY-Rash Verified 07/11/23 09:30 latex Allergy ALGY-Bliste Verified 07/11/23 09:30 r tetracycline AdvReac ADR-Halluci Verified 07/11/23 09:30 nating PFSH Acute 2 PFSH: Medical History Hyperlipidemia Squamous cell carcinoma of lung, stage II Compression fracture of thoracic vertebra Osteoporosis Non-small cell lung cancer 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 PAD (peripheral artery disease) GERD (gastroesophageal reflux disease) Dyslipidemia HTN (hypertension), benign COPD (chronic obstructive pulmonary disease) Surgical History Port-A-Cath in place History of kyphoplasty (03/04/22) T5 kyphoplasty History of cataract extraction History of bronchoscopy (11/15/22) Navigational bronchoscopy/EBUS S/P AAA (abdominal aortic aneurysm) repair History of hip surgery H/O circumcision H/O esophagogastroduodenoscopy H/O colonoscopy 2014 Family History Other CAD (coronary artery disease) Cancer Diabetes Hypertension Stroke Denies family history of Anesthesia complication Bleeding disorder Social History Smoking and tobacco/nicotine status: former use of tobacco/nicotine Quit status (tobacco/nicotine): has quit using Year quit tobacco: 2019 Former quit date comment: 1.5 ppd X 54 years, Alcohol intake: former Substance/Drug Use: never Household members: significant other Marital status: Single Current occupational status: retired Vitals/I&O/Wt Last Vital Signs Temp 97.8 F 07/11/23 09:15 Pulse 108 H 07/11/23 09:46 Resp 22 H 07/11/23 09:46 BP 203/135 07/11/23 09:15 Pulse Ox 95 07/11/23 09:46 O2 Del Method Nasal Cannula 07/11/23 09:46 O2 Flow Rate 2 07/11/23 09:46 Weight last 48 hrs Weight 50.349 kg Physical Exam 2 Narrative: General exam is a sleepy white male, who comes awake after being stuck for an ABG and says a few words. He has moderate respiratory distress with retractions, and audible wheezing HEENT: Atraumatic normocephalic. Oropharynx clear. Neck is supple no lymphadenopathy thyromegaly Cardiovascular the rhythm, slight tachycardia, no murmur Lungs bilateral expiratory wheezes. Diminished breath sounds bilaterally. No crackles. Abdomen is soft with positive bowel sounds. Surgery megaly exams deferred Extremities no cyanosis clubbing edema, cap refill brisk Skin no rash Neuro no focal deficits. Data 12/05/23 09:29 07/11/23 09:29 Other Labs: Repeat ABG demonstrates pH 7.38, pCO2 56, pO2 63 on 2 L LFTs are normal Troponin 20 with repeat pending Lactic acid 2.2 Albumin 4.2, calcium 9.5 Chest x-ray by my read demonstrates COPD, scarring EKG per my read demonstrates sinus tachycardia, normal axis, nonspecific ST-T wave changes Micro: Microbiology 07/11/23 09:39 Blood Culture - Preliminary Blood SPECIMEN COLLECTED 07/11/23 09:39 Blood Culture - Preliminary Blood SPECIMEN COLLECTED A&P Assessment and plan (1) Acute exacerbation of chronic obstructive airways disease: Patient presents with acute COPD exacerbation COVID and influenza swabs to be obtained Is received dexamethasone IV. initiate Solu-Medrol 60 IV every 8 hours DuoNeb every 4 hours Budesonide twice daily Levaquin IV Oxygen to maintain saturation 90 to 92%. Avoid too much oxygen as this could cause CO2 retention. Severity of presentation and respiratory distress consistent with acute hypoxic and hypercarbic respiratory failure (2) Squamous cell carcinoma of lung, stage II: Per patient's he is on no treatment currently, and they expect this to progress. She is amenable to meeting with hospice. (3) Acute metabolic encephalopathy: Patient with current evidence for acute metabolic encephalopathy. This may be secondary to some Ativan received in the emergency department. Continue to monitor for improvement. (4) Coronary artery disease: Patient with history of coronary disease with angiogram in May. Continue aspirin, beta-dionicio, statin Plan Other medical problems outlined in past medical history Lovenox for DVT prophylaxis Allow natural , discussed in detail with Attestations 2 Medical Necessity Statement*: Will need greater than 2 midnight stay for evaluation and treatment of acute COPD exacerbation as well as treatment with IV steroids Diagnoses Acute exacerbation of chronic obstructive airways disease J44.1 Squamous cell carcinoma of lung, stage II C34.90 Acute metabolic encephalopathy G93.41 Coronary artery disease I25.10 Time Spent (min) 48
[2023-07-11 11:49] LABS: Troponin 5 2HR 78.25 ng/L (0-15)
[2023-07-11 11:53] LABS: Troponin 5 2HR Delta 58.25 ABS# (0-10)
[2023-07-11 12:48] LABS: Influenza A by IFA negative (Negative); Influenza B by IFA negative (Negative)
[2023-07-11 13:25] LABS: Lactic Acid level (Lactate) 0.7 mmol/L (0.5-2.2)
--- NOTE | 2023-07-11 15:18 | ECG_ITS ---
[facility] Test Date: 2023-07-11 Pat Name: Brian Russo Department: Room: 270 Gender: Male Strategic Debriefing Specialist: : [id number] Requested By: Jose Nguyen Order Number: [id number] Renita MD: Doris Albert M.D. Measurements Intervals [place] Rate: 96 P: 76 MI: 135 QRS: 81 QRSD: 105 T: 71 QT: 347 QTc: 440 Interpretive Statements SINUS RHYTHM Compared to ECG 07/11/2023 11:11:37 Sinus tachycardia no longer present T-wave abnormality no longer present Electronically Signed On 07-11-2023 22:15:42 SLICING MACHINE OPERATOR/TENDER by Doris Albert M.D. [id number]
[2023-07-11 16:18] LABS: Troponin 5 6HR 66.15 ng/L (0-15)
[2023-07-11 16:24] LABS: Adenovirus Not Detected (NOT DETECT); Chlamydia Pneumoniae Not Detected (NOT DETECT); Coronavirus 229E,HKU1,NL63,OC4 Not Detected (NOT DETECT); Human Metapneumovirus Not Detected (NOT DETECT); Human Rhinovirus/Enterovirus Not Detected (NOT DETECT); Influenza A Not Detected (NOT DETECT); Influenza A H1 Not Detected (NOT DETECT); Influenza A H1-2009 Not Detected (NOT DETECT); Influenza A H3 Not Detected (NOT DETECT); Influenza B Not Detected (NOT DETECT); Mycoplasma Pneumoniae Not Detected (NOT DETECT); Parainfluenza Virus Type 1 Not Detected (NOT DETECT); Parainfluenza Virus Type 2 Not Detected (NOT DETECT); Parainfluenza Virus Type 3 Not Detected (NOT DETECT); Parainfluenza Virus Type 4 Not Detected (NOT DETECT); Respiratory Syncytial Virus A Not Detected (NOT DETECT); Respiratory Syncytial Virus B Not Detected (NOT DETECT); SARS-COV-2 Not Detected (NOT DETECT)
[2023-07-11 16:26] LABS: Troponin 5 6HR Delta 46.15 ng/L (0-12)
[2023-07-11] MEDS: sodium chloride 0.9% 1,000 ML 50 ML IV (17:36)
[2023-07-11] MEDS: levofloxacin-dextrose 5 % 750 MG/150 ML PREMIX 100 MG IV (17:36)
[2023-07-11] MEDS: methylPREDNISolone sod succ 125 mg/2 mL INJ 60 MG IVP (17:52)
[2023-07-11] MEDS: enoxaparin 40 mg/0.4 mL Syringe SUBCUT (17:53)
[2023-07-11] MEDS: ipratropium-albuterol 3 mL Neb INHALATION ×2 (19:27→23:53)
[2023-07-11] MEDS: budesonide 0.5 mg/2 mL Neb INHALATION (19:27)
[2023-07-11] MEDS: atorvastatin 40 mg Tablet PO (20:04)
[2023-07-11] MEDS: metoprolol tartrate 25 mg Tablet 12.5 MG PO (20:04)
[2023-07-11] MEDS: HYDROcodone-acetaminophen 10-325 mg Tablet 1 TAB PO (20:05)
[2023-07-12] VITALS (17 sets, daily range): BP systolic 118–139; BP diastolic 64–82; PULSE 72–116; RESP 16–19; TEMP 36.4–36.8; O2SAT 94–98
[2023-07-12] MEDS: methylPREDNISolone sod succ 125 mg/2 mL INJ 60 MG IVP ×2 (01:06→08:20)
[2023-07-12] MEDS: ipratropium-albuterol 3 mL Neb INHALATION ×5 (03:16→20:17)
[2023-07-12 05:05] LABS: Hematocrit 42.7 % (37-53); Lymphocytes # 0.3 10^3/uL (0.8-4.8); Lymphocytes % 8.5 %; Mean Corpuscular HGB Conc 33.5 g/dL (30-55); Mean Corpuscular Hemoglobin 32.2 pg (27-33); Mean Corpuscular Volume 96.2 fl (82-101); Mean Platelet Volume 8.9 fL (7.4-10.4); Monocytes % 0.8 %; Neutrophils # 3.41 10^3/uL (1.8-7.7); Neutrophils % 90.2 %; Nucleated Red Blood Cells % 0 %; Platelet Count 199 10^3/cmm (157-399); Red Blood Count 4.44 10^6/uL (3.85-5.65); White Blood Count 3.78 10^3/uL (3.29-11.43)
[2023-07-12 05:32] LABS: Alanine Aminotransferase 19 U/L (0-41); Alkaline Phosphatase 56 U/L (40-130); Anion Gap 15.9 (5-19); Aspartate Amino Transferase 19 U/L (0-40); Blood Urea Nitrogen 16 mg/dL (8-23); Calcium 9.3 mg/dL (8.5-10.5); Carbon Dioxide 29 mmol/L (22-29); Chloride 103 mmol/L (98-107); Globulin 1.6 g/dL (1.3-4.6); Glucose 112 mg/dL (65-115); Magnesium 2.3 mg/dL (1.7-2.3); Osmolality Calculated 298 mOsm/kg (285-295); Potassium 4.9 mmol/L (3.5-5.1); Sodium 143 mmol/L (136-145); Total Bilirubin 0.4 mg/dL (0.15-1.2); Total Protein 5.6 g/dL (6.6-8.7)
[2023-07-12] MEDS: budesonide 0.5 mg/2 mL Neb INHALATION ×2 (08:09→20:17)
[2023-07-12] MEDS: duloxetine 20 mg Capsule PO (08:20)
[2023-07-12] MEDS: aspirin 81 mg EC Tablet PO (08:20)
[2023-07-12] MEDS: metoprolol tartrate 25 mg Tablet 12.5 MG PO ×2 (08:21→20:30)
[2023-07-12] MEDS: pantoprazole DR 40 mg Tablet PO (08:21)
[2023-07-12] MEDS: isosorbide mononitrate ER 30 mg Tablet PO (08:21)
--- NOTE | 2023-07-12 10:12 | PC.CHAP ---
Pastoral Care Encounter/Spiritual Assessment Type of Contact [] Declined acidizer water well visit [] Patient/Family/Request visit [] Outpatient visit [] Follow-up visit [] Physician referral [] Code/Alert [x] Routine visit [] Staff referral [] Actively dying [] Patient sleeping [] Family support [] [] Out of room [] Palliative care [] [] Receiving care in room [] Pre-surgical visit [] Trauma [] Long length of stay [] ICU visit [] Other: Relational/Emotional Strength [x] Patient feels connected with others/family/visitors/staff [] Distress [] Loneliness/isolation [] Abandonment Spirituality of Patient [] Person of Ginny [] Attends Restoration of their Ginny [] Believes in Prayer [] Reads Bible or Orthodox materials [] There are Spiritual issues to be addressed Tab Cutting Machine Operator Interventions [x] Prayer [x] Active listening [] Non-anxious presence [] Spiritual/emotional support [] Crisis/trauma care [] Spiritual counseling [] Bereavement support [] Provided bereavement packet [] Provided Bible/devotional materials [] Provided toy/stuffed animal, coloring book to patient or family member [] Provided Communion [] Anointing/[place] [] Salvation [] Completed spiritual assessment [] Other: Impact on Illness or Injury [] Angry [] Fearful [] Anxious [] Often cries [] Exhaustion [] Unable to work [] Unable to attend pentecostalism [] Unable to walk/stand [] Unable to read [] Unable to drive [] Unable to eat/drink [] Unable to sleep [] Unable to be with family [] Patient intubated [] Other: Summary Time spent with patient 15 min
--- NOTE | 2023-07-12 11:01 | P.PN_ITS ---
Subjective 2 Subjective: Brian reports he is doing well but better. Less short of breath. No confusion this morning. is happy with his progress. They are still amenable to getting a hospice evaluation. Medications: Reviewed: Yes Vitals/I&O/Wt Last Vital Signs Temp 97.5 F L 07/12/23 08:00 Pulse 77 07/12/23 08:16 Resp 16 07/12/23 08:09 BP 125/76 07/12/23 08:00 Pulse Ox 98 07/12/23 08:09 O2 Del Method Nasal Cannula 07/12/23 04:11 O2 Flow Rate 1 07/12/23 08:09 07/11/23 07/12/23 07/12/23 22:59 06:59 14:59 Intake Total 150 / 150 360 / 510 Output Total 300 / 300 200 / 200 Balance -150 / -150 360 / 210 -200 / -200 Weight last 48 hrs Weight 52.163 kg Weight 50.802 kg Weight 50.349 kg Physical Exam 2 Narrative: General exam is no apparent distress, alert and conversive Neck is supple Cardiovascular regular rate and rhythm Lungs few expiratory wheezes. Diminished breath sounds bilaterally Abdomen soft Extremities no cyanosis clubbing edema Data 07/12/23 04:25 07/12/23 04:25 Micro: Microbiology 07/11/23 09:39 Blood Culture - Preliminary Blood NEGATIVE TO DATE 07/11/23 09:39 Blood Culture - Preliminary Blood NEGATIVE TO DATE A&P Assessment and plan (1) Acute exacerbation of chronic obstructive airways disease: Patient presents with acute COPD exacerbation COVID and influenza swabs negative Change IV Solu-Medrol to prednisone Continue DuoNeb every 4 hours Continue budesonide twice daily Continue Levaquin IV Oxygen to maintain saturation 90 to 92%. Avoid too much oxygen as this could cause CO2 retention. Severity of presentation and respiratory distress consistent with acute hypoxic and hypercarbic respiratory failure Possible discharge tomorrow No need for laboratory tomorrow (2) Squamous cell carcinoma of lung, stage II: Per patient's he is on no treatment currently, and they expect this to progress. She is amenable to meeting with hospice. Await hospice evaluation (3) Acute metabolic encephalopathy: Patient with current evidence for acute metabolic encephalopathy. This may be secondary to some Ativan received in the emergency department. This has now resolved (4) Coronary artery disease: Patient with history of coronary disease with angiogram in May. Continue aspirin, beta-dionicio, statin Plan Other medical problems outlined in past medical history Lovenox for DVT prophylaxis Allow natural , discussed in detail with Attestations 2 Medical Necessity Statement*: Needs continued hospital stay for IV antibiotics, frequent pulmonary treatments, transition to oral steroids. Possible discharge tomorrow Diagnoses Acute exacerbation of chronic obstructive airways disease J44.1 Squamous cell carcinoma of lung, stage II C34.90 Acute metabolic encephalopathy G93.41 Coronary artery disease I25.10 Time Spent (min) 24
[2023-07-12] MEDS: predniSONE 20 mg Tablet 40 MG PO (11:20)
[2023-07-12] MEDS: levofloxacin-dextrose 5 % 750 MG/150 ML PREMIX 100 MG IV (16:53)
[2023-07-12] MEDS: atorvastatin 40 mg Tablet PO (16:54)
[2023-07-12] MEDS: enoxaparin 40 mg/0.4 mL Syringe SUBCUT (16:54)
[2023-07-12] MEDS: HYDROcodone-acetaminophen 10-325 mg Tablet 1 TAB PO (20:31)
[2023-07-12 22:06] LABS: Glucose Point of Care 113 mg/dL (70-110)
[2023-07-13] VITALS (9 sets, daily range): BP systolic 116–161; BP diastolic 57–85; PULSE 67–88; RESP 16–22; TEMP 36.5–37; O2SAT 94–99; BMI 16.6
[2023-07-13] MEDS: budesonide 0.5 mg/2 mL Neb INHALATION (08:31)
[2023-07-13] MEDS: ipratropium-albuterol 3 mL Neb INHALATION ×2 (08:31→11:18)
[2023-07-13] MEDS: aspirin 81 mg EC Tablet PO (09:26)
[2023-07-13] MEDS: pantoprazole DR 40 mg Tablet PO (09:26)
[2023-07-13] MEDS: metoprolol tartrate 25 mg Tablet 12.5 MG PO (09:26)
[2023-07-13] MEDS: isosorbide mononitrate ER 30 mg Tablet PO (09:26)
[2023-07-13] MEDS: predniSONE 20 mg Tablet 40 MG PO (09:26)
[2023-07-13] MEDS: duloxetine 20 mg Capsule PO (09:37)
[2023-07-13] MEDS: oxyCODONE 5 mg IR Tab/Cap 10 MG PO (10:58)
--- NOTE | 2023-07-13 11:15 | PM.DCS ---
Discharge Providers Date of Admission: 07/11/23 15:50 Date of Discharge: July 13, 2023 Attending Provider at Admission: Yoni Gupta MD Attending Provider at Discharge: Yoni Gupta MD Primary Care Provider: Ruthy Piña MD Diagnoses at Discharge Discharge Diagnosis (1) Acute exacerbation of chronic obstructive airways disease: Status: Acute (2) Squamous cell carcinoma of lung, stage II: Status: Acute (3) Acute metabolic encephalopathy: Status: Acute (4) Coronary artery disease: Status: Acute Reason for Visit Reason for Visit: SOB Hospital Course Hospital Course Brian is a 73-year-old white male who presented to the hospital with wheezing and shortness of breath. He had no infiltrate on x-ray. He has a long history of end-stage COPD as well as squamous cell carcinoma of the lung. He was admitted for COPD exacerbation and placed on IV steroids, IV antibiotics, pulmonary toilet with DuoNeb every 4 hours and budesonide. He was tested for COVID and flu which were negative. During his hospital stay he had gradual improvement, was changed to oral steroids, and was ready for discharge on July 13. I had long discussions with the patient and the family regarding his quality of life at home. Secondary to the severity of his COPD he gets very short of breath with just minimal activity such as sitting. Secondary to his lung cancer which can no longer be treated, they were amenable to evaluation by hospice. They are going to go under hospice care, on discharge home. Patient and his are able to ask questions and agreed with the plan. Physical Exam Narrative: General exam is no distress Neck is supple Cardiovascular regular rate and rhythm Lungs diminished breath sounds bilaterally. Occasional expiratory wheeze. No crackles. Abdomen is soft Extremities no cyanosis clubbing or edema Discharge Data Studies Completed and Pending Completed Studies During Hospitalization Category Date Time Status XR chest 1V portable [id number] Stat Exams 07/11/23 09:17 Completed Pending at discharge Category Date Time Status Blood Culture Stat Lab 07/11/23 09:39 Results Radiology Impressions Chest X-Ray 07/11/23 09:17 IMPRESSION: 1. Hyperinflation consistent with COPD 2. Scarring right midlung zone without definite infiltrate. 3. Evidence for previous granulomatous disease. Laboratory Results WBC 3.78 10^3/uL (3.29-11.43) 07/12/23 04:25 RBC 4.44 10^6/uL (3.85-5.65) 07/12/23 04:25 Hgb 14.30 g/dL (11.27-16.99) 07/12/23 04:25 Hct 42.7 % (37-53) 07/12/23 04:25 MCV 96.2 fl (82-101) 07/12/23 04:25 MCH 32.2 pg (27-33) 07/12/23 04:25 MCHC 33.5 g/dL (30-55) 07/12/23 04:25 RDW 12.0 % (12.1-15.1) L 07/12/23 04:25 Plt Count 199 10^3/cmm (157-399) 07/12/23 04:25 MPV 8.9 fL (7.4-10.4) 07/12/23 04:25 Neut % (Auto) 90.2 % 07/12/23 04:25 Lymph % (Auto) 8.5 % 07/12/23 04:25 Charlton % (Auto) 0.8 % 07/12/23 04:25 Eos % (Auto) 0.0 % 07/12/23 04:25 Baso % (Auto) 0.0 % 07/12/23 04:25 Neut # (Auto) 3.41 10^3/uL (1.8-7.7) 07/12/23 04:25 Lymph # (Auto) 0.3 10^3/uL (0.8-4.8) L 07/12/23 04:25 Charlton # (Auto) 0.0 10^3/uL (0.2-0.9) L 07/12/23 04:25 Eos # (Auto) 0.0 10^3/uL (0.0-0.8) 07/12/23 04:25 Baso # (Auto) 0.0 10^3/uL (0.0-0.1) 07/12/23 04:25 Nucleated RBC % (auto) 0 % 07/12/23 04:25 Nucleated RBCs # 0.0 /100WBC 07/12/23 04:25 Specimen Type Arterial 07/11/23 11:10 Sample Site Radial, right 07/11/23 11:10 ABG pH 7.38 (7.35-7.45) 07/11/23 11:10 ABG pCO2 56.0 mmHg (35-45) H 07/11/23 11:10 ABG pO2 63.5 mmHg (80.0-100.0) L 07/11/23 11:10 ABG PO2/FiO2 Ratio 0 07/11/23 11:10 ABG HCO3 33.1 mmol/L (22-26) H 07/11/23 11:10 ABG O2 Saturation 93.5 07/11/23 11:10 ABG Base Excess 6.1 mmol/L (-2.0-2.0) H 07/11/23 11:10 William Test Pos 07/11/23 11:10 A-a O2 Gradient 9.0 mmHg (5-10) 07/11/23 11:10 Hematocrit 46.2 % (42-52) 07/11/23 11:10 Hgb O2 Saturation 92.2 % (95-100) L 07/11/23 11:10 Carboxyhemoglobin 1.2 %THgb (0.4-20.1) 07/11/23 11:10 Methemoglobin 0.1 % (0.4-1.5) L 07/11/23 11:10 Total Hemoglobin 15.1 g/dL (14-18) 07/11/23 11:10 Sodium 144.0 mmol/L (131-143) H 07/11/23 11:10 Potassium 3.5 mmol/L (3.5-5.0) 07/11/23 11:10 Glucose 85.0 mg/dL (70-115) 07/11/23 11:10 Ionized Calcium 1.2 mmol/L (1.1-1.4) 07/11/23 11:10 O2 Delivery Device Nc 07/11/23 11:10 O2 Liters/Min 2.0 % 07/11/23 11:10 FiO2 28.0 % 07/11/23 11:10 Picc Nurse ID Monro 07/11/23 11:10 Sodium 143 mmol/L (136-145) 07/12/23 04:25 Potassium 4.9 mmol/L (3.5-5.1) 07/12/23 04:25 Chloride 103 mmol/L (98-107) 07/12/23 04:25 Carbon Dioxide 29 mmol/L (22-29) 07/12/23 04:25 Anion Gap 15.9 (5-19) 07/12/23 04:25 BUN 16 mg/dL (8-23) 07/12/23 04:25 Creatinine 1.0 mg/dL (0.7-1.2) 07/12/23 04:25 GFR Calculation Not Reportable 07/12/23 04:25 Glucose 112 mg/dL (65-115) 07/12/23 04:25 POC Glucose 113 mg/dL (70-110) H 07/12/23 21:46 Calculated Osmolality 298 mOsm/kg (285-295) H 07/12/23 04:25 Lactic Acid 2.2 mmol/L (0.5-2.2) 07/11/23 09:39 Lactic Acid (Sepsis) 0.7 mmol/L (0.5-2.2) 07/11/23 12:39 Calcium 9.3 mg/dL (8.5-10.5) 07/12/23 04:25 Magnesium 2.3 mg/dL (1.7-2.3) 07/12/23 04:25 Total Bilirubin 0.4 mg/dL (0.15-1.2) 07/12/23 04:25 AST 19 U/L (0-40) 07/12/23 04:25 ALT 19 U/L (0-41) 07/12/23 04:25 Alkaline Phosphatase 56 U/L (40-130) 07/12/23 04:25 Troponin T Baseline 20 ng/L (0-15) H 07/11/23 09:29 Troponin T 120 Minute 78.25 ng/L (0-15) H 07/11/23 11:26 Delta Troponin T 58.25 ABS# (0-10) H* 07/11/23 11:26 Troponin T Hi Sens 6Hr 66.15 ng/L (0-15) H 07/11/23 15:35 Troponin T Hi Sens 6Hr Delta 46.15 ng/L (0-12) H* 07/11/23 15:35 Total Protein 5.6 g/dL (6.6-8.7) L 07/12/23 04:25 Albumin 4.0 g/dL (3.5-5.2) 07/12/23 04:25 Globulin 1.6 g/dL (1.3-4.6) 07/12/23 04:25 Coronavirus 229E (PCR) Not detected (NOT DETECT) 07/11/23 12:06 Influenza Type A Ag negative (Negative) 07/11/23 12:08 Influenza Type B Ag negative (Negative) 07/11/23 12:08 SARS-CoV-2 (PCR) Not detected (NOT DETECT) 07/11/23 12:06 Vitals Last Vital Signs Temp 98.0 F 07/13/23 10:43 Pulse 83 07/13/23 10:43 Resp 22 H 07/13/23 10:43 BP 161/85 07/13/23 10:43 Pulse Ox 96 07/13/23 10:43 O2 Del Method Nasal Cannula 07/13/23 10:43 O2 Flow Rate 2 07/13/23 08:00 Discharge Plan Discharge Patient Disposition: Hospice - Home Condition: Stable Prescriptions: New prednisone 20 mg Tablet 40 mg PO DAILY Qty: 6 0RF levofloxacin 750 mg tablet 750 mg PO DAILY 7 Days Qty: 7 0RF Continued albuterol sulfate 2.5 mg /3 mL (0.083 %) solution for nebulization 2.5 mg inhalation Q6H PRN (Reason: Dyspnea) prednisone 10 mg tablet 10 mg PO DAILY lidocaine 5 % adhesive patch,medicated 1 patch topical DAILY PRN (Reason: Pain) Rx Instructions: leave on most painful area for up to 12 hrs Nakiaeduardo Aerosphere 160-9-4.8 mcg/actuation HFA aerosol inhaler 2 inh inhalation BID Qty: 10.7 3RF prochlorperazine maleate [Compazine] 10 mg tablet 10 mg PO Q4H PRN (Reason: Mild Nausea) Qty: 30 3RF hydrocodone-acetaminophen 10-325 mg tablet 1 tab PO QID PRN (Reason: pain) 30 Days Qty: 120 0RF omeprazole 20 mg Tablet,Delayed Release (Dr/Ec) 20 mg PO QAM alendronate 70 mg Tablet 70 mg PO Q7D aspirin [Aspir-81] 81 mg Tablet,Delayed Release (Dr/Ec) 81 mg PO DAILY rosuvastatin 20 mg tablet 10 mg PO QPM duloxetine 20 mg Capsule,Delayed Release(Dr/Ec) 20 mg PO DAILY isosorbide mononitrate 30 mg Tablet Extended Release 24 Hr 30 mg PO DAILY Qty: 30 0RF metoprolol tartrate 25 mg Tablet 12.5 mg PO BID@0900,2100 Qty: 30 0RF albuterol sulfate 90 mcg/actuation Hfa Aerosol Inhaler 2 puff INHALATION QID Ensure Plus Liquid 1 ea PO TID guaifenesin 400 mg Tablet 400 mg PO QID calcium carbonate 260 mg calcium (648 mg) Tablet 520 mg PO DAILY carboxymethylcellulose sodium 1 % Dropperette,Gel 1 drp OPHTHALMIC (EYE) QID PRN (Reason: Dry Eyes) lorazepam 0.5 mg tablet 0.5 - 1 mg PO Q6H PRN (Reason: severe nausea) Discharge Orders: Discharge Order (Routine); Ordered 07/13/23 Ordered By: Yoni Gupta Referrals: Ruthy Piña MD [Primary Care Provider] - 4-7 days Discharge Diet: Usual diet Discharge Activity: Resume usual activity Activity Restrictions/Additional Instructions: Home oxygen 2 L per NC, titrate as needed Take all medicine as prescribed After completing course of 40 mg of prednisone go back to 10 mg of prednisone a day Take the Levaquin once daily for 7 days. Hospice on discharge Discharge Attestations Time Spent in Discharge Care*: greater than 30 min Quality Metrics Clinical Quality Measures [ No reported AMI, CVA or VTE this stay] Coding Level of Care Code 25891 Total time (in minutes) for Discharge: 32 Diagnoses Acute exacerbation of chronic obstructive airways disease J44.1 Squamous cell carcinoma of lung, stage II C34.90 Acute metabolic encephalopathy G93.41 Coronary artery disease I25.10
--- NOTE | 2023-07-13 15:20 | PC.NURSE ---
[facility] Nurse brings pt his oxygen concentrator. IV out. Education given. Leaves via w/c.
== END 2023-07-13 15:21 | disposition hospice, home (50) | DRG 190 ==
LOC: ER 12:38 → MEDSURG 15:50
PROVIDERS: Admitting Provider Internal Medicine; Emergency Provider Family Medicine; PCP Family Medicine; Visit Provider Internal Medicine
DX: J44.1 Chronic obstructive pulmonary disease with (acute) exacerbation (principal); G93.41 Metabolic encephalopathy; J96.01 Acute respiratory failure with hypoxia; J96.02 Acute respiratory failure with hypercapnia; Z87.891 Personal history of nicotine dependence; E78.5 Hyperlipidemia, unspecified; M81.0 Age-related osteoporosis without current pathological fracture; I73.9 Peripheral vascular disease, unspecified; K21.9 Gastro-esophageal reflux disease without esophagitis; I10 Essential (primary) hypertension; I25.10 Atherosclerotic heart disease of native coronary artery without angina pectoris; Z20.822 Contact with and (suspected) exposure to COVID-19
CPT/HCPCS: 36415; 36416; 36600; 71045; 80051; 80053; 82330; 82805; 82962; 83605; 83735; 84484; 85025; 87040; 87635; 87804; 93005; 94640; 96372; 96374; 99291; J1100; J1650; J1956; J2060; J2930; J7030; J7512; J7626